=== PATIENT | male | born 1980 | race Caucasian/White ===

== ENCOUNTER → 2017-10-25 14:57 | Outpatient (CLI) | payer BC, SELFPAY ==
[2017-10-25 17:24] LABS: Absolute Lymphocyte Count 2.85 X10^3/ul (0.83-4.51); Absolute Neutrophil Count 2.6 X10^3/uL (2.0-7.7); Basophil# 0.03 X10^3/uL; Basophil% 0.5 % (0-1); Eosinophil# 0.15 X10^3/uL; Eosinophils% 2.4 % (0-5); Hematocrit 26.3 % (40-54); Hemoglobin 8.7 g/dl (13.0-16.5); Lymphocyte # 2.85 X10^3/ul (4.0); Lymphocyte % 45.5 % (19-41); Mean Corp Hgb Conc 33.1 g/gl (32-36); Mean Corpuscular Hgb 43.3 pg (27.0-32.0); Mean Corpuscular Volume 130.8 fL (80-94); Mean Platelet Vol. 9.5 fl (6.2-12.0); Monocyte# 0.63 X10^3/uL; Neutrophil # 2.59 X10^3/uL (2.7-7.7); Neutrophil % 41.3 % (47-70); Platelet Count 297 K/mm3 (150-450); RBC Distribution Width CV 15.3 % (11.6-14.6); RBC Distribution Width SD 73.1 fl (35.1-43.9); Red Blood Count 2.01 M/mm3 (4.6-6.2); White Blood Count 6.3 K/mm3 (4.4-11.0)
[2017-10-25 17:28] LABS: POSITIVE COUNT NO; POSITIVE DIFFERENTIAL NO
[2017-10-25 17:29] LABS: Differential Indicated SCAN CRITERIA MET; POSITIVE MORPHOLOGY YES
[2017-10-25 17:50] LABS: PTHIN 77.1 pg/mL (18.4-80.1)
[2017-10-25 17:52] LABS: Anisocytosis 2+; Macrocytosis 2+; Platelet Estimate ADEQUATE (ADEQ); Target Cells RARE
[2017-10-25 17:53] LABS: Ovalocyte RARE
[2017-10-25 19:25] LABS: ALB/GLOB Ratio 1.5 RATIO (0.9-2.4); AST(SGOT) 11 U/L (15-37); Alanine Aminotransfer ALT/SGPT 27 U/L (16-61); Albumin, Serum 3.8 g/dL (3.2-5.0); Alkaline Phosphatase 82 U/L (45-117); Anion Gap 7 (5-15); BUN 16 mg/dL (7-18); BUN/Creat Ratio 17.6 RATIO (10-20); Calcium,Total 8.1 mg/dL (8.5-10.1); Chloride 109 mmol/L (98-107); Creatinine, Serum 0.91 mg/dL (0.70-1.30); EST Glomerular Filtration Rate 100 mL/min (>60); Est Glom Filt Rate - Afr Amer 121 mL/min (>60); Ferritin 719 ng/mL (26-388); Globulin 2.6 g/dL (2.2-4.2); Glucose 91 mg/dL (74-106); Iron 180 ug/dL (65-175); Iron Binding Capacity,Total 238 ug/dL (250-450); PERCENT IRON SATURATION 75.6 % (15.0-55.0); Potassium 3.8 mmol/L (3.5-5.1); Protein, Total 6.4 g/dL (6.4-8.2); Sodium Level 143 mmol/L (136-145)
[2017-10-28 15:03] LABS: Pathologist Review Reviewed
[2017-10-29 17:02] LABS: Vitamin D 1,25-Dihydroxy 56.4 pg/mL (19.9-79.3)
== END ==
PROVIDERS: Nurse Practitioner; Family Provider Family Medicine; PCP Family Medicine; Visit Provider Internal Medicine Hematology & Oncology
DX: M81.0 Age-related osteoporosis without current pathological fracture (principal); D61.01 Constitutional (pure) red blood cell aplasia
CPT/HCPCS: 80053; 82652; 82728; 83540; 83550; 83970; 85025

== ENCOUNTER → 2017-12-04 09:16 | Outpatient (CLI) | payer BC, SELFPAY ==
--- NOTE | 2017-12-04 09:25 | RAD_ITS ---
STUDY: X-RAY - UNILATERAL RIBS ( RIGHT ) WITH CHEST REASON FOR EXAM: Male, 37 years old. Right lower rib pain. TECHNIQUE - RIBS: 4 view(s) of the ribs. TECHNIQUE - CHEST: Single frontal view of the chest. COMPARISON: 07/18/2017. FINDINGS - RIBS: Stable multiple old bilateral rib fractures. There is one of the right lateral ninth rib which appears subacute but in fact was present on previous study. FINDINGS - CHEST: The lungs are clear and expanded. There is no demonstrated pleural abnormality. Normal size heart. Normal mediastinum and keny. Normal visualized pulmonary arteries. Normal visualized aortic arch and descending thoracic aorta. Normal visualized thoracic spine. Several stable old bilateral rib fractures. There is no demonstrated abnormality of the visualized soft tissue structures of the upper abdomen. RAD/Ribs Uni Min 3V w/PA Chest IMPRESSION: RIBS: Stable multiple old bilateral rib fractures. CHEST: No acute chest disease. Electronically Signed: Bridger Brar MD at 8:38 EDT , Service support ,
== END ==
PROVIDERS: Family Provider Family Medicine; PCP Family Medicine; Visit Provider Family Medicine
DX: R07.81 Pleurodynia (principal)
CPT/HCPCS: 71101

== ENCOUNTER → 2018-04-28 09:36 | Outpatient (CLI) | payer BC, SELFPAY ==
--- NOTE | 2018-04-28 09:39 | US_ITS ---
STUDY: ABDOMINAL ULTRASOUND - RIGHT UPPER QUADRANT REASON FOR VISIT: Male, 38 years old. Hematochromatosis, check for hepatocellular carcinoma. TECHNIQUE: Ultrasound evaluation of the right upper quadrant was performed with real-time and static hung-scale imaging. TECHNICAL QUALITY: Adequate. COMPARISON: None available. FINDINGS: Liver: The liver measures 15.2 cm. There is normal echogenicity of the liver. The intrahepatic bile ducts appear within normal limits. There is hepatic color flow. The direction of portal flow is hepatopetal. There is no demonstrated mass lesion or mass effect identified. No perihepatic fluid noted. Gallbladder: Normal appearing gallbladder. The gallbladder wall measures 2.8 mm. There is a negative sonographic Burton's sign. There is no pericholecystic fluid. There are no gallstones. Common Bile Duct (C.B.D.): The common bile duct measures 3.3 mm. Pancreas: Normal size of the head and body noted. Suboptimal imaging of finger tail limits evaluation. There is normal echogenicity of the visualized pancreas. There is no demonstrated visualized pancreatic mass or cyst. Right Kidney: Normal size of the right kidney. The right kidney measures 10.1 x 5.0 x 4.5 cm. Normal renal cortex. The right cortex measures approximately 1.5 cm. There is no demonstrated renal mass identified. Small right renal simple cyst inferior pole noted 1.8 x 1.3 x 0.9 cm with smooth well demarcated margins and no internal color Doppler signal identified. There is no right hydronephrosis. US/Liver IMPRESSION: Nonacute right upper quadrant ultrasound examination. No sonographic finding of acute cholecystitis, hepatic mass or complete biliary obstruction identified. Small right renal inferior pole simple cyst 1.8 x 1.3 x 0.9 cm. Electronically Signed: Brian Ramires, at 9:06 EDT Tel , Service support ,
== END ==
PROVIDERS: Family Provider Family Medicine; PCP Family Medicine; Visit Provider Internal Medicine Hematology & Oncology
DX: D61.01 Constitutional (pure) red blood cell aplasia (principal); E83.111 Hemochromatosis due to repeated red blood cell transfusions; M85.80 Other specified disorders of bone density and structure, unspecified site
CPT/HCPCS: 76705

== ENCOUNTER → 2018-07-22 09:40 | Outpatient (CLI) | payer BC, SELFPAY ==
[2018-07-22 11:56] LABS: Absolute Lymphocyte Count 2.53 X10^3/ul (0.83-4.51); Absolute Neutrophil Count 4.9 X10^3/uL (2.0-7.7); Basophil# 0.04 X10^3/uL; Basophil% 0.5 % (0-1); Eosinophils% 1.2 % (0-5); Hematocrit 36.9 % (40-54); Hemoglobin 12.4 g/dl (13.0-16.5); Lymphocyte # 2.53 X10^3/ul (4.0); Lymphocyte % 29.9 % (19-41); Mean Corp Hgb Conc 33.6 g/gl (32-36); Mean Corpuscular Hgb 44.4 pg (27.0-32.0); Mean Corpuscular Volume 132.3 fL (80-94); Mean Platelet Vol. 9.3 fl (6.2-12.0); Monocyte# 0.84 X10^3/uL; Monocyte% 9.9 % (0-10); Neutrophil # 4.86 X10^3/uL (2.7-7.7); Neutrophil % 57.4 % (47-70); Platelet Count 243 K/mm3 (150-450); RBC Distribution Width CV 14.1 % (11.6-14.6); RBC Distribution Width SD 65.8 fl (35.1-43.9); Red Blood Count 2.79 M/mm3 (4.6-6.2); White Blood Count 8.5 K/mm3 (4.4-11.0)
[2018-07-22 11:57] LABS: Differential Indicated SCAN CRITERIA MET; POSITIVE COUNT NO; POSITIVE DIFFERENTIAL NO; POSITIVE MORPHOLOGY YES
[2018-07-22 12:01] LABS: ALB/GLOB Ratio 1.6 RATIO (0.9-2.4); AST(SGOT) 14 U/L (15-37); Alanine Aminotransfer ALT/SGPT 30 U/L (16-61); Albumin, Serum 3.8 g/dL (3.2-5.0); Alkaline Phosphatase 82 U/L (45-117); Anion Gap 5 (5-15); BUN 11 mg/dL (7-18); BUN/Creat Ratio 10.8 RATIO (10-20); Calcium,Total 8.2 mg/dL (8.5-10.1); Chloride 107 mmol/L (98-107); Creatinine, Serum 1.02 mg/dL (0.70-1.30); EST Glomerular Filtration Rate 87 mL/min (>60); Est Glom Filt Rate - Afr Amer 105 mL/min (>60); Globulin 2.4 g/dL (2.2-4.2); Glucose 80 mg/dL (74-106); Protein, Total 6.2 g/dL (6.4-8.2); Sodium Level 141 mmol/L (136-145)
== END ==
PROVIDERS: Family Provider Family Medicine; PCP Family Medicine; Referring Provider Internal Medicine Rheumatology; Visit Provider Internal Medicine Rheumatology
DX: M06.4 Inflammatory polyarthropathy (principal); M21.40 Flat foot [pes planus] (acquired), unspecified foot; D61.01 Constitutional (pure) red blood cell aplasia; S32.000D Wedge compression fracture of unspecified lumbar vertebra, subsequent encounter for fracture with routine healing; E83.119 Hemochromatosis, unspecified; F32.9 Major depressive disorder, single episode, unspecified
CPT/HCPCS: 36415; 80053; 85025

== ENCOUNTER → 2018-07-25 14:14 | Outpatient (CLI) | payer BC, SELFPAY ==
--- NOTE | 2018-07-25 14:16 | RAD_ITS ---
HISTORY: Bilateral rib pain Comparison: Right rib series 12/04/2017 and 2 view chest 07/18/2017 Findings: With comparison to previous, no significant change. Numerous remote fractures with fracture callus at the right ribs. At least 3 remote rib fractures on the left with fracture callus. Chronic appearing mild compression deformities of the lower dorsal and upper lumbar spine. No acute fracture seen. No pneumothorax. Normal heart size. The mediastinum is not widened. No vascular congestion, pleural effusion, or acute pulmonary infiltration. RAD/Chest PA and Lateral IMPRESSION: 1. No acute disease or significant change. 2. Bilateral remote rib fractures, more numerous on the right. Additional chronic appearing vertebral compression deformities. Please see comment below. Comment: If there is no history of trauma, rib fractures and vertebral compression deformities are potentially related to pathologic-type fracture in this 38-year-old male. Whole body bone scan should be considered. at [id number] Reported and signed by: Skinny Rojas MD Electronically Signed: Skinny Rojas, at 23:35 EDT Tel , Service support ,
== END ==
PROVIDERS: Family Provider Family Medicine; PCP Family Medicine; Referring Provider Family Medicine; Visit Provider Family Medicine
DX: R07.81 Pleurodynia (principal)
CPT/HCPCS: 71046

== ENCOUNTER → 2018-09-09 12:19 | Outpatient (CLI) | payer BC, SELFPAY ==
[2018-09-09 17:12] LABS: Amphetamine Urine VISTA NEGATIVE (<1000 ng/mL); Barbiturate Urine VISTA NEGATIVE (< 200 ng/mL); Benzodiazepine Urine VISTA NEGATIVE (< 200 ng/mL); Cocaine Urine VISTA NEGATIVE (< 300 ng/mL); Ecstacy Urine VISTA NEGATIVE (< 500 ng/mL); Methadone Urine VISTA NEGATIVE (< 300 ng/mL); PCP Urine VISTA NEGATIVE (< 25 ng/mL); THC Urine VISTA NEGATIVE (< 50 ng/mL); Vista UDS pH Range 6
--- OUTSIDE RECORDS SUMMARY | 2018-12-11 22:12 | XMS RPT_ITS ---
:1980 Author Organization [facility] Support Name Relationship Address Phone BROOKE MICHAEL Unavailable [address] + [place] [address] D Unavailable Unavailable Unavailable BROOKE MICHAEL Unavailable [address] + [place], [place] [phone] BROOKE MICHAEL Unavailable [address] Unavailable [place], [place] [phone] NOT GIVEN Unavailable Unavailable Unavailable BROOKE MICHAEL Unavailable [address] + [place] [address] D Unavailable Unavailable Unavailable BROOKE MICHAEL Unavailable [address] + [place] [address] D Unavailable Unavailable Unavailable BROOKE MICHAEL Unavailable [address] + [place] [address] D Unavailable Unavailable Unavailable BROOKE MICHAEL Unavailable [address] + [place] [address] D Unavailable Unavailable Unavailable BROOKE MICHAEL Unavailable [address] + [place] [address] D Unavailable Unavailable Unavailable BROOKE MICHAEL Unavailable [address] + [place] [address] D Unavailable Unavailable Unavailable BROOKE MICHAEL Unavailable [address] + [place], [place] [phone] BROOKE MICHAEL Unavailable [address] Unavailable [place], [place] [id number] NOT GIVEN Unavailable Unavailable Unavailable BROOKE MICHAEL Unavailable [address] + [place], [place] [phone] BROOKE MICHAEL Unavailable [address] Unavailable [place], [place] [id number] NOT GIVEN Unavailable Unavailable Unavailable BROOKE MICHAEL Unavailable [address] + [place], [place] [id number] ALEC BROOKE Unavailable [address] Unavailable [place], [place] [id number] NOT GIVEN Unavailable Unavailable Unavailable ALEC BROOKE Unavailable [address] + [place] [address] D Unavailable Unavailable Unavailable ALEC BROOKE Unavailable [address] + [place], [place] [phone] ALEC BROOKE Unavailable [address] Unavailable [place], [place] [id number] NOT GIVEN Unavailable Unavailable Unavailable CRAFT BROOKE Unavailable [address] + [place], [place] [phone] ALEC BROOKE Unavailable [address] Unavailable [place], [place] [phone] NOT GIVEN Unavailable Unavailable Unavailable ALEC BROOKE Unavailable [address] + [place] [address] D Unavailable Unavailable Unavailable KATHLEEN MICHAELETTE Unavailable [address] + [place] [address] D Unavailable Unavailable Unavailable ALEC BROOKE Unavailable [address] + [place] [address] D Unavailable Unavailable Unavailable Care Team Providers Name Role Phone YANN SHIELDS MD Admitting Unavailable YANN SHIELDS MD Attending Unavailable YANN SHIELDS MD Primary Care Unavailable BUTCH VALENCIA DO Admitting Unavailable BUTCH VALENCIA DO Attending Unavailable NICA PEARSON Referring Unavailable BUTCH VALENCIA DO Primary Care Unavailable NICA PEARSON Consulting Unavailable PROVIDER, UNKNOWN Consulting Unavailable NICA PEARSNO Admitting Unavailable NICA PEARSON Attending Unavailable NICA PEARSON Primary Care Unavailable NICA PEARSON Consulting Unavailable PROVIDER, UNKNOWN Consulting Unavailable KNAPIC, FABIO S Admitting Unavailable KNAMANUEL FABIO S Attending Unavailable COREYAPIC, FABIO S Primary Care Unavailable NICA PEARSON Consulting Unavailable PROVIDER, UNKNOWN Consulting Unavailable YANN SHIELDS MD Admitting Unavailable YANN SHIELDS MD Attending Unavailable YANN SHIELDS MD Primary Care Unavailable NICA PEARSON Consulting Unavailable PROVIDER, UNKNOWN Consulting Unavailable NICA PEARSON Admitting Unavailable NICA PEARSON Attending Unavailable NICA PEARSON Primary Care Unavailable NICA PEARSON Consulting Unavailable PROVIDER, UNKNOWN Consulting Unavailable Nica Pearson Attending Unavailable Nica Pearson Primary Care Unavailable Isckarus, Mansour Attending Unavailable Nica Pearson Primary Care Unavailable Fabio Dacosta NP-C Consulting Unavailable Isckarus, Mansour Attending Unavailable Isckarus, Mansour Referring Unavailable Bonny Pearson Primary Care Unavailable Isckarus, Mansour Consulting Unavailable Isckarus, Mansour Attending Unavailable LiliNica rivera Primary Care Unavailable Isckarus, Mansour Consulting Unavailable KaushallanYann bush Attending Unavailable KaushallanJuliano bushma Referring Unavailable Nica Pearson Primary Care Unavailable Isckarus, Mansour Consulting Unavailable Isckarus, Mansour Attending Unavailable Nica Pearson Referring Unavailable LiliNica rivera Primary Care Unavailable Isckarus, Mansour Consulting Unavailable Isckarus, Mansour Attending Unavailable Nica Pearson Referring Unavailable Nica Pearson Primary Care Unavailable Isckarus, Mansour Consulting Unavailable Isckarus, Mansour Attending Unavailable Isckarus, Mansour Referring Unavailable Nica Pearson Primary Care Unavailable Jaxon Valencia Consulting Unavailable Nica Pearson Attending Unavailable Nica Pearson Primary Care Unavailable Isckarus, Mansour Attending Unavailable Nica Pearson Primary Care Unavailable LiliNica rivera Referring Unavailable LiliNica rivera Attending Unavailable LiliNica rivera Referring Unavailable LiliNica rivera Primary Care Unavailable PROBLEMS PROBLEMS DATE TYPE CONDITION / CODE ATTENDING STATUS SOURCE 09/09/2018 Unknown Z51.81 - Encounter Nica Pearson Active [place] for therapeutic drug Community level monitoring / Hospital Z51.81(ICD-10) Repository 08/04/2018 Unknown 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.01 - Isckarus, Active [place] 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 / Repository D61.01(ICD-10) 08/04/2018 Unknown D72.810 - Isckarus, Active [place] Lymphocytopenia / [facility] D72.810(ICD-10) Hospital Repository 08/04/2018 Unknown E83.111 - Isckarus, Active [place] Hemochromatosis due [facility] to repeated red Hospital blood cell Repository transfusions / E83.111(ICD-10) 07/25/2018 Unknown R07.81 - Pleurodynia Nica Pearson Active [place] / R07.81(ICD-10) Community Hospital Repository 07/22/2018 Unknown 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, Active [place] polyarthropathy / [facility] M06.4(ICD-10) Hospital Repository 07/22/2018 Unknown M21.40 - Flat foot Vellanrachelle, Active [place] [pes planus] [facility] (acquired), Hospital unspecified foot / Repository M21.40(ICD-10) 07/22/2018 Unknown S32.000D - Wedge Vellanrachelle, Active [place] compression fracture [facility] of unspecified Hospital lumbar vertebra, Repository subsequent encounter for fracture with routine healing / S32.000D(ICD-10) 07/22/2018 Unknown E83.119 - Vellanrachelle, Active [place] Hemochromatosis, [facility] unspecified / Hospital E83.119(ICD-10) Repository 05/15/2018 Unknown M85.80 - Other Isckarus, Active [place] specified disorders [facility] of bone density and Hospital structure, Repository unspecified site / M85.80(ICD-10) 03/17/2018 Admitting Sprain of anterior KNAPIC, Active [place] Pomerene Diagnosis cruciate ligament of [facility] left knee, initial Hospital encounter / Repository S14390X(ICD-10) 03/17/2018 Principle Sprain of anterior KNAPIC, Active [facility] Pomerene Diagnosis cruciate ligament of [facility] left knee, initial Hospital encounter / Repository X13898V(ICD-10) PROCEDURES PROCEDURES No Procedure Records FoundRESULTS RESULTS URINE DRUG SCREEN Collected: 09/09/2018 Status: F Source: [place] (VISTA) 12:23 PM [facility] HOSPITAL REPOSITORY Order Comment: List of Drugs Taken or Suspected? UNKNOWN TYPE CODE TESTS RESULT OUT OF RANGE REFERENCE UNITS LAB L505.0075 TO BE Normal CONFIRMED Result Comment: CONFIRMATORY TESTING FOR ALL POSITIVE URINE DRUG SCREEN RESULTS WILL ONLY BE SENT OUT UPON PHYSICIAN ORDER. VISTA Urine Drug Screen methods provide only preliminary analytical test results. A more specific alternate chemical method must be used in order to obtain a confirmed analytical result. Gas chromatography/mass spectrometery (GC/MS) is the preferred confirmatory method. Clinical consideration and professional judgement should be applied to any drug of abuse test result, particularly when preliminary positive results are used. URINE TCA TESTING MUST BE ORDERED SEPARATELY. USE TEST MNEMONIC: [facility] LAB L505.5005 VISTA UDS PH 6 Normal LAB L505.5015 <1000 ng/mL AMPHETAMINES Normal NEGATIVE LAB L505.5025 < 200 ng/mL BARBITIURATES Normal NEGATIVE LAB L505.5035 < 200 ng/mL BENZODIAZIPINE Normal NEGATIVE LAB L505.5045 < 300 ng/mL COCAINE Normal NEGATIVE LAB L505.5055 < 500 ng/mL ECSTACY Normal NEGATIVE LAB L505.5065 < 300 ng/mL METHADONE Normal NEGATIVE LAB L505.5075 < 300 ng/mL OPIATES Normal NEGATIVE LAB L505.5085 < 25 ng/mL PCP Normal NEGATIVE LAB L505.5095 < 50 ng/mL THC Normal NEGATIVE Performed By: #### L505.5000 #### [facility] [address] [facility] [place], [place], [address] CT CHEST W/CONTRAST Observed: 08/27/2018 Status: F Source: [facility] 11:[address] [address] Patient: TAN MICHAEL Phone#: : 1980 Age: 38 Gender: M Pt. Type: Out Account: [id number] Location: [facility] Ordering: NICA PEARSON Exam Date: 08/27/2018/11:06 Family Phys: Charge Code: [id number] Physician: Mingo Order #: [id number] DLP Dose#: PROCEDURE: CT CHEST WITH CONTRAST COMPARISON: None. INDICATIONS: Microfractures versus Rib Fractures TECHNIQUE: After obtaining the patient's consent, CT images were obtained with non-ionic intravenous contrast material. All CT scans at this facility use dose modulation, iterative reconstruction, and/or weight based dosing when appropriate to reduce radiation dose to as low as reasonably achievable. IV CONTRAST: Omnipaque 350,65ml TOTAL DOSE: CTDIvol(mGy) FINDINGS: LUNGS: A bleb is present in the anterior right middle lobe. No visible pulmonary disease. VASCULATURE: Normal. No visible pulmonary arterial thrombus or attenuation. KENY: Normal. No mass or adenopathy. MEDIASTINUM: Normal. No mass or adenopathy. CARDIAC: Normal. No enlargement, pericardial thickening, or significant calcification. AORTA: Normal. No aneurysm or dissection. PLEURA: Normal. No mass or effusion. CHEST WALL: Normal. No mass or axillary adenopathy. LIMITED ABDOMEN: Normal. Limited images of the upper abdomen are unremarkable. BONES: Superior endplate Schmorl's nodes are present at multiple levels. Healed posterior right rib fractures are present. OTHER: Negative. CONCLUSION: Continued Report - Page 2 of 2 Patient: TAN MICHAEL Phone#: : 1980 Age: 38 Gender: M Pt. Type: Out Account: [id number] Location: [facility] Ordering: NICA PEARSON Exam Date: 08/27/2018/11:06 Family Phys: Charge Code: [id number] Physician: Mingo Order #: [id number] DLP Dose#: 1. There is no evidence of acute pulmonary abnormality. 2. Multiple Schmorl's nodes at the thoracic vertebral bodies are noted. 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 His disease preapproved to be steroid responsive and dependent. He has been on prednisone since current dose being 20 mg daily titrated to a target hemoglobin of 12 g. Since diagnosis he has required less than a total of 10 units of packed red cell transfusions done last was in the early .. And he was diagnosed with iron overload and prescribed Exjade but that he has not taken the drug regularly and his total use been for less than 1 year intermittently. Around the same time he was diagnosed with steroid-induced bone loss and was prescribed calcium, vitamin D, and Fosamax. Lymphocytopenia has been noted the past as well as hypogammaglobulinemia. He has not suffered from any unusual or recurrent bacterial infections. On bactrim for PCP prophylaxis since 2016 and Fosamax for steroid induced bone loss. He reports that he suffered from chickenpox on more than one occasion, no shingles or other opportunistic infections. He was followed at the [facility] division of epidemiology and genetics as part of the study. 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 He already had a screening colonoscopy and an EGD( for GERD) Has a positive family history of colon cancer. There is believed that he inherited this illness from his mother who suffered from severe transfusion dependent anemia and has a son with the same diagnosis. Treatment: Prednisone Fosamax () Bactrim (2016) Exjade (noncompliant) PRBCs prn - Past Medical/Social History Past Medical History Past Medical History: Anemia,Arthritis,Blood transfusion,Depression, GERD,Headaches,Hereditary hemochromatosis, Osteopenia,Rheumatoid arthritis,Substance abuse, Fibromyalgia,Nausea,Fatigue,Constipation, Diarrhea Other Past Medical History: ACID REFLUX LUMBAR HERNIATED DISC HYPOTENSION FRACTURES Past Surgical History Surgical: Colonoscopy Other Surgical History: bone marrow procedure (3) Family History Paternal Past Medical History: Stroke Paternal History of Cancer Lung cancer,Pancreatic cancer Maternal Past Medical History: Anemia,Stroke Maternal History of Cancer: Lung cancer,Ovarian cancer Social History Social History: No changes Smoking Status Current every day smoker Review of Systems Constitutional:: Reports: - - Able to do ADL independently. Denies: Fever, Sweats, Weight loss, Appetite change, Chills Cardiovascular:: Denies: Chest pain, Palpitations, Dyspnea on exertion, Orthopnea, PND, Shortness of breath Respiratory: Denies: Cough, Hemoptysis, Shortness of Breath, Wheezing Gastrointestinal:: Denies: Abdominal pain, Nausea, Vomiting, Diarrhea, Constipation, Hematochezia Genitourinary: Denies: Dysuria, Hematuria, 15, Flank pain Musculoskeletal:: Reports: Arthritis, - - Ribs pain and arthritis. Denies: Back pain, Myalgia, Arthralgia Skin: Denies: Rash, Skin Changes, Wounds Neurological:: Denies: Headache, Dizziness, Visual changes, Tinnitus, Hearing loss Psychiatric: Denies: Anxiety, Depression, Homicidal Ideations, Suicidal Ideations Vital Signs Height 6 ft Weight: 82.01 kg Weight in Pounds 180.8 lbs Pulse Ox 95 - Physical Exam General: Alert, Oriented x3, No apparent distress, - - Cushingoid ECOG 1 HEENT: Atraumatic, PERRLA, EOMI, Normocephalic Oropharynx:: Dry mucosa Neck:: Supple, Trachea midline. Negative for: JVD, bilateral Cardiac:: Regular rate, Regular rhythm, Normal S1, Normal S2. Negative for: Murmur Lungs: Clear to auscultation, Excusion symmetrical. Negative for: Rhonchi, Wheezes Abdomen:: Soft, Non-tender, Non-distended. 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 Diagnosis was made at age 18 months, steroid responsive but dependent, total packed red blood cell transfusions less than 10 since diagnosis. Patient is currently on prednisone 20 mg daily with the target hemoglobin 10- 12 g/DL. He did feel poorly and his hemoglobin dropped to 10 g when the dose was reduced to 20 mg alternating with 10 mg. 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 Patient has been off iron chelation therapy with Exjade (intolerance to side effects and cost). He appears to have a mild asymptomatic iron overload with a serum ferritin of less than 1000 and no evidence for end organ damage. Due to his underlying bone marrow disease he would not be able to tolerate phlebotomy protocol. Therefore I advised monitoring of his hemochromatosis status and if there is progressive rise in his iron overload will have to resume iron chelation therapy. 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 Did not wish to switch to an injectable agent and next bone density is due July 2019. 4-lymphopenia secondary to chronic steroid therapy. Has started on Bactrim for PCP prophylaxis in late 2017. Patient may receive killed virus vaccines but no live virus vaccines. 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 Will need cancer screening, for prostate at age 46. He already had a colonoscopy due to some GI problems and positive family history of colon cancer. Impression and recommendations were discussed with patient. Follow-up in 3 months. Medications: Prescriptions This Visit Medication Instructions Recorded Alendronate Sodium [Fosamax] 70 mg PO QWEEK 05/29/17 Primary Care Provider: Bonny Pearson MD Referring Provider: Kathryn Cruz MD 08/04/18 3912 <Electronically signed by Kathryn Cruz MD> Date Kathryn Cruz MD Cosigner Signature: Date (if applicable) CC: CBC W/DIFF, AUTOMATED Collected: 08/04/2018 Status: F Source: [place] 10:35 AM [facility] REPOSITORY Order Comment: Reason for Laboratory Test . TYPE CODE TESTS RESULT OUT OF RANGE REFERENCE UNITS LAB L100.1000 4.4-11.0 K/mm3 Normal WBC 10.4 LAB L100.1200 4.6-6.2 M/mm3 Low RBC 2.90 LAB L100.1300 13.0-16.5 g/dl Low HGB 12.6 LAB L100.1400 40-54 % Low HCT 37.2 LAB L100.1500 80-94 fL High MCV 128.3 LAB L100.1600 27.0-32.0 pg High MCH 43.4 LAB L100.1700 32-36 g/gl Normal MCHC 33.9 LAB L100.1810 11.6-14.6 % Normal RDW CV 13.8 LAB L100.1820 35.1-43.9 fl High RDW SD 64.9 LAB L100.1900 150-450 K/mm3 Normal PLT 255 LAB L100.2000 6.2-12.0 fl Normal MPV 9.3 LAB L100.2100 47-70 % High NEUT% 85.6 LAB L100.2200 19-41 % Low LY% 9.2 LAB L100.2300 0-10 % Normal MONO% 4.6 LAB L100.2400 0-5 % Normal EO% 0.2 LAB L100.2500 0-1 % Normal BASO% 0.2 LAB L100.2550 0.0-0.9 % Normal IM GRAN % 0.200 Result Comment: IG% - Immature Granulocytes (promyelocytes, myelocytes and metamyelocytes) > 1% indicates that a LEFT SHIFT is Present. LAB L100.2620 2.0-7.7 X10 3/uL High Absolute Neut 8.9 LAB L100.2720 0.83-4.51 X10 3/ul Normal Absolute Lymph 0.95 Performed By: #### L100.0100 #### [facility] [place], [address] CHEST PA AND LATERAL Observed: 07/25/2018 Status: F Source: [place] 2:17 PM [facility] HOSPITAL REPOSITORY [facility] [address] [place] [address] Chest PA and Lateral MR#: [id number] Acct: [id number] Name: TAN MICHAEL Rep #: [id number] : 1980 M 38 From: Skinny Rojas MD PCP: Nica Pearson DO Status: REG CLI Study: Chest PA and Lateral Date of Exam: 07/25/18 Exam# [id number] Ordering Dr: Nica Pearson DO HISTORY: Bilateral rib pain Comparison: Right rib series 12/04/2017 and 2 view chest 07/18/2017 Findings: With comparison to previous, no significant change. Numerous remote fractures with fracture callus at the right ribs. At least 3 remote rib fractures on the left with fracture callus. Chronic appearing mild compression deformities of the lower dorsal and upper lumbar spine. No acute fracture seen. No pneumothorax. Normal heart size. The mediastinum is not widened. No vascular congestion, pleural effusion, or acute pulmonary infiltration. RAD/Chest PA and Lateral IMPRESSION: 1. No acute disease or significant change. 2. Bilateral remote rib fractures, more numerous on the right. Additional chronic appearing vertebral compression deformities. Please see comment below. Comment: If there is no history of trauma, rib fractures and vertebral compression deformities are potentially related to pathologic- type fracture in this 38-year-old male. Whole body bone scan should be considered. at [id number] Reported and signed by: Skinny Rojas MD Electronically Signed: Skinny Rojas, at 23:35 EDT Tel , Service support , CC: Nica Pearson DO Rn Research: Signed CBC W/DIFF, AUTOMATED Collected: 07/22/2018 Status: F Source: [place] 9:47 AM [facility] REPOSITORY TYPE CODE TESTS RESULT OUT OF RANGE REFERENCE UNITS LAB L100.1000 4.4-11.0 K/mm3 Normal WBC 8.5 LAB L100.1200 4.6-6.2 M/mm3 Low RBC 2.79 LAB L100.1300 13.0-16.5 g/dl Low HGB 12.4 LAB L100.1400 40-54 % Low HCT 36.9 LAB L100.1500 80-94 fL High MCV 132.3 LAB L100.1600 27.0-32.0 pg High MCH 44.4 LAB L100.1700 32-36 g/gl Normal MCHC 33.6 LAB L100.1810 11.6-14.6 % Normal RDW CV 14.1 LAB L100.1820 35.1-43.9 fl High RDW SD 65.8 LAB L100.1900 150-450 K/mm3 Normal PLT 243 LAB L100.2000 6.2-12.0 fl Normal MPV 9.3 LAB L100.2100 47-70 % Normal NEUT% 57.4 LAB L100.2200 19-41 % Normal LY% 29.9 LAB L100.2300 0-10 % Normal MONO% 9.9 LAB L100.2400 0-5 % Normal EO% 1.2 LAB L100.2500 0-1 % Normal BASO% 0.5 LAB L100.2550 0.0-0.9 % High IM GRAN % 1.100 Result Comment: IG% - Immature Granulocytes (promyelocytes, myelocytes and metamyelocytes) > 1% indicates that a LEFT SHIFT is Present. LAB L100.2620 2.0-7.7 X10 3/uL Normal Absolute Neut 4.9 LAB L100.2720 0.83-4.51 X10 3/ul Normal Absolute Lymph 2.53 LAB L100.4500 Normal SMEAR COMMENT COMMENT Result Comment: SLIDE SCANNED - 1+ ANISO. Performed By: #### L100.0100 #### [facility] [address] [place], [address] COMPREHENSIVE METABOLIC Collected: 07/22/2018 Status: F Source: [place] 9:47 AM [facility] REPOSITORY TYPE CODE TESTS RESULT OUT OF RANGE REFERENCE UNITS LAB L501.0100 74-106 mg/dL Normal GLU 80 Result Comment: Please note revised GLUCOSE reference range effective 2017. LAB L501.1000 7-18 mg/dL Normal BUN 11 LAB L501.1100 0.70-1.30 mg/dL Normal CREAT,SERUM 1.02 Result Comment: The validity of the calculated GFR AND GFRAA in patients over 70 years has not been determined. Clinical correlation is essential. LAB L501.1110 >60 mL/min Normal EST GFR 87 Result Comment: Non- GFR Calc LAB L501.1115 >60 mL/min Normal EST GFR - AA 105 Result Comment: GFR Calc LAB L501.1300 10-20 RATIO Normal BUN/CRE 10.8 LAB L501.1500 6.4-8.2 g/dL Low T PROT 6.2 LAB L501.1800 3.2-5.0 g/dL Normal ALB 3.8 LAB L501.1950 2.2-4.2 g/dL Normal GLOB 2.4 LAB L501.2000 0.9-2.4 RATIO Normal A/G 1.6 LAB L501.2200 8.5-10.1 mg/dL Low CA 8.2 LAB L501.4100 15-37 U/L Low AST 14 LAB L501.4305 45-117 U/L Normal ALK P 82 LAB L501.4405 16-61 U/L Normal ALT 30 LAB L501.4600 0.20-1.00 mg/dL T Normal BILI 0.20 LAB L501.5300 136-145 mmol/L NA Normal 141 LAB L501.5600 3.5-5.1 mmol/L K Normal 4.0 LAB L501.5900 98-107 mmol/L CL Normal 107 LAB L501.6100 21.0-32.0 mmol/L Normal CO2 29.0 LAB L501.6200 5-15 Normal GAP 5 Performed By: #### L500.4050 #### [facility] [address] [place], [address] ONCOLOGY VISIT REPORT Observed: 05/05/2018 Status: F Source: [place] 5:03 PM [facility] HOSPITAL REPOSITORY [facility] [address] [facility] 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 His disease preapproved to be steroid responsive and dependent. He has been on prednisone since current dose being 20 mg daily titrated to a target hemoglobin of 12 g. Since diagnosis he has required less than a total of 10 units of packed red cell transfusions done last was in the early .. And he was diagnosed with iron overload and prescribed Exjade but that he has not taken the drug regularly and his total use been for less than 1 year intermittently. Around the same time he was diagnosed with steroid-induced bone loss and was prescribed calcium, vitamin D, and Fosamax. Lymphocytopenia has been noted the past as well as hypogammaglobulinemia. He has not suffered from any unusual or recurrent bacterial infections. On bactrim for PCP prophylaxis since 2016 and Fosamax for steroid induced bone loss. He reports that he suffered from chickenpox on more than one occasion, no shingles or other opportunistic infections. He was followed at the [facility] division of epidemiology and genetics as part of the study. 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 He already had a screening colonoscopy and an EGD( for GERD) Has a positive family history of colon cancer. There is believed that he inherited this illness from his mother who suffered from severe transfusion dependent anemia and has a son with the same diagnosis. Treatment: Prednisone Fosamax (2010s) Bactrim (2017) Exjade (noncompliant) PRBCs prn - Past Medical/Social History Past Medical History Past Medical History: Anemia,Arthritis,Blood transfusion,Depression, GERD,Headaches,Hereditary hemochromatosis, Osteopenia,Rheumatoid arthritis,Substance abuse, Fibromyalgia,Nausea,Fatigue,Constipation, Diarrhea Other Past Medical History: ACID REFLUX LUMBAR HERNIATED DISC HYPOTENSION FRACTURES Past Surgical History Surgical: Colonoscopy Other Surgical History: bone marrow procedure (3) Family History Paternal Past Medical History: Stroke Paternal History of Cancer Lung cancer,Pancreatic cancer Maternal Past Medical History: Anemia,Stroke Maternal History of Cancer: Lung cancer,Ovarian cancer Social History Social History: No changes Smoking Status Current every day smoker Review of Systems Constitutional:: Reports: Weakness, Fatigue - Chronic. Denies: Fever, Sweats, Weight loss, Appetite change, Chills Cardiovascular:: Denies: Chest pain, Palpitations, Dyspnea on exertion, Orthopnea, PND, Shortness of breath Respiratory: Denies: Cough, Hemoptysis, Shortness of Breath, Wheezing Gastrointestinal:: Denies: Abdominal pain, Nausea, Vomiting, Diarrhea, Constipation, Hematochezia Genitourinary: Denies: Dysuria, Hematuria, 15, Flank pain Musculoskeletal:: Denies: Back pain, Myalgia, Arthralgia Skin: Denies: Rash, Skin Changes, Wounds Neurological:: Denies: Headache, Dizziness, Visual changes, Tinnitus, Hearing loss Psychiatric: Denies: Anxiety, Depression, Homicidal Ideations, Suicidal Ideations Vital Signs Height 6 ft Weight: 82.01 kg Weight in Pounds 180.8 lbs Pulse Ox 95 - Physical Exam General: Alert, Oriented x3, No apparent distress, - - ECOG 1, cushingoid HEENT: Atraumatic, PERRLA, EOMI, Normocephalic Oropharynx:: Dry mucosa Neck:: Supple, Trachea midline. Negative for: JVD, bilateral Cardiac:: Regular rate, Regular rhythm, Normal S1, Normal S2. Negative for: Murmur Lungs: Clear to auscultation, Excusion symmetrical. Negative for: Rhonchi, Wheezes Abdomen:: Soft, Non-tender, Non-distended. Negative for: Hepatosplenomegaly Extremities:: Negative for: Cyanosis, Edema Neurological: Neuro grossly intact Skin:: Negative for: Lesions, Rash, Petechiae, Ecchymosis Psychiatric:: Appropriate affect, Euthymic Lymphatics:: Negative for: Cervical lymphadenopathy, Supraclavicular lymphadenopathy Laboratory Data: Laboratory Tests WBC 6.7 (4.4-11.0) K/mm3 RBC 2.83 L (4.6-6.2) M/mm3 Hgb 12.6 L (13.0-16.5) g/dl Laboratory Tests Hgb 10.8 L 12.1 L 12.1 L Ferritin Hgb 12.3 L 11.4 L 12.6 L Ferritin Hgb 13.8 12.0 L Ferritin 661 H Hgb 8.7 L 10.5 L Ferritin 719 H Hgb 11.8 L 11.5 L 12.6 L Ferritin Assessment and Plan 37-year-old male with 1- Briana-Blackfan anemia (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 Diagnosis was made at age 18 months, steroid responsive but dependent, total packed red blood cell transfusions less than 10 since diagnosis. Patient is currently on prednisone 20 mg daily with the target hemoglobin 10- 12 g/DL. 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 Patient has been off iron chelation therapy with Exjade (intolerance to side effects and cost). He appears to have a mild asymptomatic iron overload with a serum ferritin of less than 1000 and no evidence for end organ damage. Due to his underlying bone marrow disease he would not be able to tolerate phlebotomy protocol. Therefore I advised monitoring of his hemochromatosis status and if there is progressive rise in his iron overload will have to resume iron chelation therapy. 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 Did not wish to switch to an injectable agent and next bone density is due July 2019. 4-lymphopenia secondary to chronic steroid therapy. Has started on Bactrim for PCP prophylaxis in late 2017. Patient may receive killed virus vaccines but no live virus vaccines. 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 Will need cancer screening, for prostate at age 46. He already had a colonoscopy due to some GI problems and positive family history of colon cancer. Impression and recommendations were discussed with patient. Follow-up in 3 months. Medications: Prescriptions This Visit Medication Instructions Recorded Alendronate Sodium [Fosamax] 70 mg PO QWEEK 05/29/17 Primary Care Provider: Bonny Pearson MD Referring Provider: Kathryn Cruz MD 05/05/18 2883 <Electronically signed by Kathryn Cruz MD> Date Kathryn Cruz MD Cosigner Signature: Date (if applicable) CC: CBC W/DIFF, AUTOMATED Collected: 05/05/2018 Status: F Source: [place] 10:42 AM [facility] REPOSITORY Order Comment: Reason for Laboratory Test . TYPE CODE TESTS RESULT OUT OF RANGE REFERENCE UNITS LAB L100.1000 4.4-11.0 K/mm3 Normal WBC 6.7 LAB L100.1200 4.6-6.2 M/mm3 Low RBC 2.83 LAB L100.1300 13.0-16.5 g/dl Low HGB 12.6 LAB L100.1400 40-54 % Low HCT 36.4 LAB L100.1500 80-94 fL High MCV 128.6 LAB L100.1600 27.0-32.0 pg High MCH 44.5 LAB L100.1700 32-36 g/gl Normal MCHC 34.6 LAB L100.1810 11.6-14.6 % Normal RDW CV 13.3 LAB L100.1820 35.1-43.9 fl High RDW SD 60.8 LAB L100.1900 150-450 K/mm3 Normal PLT 246 LAB L100.2000 6.2-12.0 fl Normal MPV 9.1 LAB L100.2100 47-70 % Normal NEUT% 67.6 LAB L100.2200 19-41 % Normal LY% 21.8 LAB L100.2300 0-10 % Normal MONO% 8.9 LAB L100.2400 0-5 % Normal EO% 0.8 LAB L100.2500 0-1 % Normal BASO% 0.3 LAB L100.2550 0.0-0.9 % Normal IM GRAN % 0.600 Result Comment: IG% - Immature Granulocytes (promyelocytes, myelocytes and metamyelocytes) > 1% indicates that a LEFT SHIFT is Present. LAB L100.2620 2.0-7.7 X10 3/uL Normal Absolute Neut 4.5 LAB L100.2720 0.83-4.51 X10 3/ul Normal Absolute Lymph 1.45 Performed By: #### L100.0100, L500.4050 #### [facility] [address] [place], [address] COMPREHENSIVE METABOLIC Collected: 05/05/2018 Status: F Source: [facility] 10:42 AM [facility] REPOSITORY Order Comment: Reason for Laboratory Test . TYPE CODE TESTS RESULT OUT OF RANGE REFERENCE UNITS LAB L501.0100 74-106 mg/dL Normal GLU 85 Result Comment: Please note revised GLUCOSE reference range effective 2017. LAB L501.1000 7-18 mg/dL Normal BUN 14 LAB L501.1100 0.70-1.30 mg/dL Normal CREAT,SERUM 0.92 Result Comment: The validity of the calculated GFR AND GFRAA in patients over 70 years has not been determined. Clinical correlation is essential. LAB L501.1110 >60 mL/min Normal EST GFR 99 Result Comment: Non- GFR Calc LAB L501.1115 >60 mL/min Normal EST GFR - AA 119 Result Comment: GFR Calc LAB L501.1255 ml/min Normal Estimated CRCL 120.66 LAB L501.1300 10-20 RATIO BUN/CRE Normal 15.3 LAB L501.1500 6.4-8. g/dL 2 T PROT Normal 6.7 LAB L501.1800 3.2-5. g/dL 0 ALB Normal 4.0 LAB L501.1950 2.2-4. g/dL 2 GLOB Normal 2.7 LAB L501.2000 0.9-2. RATIO 4 A/G Normal 1.5 LAB L501.2200 8.5-10 mg/dL .1 CA Normal 8.6 LAB L501.4100 15-37 U/L Low AST 11 LAB L501.4305 45-117 U/L ALK P Normal 81 LAB L501.4405 16-61 U/L ALT Normal 22 LAB L501.4600 0.20-1 mg/dL .00 T BILI Normal 0.30 LAB L501.5300 136-14 mmol/L 5 NA Normal 141 LAB L501.5600 3.5-5. mmol/L 1 K Normal 4.0 LAB L501.5900 98-107 mmol/L CL Normal 107 LAB L501.6100 21.0-3 mmol/L 2.0 CO2 Normal 29.0 LAB L501.6200 5-15 GAP Normal 5 Performed By: #### L100.0100, L500.4050 #### [facility] [address] [place], [place], [id number] AFP, TUMOR MARKER Collected: 05/05/2018 Status: F Source: [place] 10:42 AM [facility] REPOSITORY Order Comment: Reason for Laboratory Test . Is Patient ? N TYPE CODE TESTS RESULT OUT OF RANGE REFERENCE UNITS LAB L3300.0700 0.0-8.3 ng/mL Normal AFP TUMOR 4.0 2253 Result Comment: [employer] ECLIA methodology Performed at: - [facility] [address] [id number] Print Controller: Sylvester Medina PhD, Phone: [phone] Performed By: #### L3300.0700 #### [facility] (refer to report for specific site) refer to report for address and phone number LIVER Observed: 04/28/2018 Status: F Source: [place] 9:40 AM [facility] REPOSITORY [facility] [address] [place] [address] Liver MR#: [id number] Acct: [id number] Name: TAN MICHAEL Rep #: [id number] : 1980 M 38 From: Brian Ramires MD PCP: Nica Pearson DO Status: REG CLI Study: Liver Date of Exam: 04/28/18 Exam# [id number] Ordering Dr: Kathryn Cruz MD STUDY: ABDOMINAL ULTRASOUND - RIGHT UPPER QUADRANT REASON FOR VISIT: Male, 38 years old. Hematochromatosis, check for hepatocellular carcinoma. TECHNIQUE: Ultrasound evaluation of the right upper quadrant was performed with real-time and static hung-scale imaging. TECHNICAL QUALITY: Adequate. COMPARISON: None available. FINDINGS: Liver: The liver measures 15.2 cm. There is normal echogenicity of the liver. The intrahepatic bile ducts appear within normal limits. There is hepatic color flow. The direction of portal flow is hepatopetal. There is no demonstrated mass lesion or mass effect identified. No perihepatic fluid noted. Gallbladder: Normal appearing gallbladder. The gallbladder wall measures 2.8 mm. There is a negative sonographic Burton's sign. There is no pericholecystic fluid. There are no gallstones. Common Bile Duct (C.B.D.): The common bile duct measures 3.3 mm. Pancreas: Normal size of the head and body noted. Suboptimal imaging of finger tail limits evaluation. There is normal echogenicity of the visualized pancreas. There is no demonstrated visualized pancreatic mass or cyst. Right Kidney: Normal size of the right kidney. The right kidney measures 10.1 x 5.0 x 4.5 cm. Normal renal cortex. The right cortex measures approximately 1.5 cm. There is no demonstrated renal mass identified. Small right renal simple cyst inferior pole noted 1.8 x 1.3 x 0.9 cm with smooth well demarcated margins and no internal color Doppler signal identified. There is no right hydronephrosis. US/Liver IMPRESSION: Nonacute right upper quadrant ultrasound examination. No sonographic finding of acute cholecystitis, hepatic mass or complete biliary obstruction identified. Small right renal inferior pole simple cyst 1.8 x 1.3 x 0.9 cm. Electronically Signed: Brian Ramires, at 9:06 EDT Tel , Service support , CC: Kathryn Cruz MD; Nica Pearson DO Rn Research: Signed CBC Collected: 04/04/2018 Status: C Source: [facility] 4:25 PM [facility] REPOSITORY TYPE CODE TESTS RESULT OUT OF RANGE REFERENCE UNITS LAB CBC(LOINC) CBC Result Comment: CORRECTED REPORT CBC-COMPLETE BLOOD COUNT LAB WBC(LOINC) 4.5 - 10.8 x 10EE3/UL WBC 6.2 LAB RBC(LOINC) 4.50 - x 10EE6/UL 6.00 RBC Low 2.67 LAB HEMOGLOBIN(LOINC 13.0 - g/dl ) 17.5 Low HEMOGLOBIN 12.1 LAB HEMATOCRIT(LOINC 40.0 - % ) 52.0 Low HEMATOCRIT 33.7 LAB MCV(LOINC) 81 - 98 fl MCV High 126 LAB MCH(LOINC) 27 - 33 pg MCH High 45 LAB MCHC(LOINC) 32 - 36 X10 3 MCHC 36 LAB RDW/CV(LOINC) 12.0 - % 15.6 RDW/CV 14.4 LAB PLATELET(LOINC) 150 - 450 x10EE3/UL PLATELET 244 LAB MPV(LOINC) 6.4 - 10.5 fl MPV 7.8 Result Comment: AUTOMATED DIFFERENTIAL LAB NEUT %(LOINC) 46.0 - % 76.0 NEUT % 86.4 High LAB LYMPH %(LOINC) 20.0 - % Low 45.0 LYMPH % 10.2 LAB MONOS %(LOINC) 0.0 - 10.0 % MONOS % 2.8 LAB EO %(LOINC) 0.0 - 7.0 % EO % 0.2 LAB BASO %(LOINC) 0.0 - 2.0 % BASO % 0.4 LAB Lymph #(LOINC) 0.80 - x10EE3/ Low 2.80 UL Lymph # 0.60 LAB Neut #(LOINC) 1.50 - x10EE3/ 7.10 UL Neut # 5.40 LAB [place] #(LOINC) 0.20 - x10EE3/ 1.00 UL [place] # 0.20 LAB EO #(LOINC) 0.00 - x10EE3/ 0.50 UL EO # 0.00 LAB Baso #(LOINC) 0.00 - x10EE3/ 0.10 UL Baso # 0.00 LAB MANUAL DIFF(LOINC) MANUAL DIFF N/A LAB MORPHOLOGY(LOIN C) MORPHOLOGY REVIEWED Result Comment: {CD] FOLLOWING RESULTS REPORTED IN ERROR MORPHOLOGY N/A LAB ERROR DUE TO(LOINC) ERROR DUE TO REVIEW MORPH Performed By: #### [id number] #### [facility],[address] [place] [address] CMP WITH EGFR Collected: 04/04/2018 Status: F Source: [facility] 4:25 PM [facility] REPOSITORY TYPE CODE TESTS RESULT OUT OF RANGE REFERENCE UNITS LAB CMP with eGFR(LOINC) CMP with eGFR Result Comment: COMPREHENSIVE METABOLIC PANEL LAB SODIUM(LOINC) 136 - 145 mmol/l SODIUM 138 LAB POTASSIUM(LOINC) 3.5 - 5.1 mmol/L POTASSIUM 4.6 LAB CHLORIDE(LOINC) 98 - 107 mmol/L CHLORIDE 107 LAB CO2(LOINC) 21.0 - mmol/L 31.0 CO2 24.3 LAB GLUCOSE(LOINC) 74 - 106 mg/dl GLUCOSE High 108 LAB BUN(LOINC) 6 - 20 mg/dl BUN 17 LAB CREATININE(LOINC) 0.7 - 1.3 mg/dl CREATININE 1.0 LAB AST/SGOT(LOINC) 13 - 39 U/L AST/SGOT Low 10 LAB ALK PHOS(LOINC) 38 - 126 U/L ALK PHOS 55 LAB CALCIUM(LOINC) 8.6 - mg/dl 10.2 CALCIUM 9.1 LAB TOTAL 6.4 - 8.3 g/dl PROTEIN(LOINC) TOTAL Low PROTEIN 6.2 LAB ALBUMIN(LOINC) 3.4 - 4.8 g/dL ALBUMIN 4.3 LAB GLOBULIN(LOINC) 1.5 - 3.8 G/DL GLOBULIN 1.9 LAB A/G RATIO(LOINC) 0.9 - 1.6 A/G High RATIO 2.3 LAB TOTAL BILI(LOINC) 0.0 - 1.5 mg/dl TOTAL BILI 0.5 LAB B/C RATIO(LOINC) 0 - 30 ratio B/C RATIO 17 LAB ALT/SGPT(LOINC) 10 - 40 U/L ALT/SGPT 15 LAB ANION GAP(LOINC) 10 - 20 mmol/L ANION GAP 11 LAB AGE(LOINC) years AGE 38 LAB eGFR(LOINC) 60 - 999 ML/MINUTE eGFR >60 LAB eGFR(AA)(LOINC) 60 - 999 ML/MINUTE eGFR(AA) >60 Result Comment: ACCORDING TO THE NATIONAL KIDNEY DISEASE EDUCATION PROGRAM(NKDE), A NORMAL eGFR IS A VALUE GREATER THAN OR EQUAL TO 60 ML/MIN/1.73 SQ METERS. CHRONIC KIDNEY DISEASE: <60mL/MIN/1.73 SQ METERS KIDNEY FAILURE: <15mL/MIN/1.73 SQ METERS THIS TEST SHOULD ONLY BE USED FOR PATIENTS 18 YEARS OF AGE AND OLDER. Performed By: #### [id number] #### [place] [address] MR KNEE W/O LT Observed: 02/11/2018 Status: F Source: [facility] 6:03 PM [place] [address] Patient: TAN MICHAEL Phone#: : [phone] Age: 38 Gender: M Pt. Type: Out Account: [id number] Location: 052 Ordering: BONNY PEARSON Exam Date: 02/11/2018/17:05 Family Phys: NICA RauschVicky PEARSON Charge Code: [id number] Physician: Mingo Order #: [id number] DLP Dose#: PROCEDURE: MRI KNEE LT WITHOUT CONTRAST COMPARISON: None. INDICATIONS: Left knee pain TECHNIQUE: A complete multi-planar MRI was performed. FINDINGS: MEDIAL COMPARTMENT MEDIAL MENISCUS: Normal. No visible tear or significant degeneration. HYALINE CARTILAGE: Normal. No visible defect. BONES: Normal. No marrow pathology, fracture, or significant arthropathy. MCL AND MEDIAL CAPSULE: Abnormal signal is present in the proximal medial collateral ligament consistent with interstitial tear. There is edema superficial and deep to the ligament. The posterior fascicles are torn. There is mild abnormal signal in the tendon of the semitendinosus muscle near its capsular attachment consistent with interstitial tear. There is fluid present adjacent to the gastrocnemius muscle LATERAL COMPARTMENT LATERAL MENISCUS: Normal. No visible tear or significant degeneration. HYALINE CARTILAGE: Normal. No visible defect. BONES: Normal. No marrow pathology, fracture, or significant arthropathy. LCL/POSTEROLAT. COMPLEX: Abnormal signal is present at the insertion of the popliteus tendon consistent with tear. ACL: The ACL is thickened and abnormal in signal consistent with interstitial tear. PCL: Normal appearing ligament. MENISCOFEMORAL: Normal meniscofemoral ligaments. PATELLOFEMORAL: There is waviness of the medial patellofemoral retinaculum. Abnormal signal is present at the MCL attachment consistent with Continued Report - Page 2 of 2 Patient: TAN MICHAEL Phone#: : 1980 Age: 38 Gender: M Pt. Type: Out Account: [id number] Location: 052 Ordering: BONNY PEARSON Exam Date: 02/11/2018/17:05 Family Phys: NICA PEARSON Charge Code: [id number] Physician: Mingo Order #: [id number] DLP Dose#: tear. There is subluxation of the patella laterally. There is narrowing of the lateral patellofemoral joint space. EFFUSION: None. No synovitis or loose bodies. OTHER: Negative. CONCLUSION: 1. Interstitial tear of the ACL. 2. Interstitial tear of the proximal MCL. 3. Tear of the medial patellofemoral retinaculum at its MCL attachment. 4. Interstitial tear/strain of the semitendinosus tendon. 5. There is mild lateral subluxation of the patella. The lateral patellofemoral joint space is narrowed. Dictated by: Britney Galvan MD on 02/11/2018 at 18:50 Approved by: Britney Galvan MD on 02/11/2018 at 18:50 ONCOLOGY VISIT REPORT Observed: 02/03/2018 Status: F Source: [place] 1:43 PM [facility] REPOSITORY [facility] [place] [address] OFFICE VISIT Date of Service: 02/03/18 1324 MR#: [id number] Acct: [id number] Name: TAN MICHAEL Rep #: [id number] : 1980 From: Kathryn Cruz MD Age/Sex: 38/M Location: ONC Status: Signed - Problem List (1) Briana-Blackfan anemia Status: Chronic (2) Hemochromatosis associated with compound heterozygous mutation in HFE gene Status: Chronic (3) Iron overload due to repeated red blood cell transfusions Status: Chronic (4) Lymphopenia Status: Chronic (5) Steroid-induced osteopenia Status: Chronic - Date of Service Date of Service:: 02/03/18 - Chief Complaint Congenital anemia follow-up - History of Present Illness Patient is a 37-year-old male who is transferring care to [place] for proximity to residence. 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 His disease preapproved to be steroid responsive and dependent. He has been on prednisone since current dose being 20 mg daily titrated to a target hemoglobin of 12 g. Since diagnosis he has required less than a total of 10 units of packed red cell transfusions done last was in the early .. And he was diagnosed with iron overload and prescribed Exjade but that he has not taken the drug regularly and his total use been for less than 1 year intermittently. Around the same time he was diagnosed with steroid-induced bone loss and was prescribed calcium, vitamin D, and Fosamax. Lymphocytopenia has been noted the past as well as hypogammaglobulinemia. He has not suffered from any unusual or recurrent bacterial infections. On bactrim for PCP prophylaxis since 2017 and Fosamax for steroid induced bone loss. He reports that he suffered from chickenpox on more than one occasion, no shingles or other opportunistic infections. He was followed at the [facility] division of epidemiology and genetics as part of the study. 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 He already had a screening colonoscopy and an EGD( for GERD) Has a positive family history of colon cancer. There is believed that he inherited this illness from his mother who suffered from severe transfusion dependent anemia and has a son with the same diagnosis. Treatment: Prednisone Fosamax (2009s) Bactrim (2017) Exjade (noncompliant) PRBCs prn - Past Medical/Social History Past Medical History Past Medical History: Anemia,Arthritis,Blood transfusion,Depression, GERD,Headaches,Hereditary hemochromatosis, Osteopenia,Rheumatoid arthritis,Substance abuse, Fibromyalgia,Nausea,Fatigue,Constipation, Diarrhea Other Past Medical History: ACID REFLUX LUMBAR HERNIATED DISC HYPOTENSION FRACTURES Past Surgical History Surgical: Colonoscopy Other Surgical History: bone marrow procedure (3) Family History Paternal Past Medical History: Stroke Paternal History of Cancer Lung cancer,Pancreatic cancer Maternal Past Medical History: Anemia,Stroke Maternal History of Cancer: Lung cancer,Ovarian cancer Social History Social History: No changes Smoking Status Current every day smoker Review of Systems Constitutional:: Reports: Fatigue - Session, able to do ADL independently. Denies: Fever, Sweats, Weight loss, Appetite change, Chills Cardiovascular:: Denies: Chest pain, Palpitations, Dyspnea on exertion, Orthopnea, PND, Shortness of breath Respiratory: Denies: Cough, Hemoptysis, Shortness of Breath, Wheezing Gastrointestinal:: Denies: Abdominal pain, Nausea, Vomiting, Diarrhea, Constipation, Hematochezia Genitourinary: Denies: Dysuria, Hematuria, 15, Flank pain Musculoskeletal:: Reports: Arthritis, Arthralgia - Knees. Denies: Back pain, Myalgia Skin: Denies: Rash, Skin Changes, Wounds Neurological:: Denies: Headache, Dizziness, Visual changes, Tinnitus, Hearing loss Psychiatric: Denies: Anxiety, Depression, Homicidal Ideations, Suicidal Ideations Comment: Still to see the dentist in 2018 Vital Signs Height 6 ft Weight: 84.459 kg Weight in Pounds 186.2 lbs Pulse Ox 95 - Physical Exam General: Alert, Oriented x3, No apparent distress, - - Cushingoid ECOG 1 HEENT: Atraumatic, PERRLA, EOMI, Normocephalic Oropharynx:: Dry mucosa Neck:: Supple, Trachea midline. Negative for: JVD, bilateral Cardiac:: Regular rate, Regular rhythm, Normal S1, Normal S2. Negative for: Murmur Lungs: Clear to auscultation, Excusion symmetrical. Negative for: Rhonchi, Wheezes Abdomen:: Bowel sounds x 4, Soft, Non-tender, Non-distended. 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 Diagnosis was made at age 18 months, steroid responsive but dependent, total packed red blood cell transfusions less than 10 since diagnosis. Patient is currently on prednisone 20 mg alternating with 10 daily and the target hemoglobin 10- 12 g/DL. Current dose 20 mg every morning and will monitor monthly and adjust dose as needed to achieve target was lowest prednisone dose possible. 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 Patient has been on and off iron chelation therapy with Exjade (mostly not taking therapy). He appears to have a mild asymptomatic iron overload with a serum ferritin of less than 1000 and no evidence for end organ damage. Due to his underlying bone marrow disease he would not be able to tolerate phlebotomy protocol. Therefore I advised monitoring of his hemochromatosis status and if there is progressive rise in his iron overload will have to resume iron chelation therapy. treatment of homozygous hereditary hemochromatosis: Asymptomatic HH and ferritins <500 are at low risk for developing HH-related signs and symptoms in the future. Such patients need only yearly examination along with determination of the serum iron, ferritin, and transferrin saturation. Symptomatic patients and/or those with end-organ damage (ie, liver, endocrine organs, heart) require treatment to remove excess iron stores. As initial treatment in symptomatic patients with HH and those with progressively increasing levels of serum ferritin and/or transferrin saturation , recommend weekly or every other week phlebotomy. Chelation therapy to remove accumulated iron is indicated only if the patient is unable to tolerate phlebotomy therapy until the patient shows evidence for a reduction in iron stores, as evidenced by a ferritin concentration in the range of 50 to 100 ng/mL. It is reasonable to limit the intake of ethanol, avoid taking iron or vitamin C supplements, and avoid ingestion of uncooked seafood. Screening of first degree family members of the affected patient. Patients with HH and cirrhosis are at risk for, and need to be screened for, hepatocellular carcinoma (AFP/6M, U/S Liver/6-12M). 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 His bone density of 2017 shows osteopenia and on review of his medications list he admitted that he forgets Fosamax as often as once every other week and therefore advice switching to IV Zometa or subcu Xgeva every 6 months to improve compliance. 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 Has started on Bactrim for PCP prophylaxis in late 2017. Patient may receive killed virus vaccines but no live virus vaccines. 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 Will need cancer screening, for prostate at age 46. He already had a colonoscopy due to some GI problems and positive family history of colon cancer. Impression and recommendations were discussed with patient. Follow-up with monthly CBC and a formal visit in 3 months. Medications: Prescriptions This Visit Medication Instructions Recorded Alendronate Sodium [Fosamax] 70 mg PO QWEEK 05/29/17 Primary Care Provider: Bonny Pearson MD Referring Provider: Kathryn Cruz MD 02/03/18 2554 <Electronically signed by Kathryn Cruz MD> Date Kathryn Cruz MD Cosigner Signature: Date (if applicable) CC: CBC W/DIFF, AUTOMATED Collected: 02/03/2018 Status: F Source: [place] 1:05 PM [facility] REPOSITORY Order Comment: Reason for Laboratory Test ROUTINE TYPE CODE TESTS RESULT OUT OF RANGE REFERENCE UNITS LAB L100.1000 4.4-11.0 K/mm3 Normal WBC 6.8 LAB L100.1200 4.6-6.2 M/mm3 Low RBC 2.67 LAB L100.1300 13.0-16.5 g/dl Low HGB 11.5 LAB L100.1400 40-54 % Low HCT 34.7 LAB L100.1500 80-94 fL High MCV 130.0 LAB L100.1600 27.0-32.0 pg High MCH 43.1 LAB L100.1700 32-36 g/gl Normal MCHC 33.1 LAB L100.1810 11.6-14.6 % Normal RDW CV 14.0 LAB L100.1820 35.1-43.9 fl High RDW SD 65.6 LAB L100.1900 150-450 K/mm3 Normal PLT 242 LAB L100.2000 6.2-12.0 fl Normal MPV 9.0 LAB L100.2100 47-70 % Normal NEUT% 53.5 LAB L100.2200 19-41 % Normal LY% 37.7 LAB L100.2300 0-10 % Normal MONO% 6.0 LAB L100.2400 0-5 % Normal EO% 1.9 LAB L100.2500 0-1 % Normal BASO% 0.3 LAB L100.2550 0.0-0.9 % Normal IM GRAN % 0.600 Result Comment: IG% - Immature Granulocytes (promyelocytes, myelocytes and metamyelocytes) > 1% indicates that a LEFT SHIFT is Present. LAB L100.2620 2.0-7.7 X10 3/uL Normal Absolute Neut 3.6 LAB L100.2720 0.83-4.51 X10 3/ul Normal Absolute Lymph 2.56 LAB L100.7300 ANISO Normal 1+ Performed By: #### L100.0100 #### [facility] [address] [place], [address] EMERGENCY REPORT Observed: 01/24/2018 Status: F Source: [place] 9:03 AM [facility] EMERGENCY ROOM REPORT NAME ACCOUNT SEX AGE ADMIT DISCHARGE PT MED. RECORD# NUMBER DATE DATE TYPE TAN MICHAEL [id number] Yoav 37 01/22/18 01/22/18 3 [id number] ROOM: ER DATE OF : 1980 DICTATING PHYSICIAN: Butch Valencia ADDENDUM DIAGNOSTIC DATA: X-rays obtained of the left knee were negative for fracture or dislocation. EMERGENCY DEPARTMENT COURSE AND TREATMENT: The patient was placed in a left knee immobilizer and crutches. He was advised to weightbear but only as tolerated and then to follow up with his family doctor, Dr. Nica Pearson, in [place] in 3 to 5 days for reevaluation. I did review the findings on the x-ray with him and his , and they did verbalize understanding. He is asking for something for pain, so I will place him on ibuprofen 800 mg one p.o. t.i.d. with food; dispense #20 with no refill. The patient was discharged in clinically stable condition. Nurse's notes were reviewed. DIAGNOSIS: Left knee sprain. Dictated By: Butch Valencia DO 01/22/18 15:05 JOB #: [id number] Transcribed By: reynold 01/23/18 11:25 Electronically signed by: E-Sign: Dr. Butch Valencia D.O. 01/24/18 09:03 Page 1 of 1 TAN MICHAEL Emergency Room Report EMERGENCY REPORT Observed: 01/24/2018 Status: F Source: [place] 9:03 AM [facility] EMERGENCY ROOM REPORT NAME ACCOUNT SEX AGE ADMIT DISCHARGE PT MED. RECORD# NUMBER DATE DATE TYPE TAN MICHAEL [id number] Yoav 37 01/22/18 01/22/18 3 [id number] ROOM: ER DATE OF : 1980 DICTATING PHYSICIAN: Butch Valencia TIME SEEN: 1:41 p.m. HISTORY OF PRESENT ILLNESS: This is a 37-year-old white male complaining of pain and swelling to the lateral aspect of his left knee for the past 4 weeks. The pain started when he suffered an injury 4 weeks ago. He was stepping out of a van when he slipped on the ice. He started to fall but then caught himself, but he did twist that left knee. He has been having pain along the lateral aspect of that left knee ever since. He states the pain is getting worse. Now, the pain is worse with weightbearing, and last night the pain woke him up in the middle of the night. He is concerned about a fracture because he does have a history of osteoporosis. 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 He presently rates the pain as a 5 on a severity scale of 1-10. He describes it as sharp in nature. The pain is worse with movement and weightbearing. He denies any associated numbness or tingling. PAST MEDICAL HISTORY: Osteoporosis, anemia, and gastroesophageal reflux disease. PAST SURGICAL HISTORY: He denies any past surgeries. ALLERGIES: No known drug allergies. SOCIAL HISTORY: The patient is a smoker of half a pack per day. He denies the use of alcohol. He lives at home with his spouse. REVIEW OF SYSTEMS: He denies any chest pain, shortness of breath, cough, sputum, wheezing, abdominal pain, nausea, vomiting, diarrhea, constipation, melena, hematochezia, headache, numbness, unsteady gait, weakness, or neck or back pain. He does complain of joint pain and swelling. Further review of systems is negative. PHYSICAL EXAMINATION: The patient is alert and oriented x3. He appears in some mild distress secondary to left knee pain, but he is pleasant and cooperative. HEENT: Head appears atraumatic. Pupils are equal and reactive to light. Red reflexes are intact bilaterally. Extraocular muscles are intact. No conjunctival injection. No scleral icterus or lid edema. No posterior cervical tenderness. Lungs are clear to auscultation in all lung schumacher. No adventitious sounds are noted. No accessory muscle use. CV: Heart rate and rhythm are regular without murmur. Abdomen is soft and nontender with normoactive bowel sounds x4 quadrants. No guarding or rigidity. No rebound. No palpable Page 1 of 2 TAN MICHAEL Emergency Room Report abdominal masses. No hepatosplenomegaly. Back exhibits no midline or paraspinal region tenderness. No increased paraspinal muscle rigidity. Negative Reji's sign. Extremities: I do note some very focal and exquisite tenderness over the lateral aspect of the left knee, particularly around the fibular head region. There is some associated swelling there but no ecchymosis. He does have good range of motion of the left knee, although the range of motion is decreased somewhat due to pain with movement, but I note no crepitus. No joint effusion. He does have a good left dorsalis pedis pulse, and he has good sensation to light touch to all digits of the left foot. Capillary refill is less than 2 seconds. No redness. No warmth over the area of pain. No ecchymosis. Neurologic examination shows the patient to be alert and oriented x4. No motor or sensory deficits are noted. Normal speech. Skin is warm and dry. No diaphoresis or rash. The patient is pleasant and cooperative with a normal affect. EMERGENCY DEPARTMENT COURSE AND TREATMENT: Presently, we will obtain x-rays of the left knee and then reevaluate. Dictated By: Butch Valencia DO 01/22/18 14:09 JOB #: [id number] Transcribed By: reynold 01/23/18 08:40 Electronically signed by: E-Sign: Dr. Butch Valencia D.O. 01/24/18 09:02 Page 2 of 2 TAN MICHAEL Emergency Room Report KNEE COMPLETE LT MIN Observed: 01/22/2018 Status: F Source: [place] [id number] VIEWS 2:16 PM [place] [address] Patient: TAN MICHAEL. Phone#: : [phone] Age: 37 Gender: M Pt. Type: ER Account: [id number] Location: 05 Ordering: BUTCH VALENCIA Exam Date: 01/22/2018/14:02 Family Phys: NICA PEARSON Charge Code: 688863 Physician: [place] Order #: [id number] DLP Dose#: PROCEDURE: X-RAY KNEE LT COMPLETE 4 VIEWS COMPARISON: None. INDICATIONS: Pain FINDINGS: BONES: Normal. No significant arthropathy or acute abnormality. SOFT TISSUES: Negative. No visible soft tissue swelling. EFFUSION: None visible. OTHER: Negative. CONCLUSION: No acute disease. Dictated by: Britney Galvan MD on 01/22/2018 at 14:21 Approved by: Britney Galvan MD on 01/22/2018 at 14:21 CBC W/DIFF, AUTOMATED Collected: 01/09/2018 Status: F Source: [place] 2:21 PM [facility] REPOSITORY Order Comment: Reason for Laboratory Test ROUTINE TYPE CODE TESTS RESULT OUT OF RANGE REFERENCE UNITS LAB L100.1000 4.4-11.0 K/mm3 Normal WBC 5.2 LAB L100.1200 4.6-6.2 M/mm3 Low RBC 2.70 LAB L100.1300 13.0-16.5 g/dl Low HGB 11.8 LAB L100.1400 40-54 % Low HCT 35.5 LAB L100.1500 80-94 fL High MCV 131.5 LAB L100.1600 27.0-32.0 pg High MCH 43.7 LAB L100.1700 32-36 g/gl Normal MCHC 33.2 LAB L100.1810 11.6-14.6 % Normal RDW CV 14.1 LAB L100.1820 35.1-43.9 fl High RDW SD 67.2 LAB L100.1900 150-450 K/mm3 Normal PLT 216 LAB L100.2000 6.2-12.0 fl Normal MPV 8.9 LAB L100.2100 47-70 % Normal NEUT% 67.0 LAB L100.2200 19-41 % Normal LY% 25.0 LAB L100.2300 0-10 % Normal MONO% 6.0 LAB L100.2400 0-5 % Normal EO% 1.4 LAB L100.2500 0-1 % Normal BASO% 0.4 LAB L100.2550 0.0-0.9 % Normal IM GRAN % 0.200 Result Comment: IG% - Immature Granulocytes (promyelocytes, myelocytes and metamyelocytes) > 1% indicates that a LEFT SHIFT is Present. LAB L100.2620 2.0-7.7 X10 3/uL Normal Absolute Neut 3.5 LAB L100.2720 0.83-4.51 X10 3/ul Normal Absolute Lymph 1.29 LAB L100.7800 Normal MACROCYTE 2+ Performed By: #### L100.0100 #### [facility] [address] [place], [address] CMP WITH EGFR Collected: 12/17/2017 Status: F Source: [place] 2:12 PM [facility] REPOSITORY TYPE CODE TESTS RESULT OUT OF RANGE REFERENCE UNITS LAB CMP with eGFR(LOINC) CMP with eGFR Result Comment: COMPREHENSIVE METABOLIC PANEL LAB SODIUM(LOINC) 136 - 145 mmol/l SODIUM 138 LAB POTASSIUM(LOINC) 3.5 - 5.1 mmol/L POTASSIUM 4.0 LAB CHLORIDE(LOINC) 98 - 107 mmol/L CHLORIDE 103 LAB CO2(LOINC) 21.0 - mmol/L 31.0 CO2 26.4 LAB GLUCOSE(LOINC) 74 - 106 mg/dl GLUCOSE 85 LAB BUN(LOINC) 6 - 20 mg/dl BUN 18 LAB CREATININE(LOINC) 0.7 - 1.3 mg/dl CREATININE 1.1 LAB AST/SGOT(LOINC) 13 - 39 U/L AST/SGOT Low 10 LAB ALK PHOS(LOINC) 38 - 126 U/L ALK PHOS 78 LAB CALCIUM(LOINC) 8.6 - mg/dl 10.2 CALCIUM 8.9 LAB TOTAL 6.4 - 8.3 g/dl PROTEIN(LOINC) TOTAL Low PROTEIN 6.2 LAB ALBUMIN(LOINC) 3.4 - 4.8 g/dL ALBUMIN 4.4 LAB GLOBULIN(LOINC) 1.5 - 3.8 G/DL GLOBULIN 1.8 LAB A/G RATIO(LOINC) 0.9 - 1.6 A/G High RATIO 2.4 LAB TOTAL BILI(LOINC) 0.0 - 1.5 mg/dl TOTAL BILI 0.4 LAB B/C RATIO(LOINC) 0 - 30 ratio B/C RATIO 16 LAB ALT/SGPT(LOINC) 10 - 40 U/L ALT/SGPT 12 LAB ANION GAP(LOINC) 10 - 20 mmol/L ANION GAP 13 LAB AGE(LOINC) years AGE 37 LAB eGFR(LOINC) 60 - 999 ML/MINUTE eGFR >60 LAB eGFR(AA)(LOINC) 60 - 999 ML/MINUTE eGFR(AA) >60 Result Comment: ACCORDING TO THE NATIONAL KIDNEY DISEASE EDUCATION PROGRAM(NKDE), A NORMAL eGFR IS A VALUE GREATER THAN OR EQUAL TO 60 ML/MIN/1.73 SQ METERS. CHRONIC KIDNEY DISEASE: <60mL/MIN/1.73 SQ METERS KIDNEY FAILURE: <15mL/MIN/1.73 SQ METERS THIS TEST SHOULD ONLY BE USED FOR PATIENTS 18 YEARS OF AGE AND OLDER. Performed By: #### [id number] #### [facility],[address] [place], [place] [id number] CBC Collected: 12/17/2017 Status: F Source: [place] 2:12 PM [facility] REPOSITORY TYPE CODE TESTS RESULT OUT OF RANGE REFERENCE UNITS LAB CBC(LOINC) CBC Result Comment: CBC-COMPLETE BLOOD COUNT LAB WBC(LOINC) 4.5 - 10.8 x 10EE3/UL WBC 7.5 LAB RBC(LOINC) 4.50 - x 10EE6/UL 6.00 RBC Low 2.51 LAB HEMOGLOBIN(LOINC 13.0 - g/dl ) 17.5 Low HEMOGLOBIN 11.6 LAB HEMATOCRIT(LOINC 40.0 - % ) 52.0 Low HEMATOCRIT 33.5 LAB MCV(LOINC) 81 - 98 fl MCV High 133 LAB MCH(LOINC) 27 - 33 pg MCH High 46 LAB MCHC(LOINC) 32 - 36 X10 3 MCHC 35 LAB RDW/CV(LOINC) 12.0 - % 15.6 RDW/CV 15.1 LAB PLATELET(LOINC) 150 - 450 x10EE3/UL PLATELET 300 LAB MPV(LOINC) 6.4 - 10.5 fl MPV 8.1 Result Comment: AUTOMATED DIFFERENTIAL LAB NEUT %(LOINC) 46.0 - % Low 76.0 NEUT % 44.8 LAB LYMPH %(LOINC) 20.0 - % 45.0 LYMPH % 42.1 LAB MONOS %(LOINC) 0.0 - 10.0 % MONOS % 11.1 High LAB EO %(LOINC) 0.0 - 7.0 % EO % 1.7 LAB BASO %(LOINC) 0.0 - 2.0 % BASO % 0.3 LAB Lymph #(LOINC) 0.80 - x10EE3/ 2.80 UL Lymph # 3.20 High LAB Neut #(LOINC) 1.50 - x10EE3/ 7.10 UL Neut # 3.40 LAB [place] #(LOINC) 0.20 - x10EE3/ 1.00 UL [place] # 0.80 LAB EO #(LOINC) 0.00 - x10EE3/ 0.50 UL EO # 0.10 LAB Baso #(LOINC) 0.00 - x10EE3/ 0.10 UL Baso # 0.00 LAB MANUAL DIFF(LOINC) MANUAL DIFF N/A LAB MORPHOLOGY(LOIN C) MORPHOLOGY REVIEWED Result Comment: {CD] Performed By: #### [id number] #### [facility],[address] [facility] [address] RIBS UNI MIN 3V Observed: 12/04/2017 Status: F Source: [place] W/PA CHEST 9:21 AM [facility] REPOSITORY [facility] Services [address] [place] [address] Ribs Uni Min 3V w/PA Chest MR#: [id number] Acct: [id number] Name: TAN MICHAEL Rep #: [id number] : 1980 M 37 From: Bridger Brar MD PCP: Nica Pearson DO Status: REG CLI Study: Ribs Uni Min 3V w/PA Chest Date of Exam: 12/04/17 Exam# [id number] Ordering Dr: Nica Pearson DO STUDY: X-RAY - UNILATERAL RIBS ( RIGHT ) WITH CHEST REASON FOR EXAM: Male, 37 years old. Right lower rib pain. TECHNIQUE - RIBS: 4 view(s) of the ribs. TECHNIQUE - CHEST: Single frontal view of the chest. COMPARISON: 07/18/2017. FINDINGS - RIBS: Stable multiple old bilateral rib fractures. There is one of the right lateral ninth rib which appears subacute but in fact was present on previous study. FINDINGS - CHEST: The lungs are clear and expanded. There is no demonstrated pleural abnormality. Normal size heart. Normal mediastinum and keny. Normal visualized pulmonary arteries. Normal visualized aortic arch and descending thoracic aorta. Normal visualized thoracic spine. Several stable old bilateral rib fractures. There is no demonstrated abnormality of the visualized soft tissue structures of the upper abdomen. RAD/Ribs Uni Min 3V w/PA Chest IMPRESSION: RIBS: Stable multiple old bilateral rib fractures. CHEST: No acute chest disease. Electronically Signed: Bridger Brar MD at 8:38 EDT , Service support , CC: Nica Pearson DO Rn Research: Signed CBC W/DIFF, AUTOMATED Collected: 12/02/2017 Status: F Source: [place] 1:22 PM [facility] REPOSITORY Order Comment: Reason for Laboratory Test ROUTINE TYPE CODE TESTS RESULT OUT OF RANGE REFERENCE UNITS LAB L100.1000 4.4-11.0 K/mm3 Normal WBC 5.6 LAB L100.1200 4.6-6.2 M/mm3 Low RBC 2.37 LAB L100.1300 13.0-16.5 g/dl Low HGB 10.5 LAB L100.1400 40-54 % Low HCT 31.7 LAB L100.1500 80-94 fL High MCV 133.8 LAB L100.1600 27.0-32.0 pg High MCH 44.3 LAB L100.1700 32-36 g/gl Normal MCHC 33.1 LAB L100.1810 11.6-14.6 % High RDW CV 14.8 LAB L100.1820 35.1-43.9 fl High RDW SD 71.7 LAB L100.1900 150-450 K/mm3 Normal PLT 238 LAB L100.2000 6.2-12.0 fl Normal MPV 8.9 LAB L100.2100 47-70 % Low NEUT% 45.3 LAB L100.2200 19-41 % High LY% 45.7 LAB L100.2300 0-10 % Normal MONO% 6.5 LAB L100.2400 0-5 % Normal EO% 1.8 LAB L100.2500 0-1 % Normal BASO% 0.5 LAB L100.2550 0.0-0.9 % Normal IM GRAN % 0.200 Result Comment: IG% - Immature Granulocytes (promyelocytes, myelocytes and metamyelocytes) > 1% indicates that a LEFT SHIFT is Present. LAB L100.2620 2.0-7.7 X10 3/uL Normal Absolute Neut 2.5 LAB L100.2720 0.83-4.51 X10 3/ul Normal Absolute Lymph 2.54 LAB L100.5500 ADEQ PLT Normal EST ADEQUATE LAB L100.7300 ANISO 1+ Normal LAB L100.7800 2+ Normal MACROCYTE Performed By: #### L100.0100 #### [facility] [address] [place], [address] CBC W/DIFF, AUTOMATED Collected: 10/25/2017 Status: F Source: [place] 2:59 PM [facility] REPOSITORY Order Comment: Reason for Laboratory Test OV CC: FABIO DACOSTA CUSTOMER RELATIONS ASSISTANT TYPE CODE TESTS RESULT OUT OF RANGE REFERENCE UNITS LAB L100.1000 4.4-11.0 K/mm3 Normal WBC 6.3 LAB L100.1200 4.6-6.2 M/mm3 Low RBC 2.01 LAB L100.1300 13.0-16.5 g/dl Low HGB 8.7 LAB L100.1400 40-54 % Low HCT 26.3 LAB L100.1500 80-94 fL High MCV 130.8 LAB L100.1600 27.0-32.0 pg High MCH 43.3 LAB L100.1700 32-36 g/gl Normal MCHC 33.1 LAB L100.1810 11.6-14.6 % High RDW CV 15.3 LAB L100.1820 35.1-43.9 fl High RDW SD 73.1 LAB L100.1900 150-450 K/mm3 Normal PLT 297 LAB L100.2000 6.2-12.0 fl Normal MPV 9.5 LAB L100.2100 47-70 % Low NEUT% 41.3 LAB L100.2200 19-41 % High LY% 45.5 LAB L100.2300 0-10 % Normal MONO% 10.0 LAB L100.2400 0-5 % Normal EO% 2.4 LAB L100.2500 0-1 % Normal BASO% 0.5 LAB L100.2550 0.0-0.9 % Normal IM GRAN % 0.300 Result Comment: IG% - Immature Granulocytes (promyelocytes, myelocytes and metamyelocytes) > 1% indicates that a LEFT SHIFT is Present. LAB L100.2620 2.0-7.7 X10 3/uL Normal Absolute Neut 2.6 LAB L100.2720 0.83-4.51 X10 3/ul Normal Absolute Lymph 2.85 LAB L100.5500 ADEQ PLT Normal EST ADEQUATE LAB L100.7300 ANISO 2+ Normal LAB L100.7800 2+ Normal MACROCYTE LAB L100.8200 Normal OVALOCYTE RARE LAB L100.8600 Normal TARGET CELLS RARE LAB L100.9900 PATH Normal REV Reviewed Result Comment: Macrocytic anemia. Aj Sandra M.D. 10/28/17 AMENDED REPORT 10/28/17 1503 PATH REV previously reported as: January Performed By: #### L100.0100 #### [facility] [address] [place], [address] PTHIN Collected: 10/25/2017 Status: F Source: [place] 2:59 PM [facility] REPOSITORY Order Comment: Order Date: 08/08/17 Order Info: [id number] - *PTH (Parathyroid Hormone) Comments: Reason: CC: DR KATHRYN CRUZ TYPE CODE TESTS RESULT OUT OF RANGE REFERENCE UNITS LAB L509.1000 18.4-80.1 pg/mL Normal PTHIN 77.1 Result Comment: Please Note: PTH INTACT METHOD AND REFERENCE RANGE CHANGE Effective 09/11/2017. Performed By: #### L509.1000 #### [facility] [address] [place], [address] COMPREHENSIVE METABOLIC Collected: 10/25/2017 Status: F Source: [place] PROFIL 2:59 PM [facility] REPOSITORY Order Comment: Order Date: 08/08/17 Order Info: [id number] - *CMP Complete Metabolic Panel Order Info: [id number] - *Calcium, Total Reason for Laboratory Test OV CC: DR KATHRYN CRUZ TYPE CODE TESTS RESULT OUT OF RANGE REFERENCE UNITS LAB L501.0100 74-106 mg/dL Normal GLU 91 LAB L501.1000 7-18 mg/dL Normal BUN 16 LAB L501.1100 0.70-1.30 mg/dL Normal 0.91 CREAT,SERUM Result Comment: The validity of the calculated GFR AND GFRAA in patients over 70 years has not been determined. Clinical correlation is essential. LAB L501.1110 >60 mL/min Normal EST GFR 100 Result Comment: Non- GFR Calc LAB L501.1115 >60 mL/min Normal EST GFR - AA 121 Result Comment: GFR Calc LAB L501.1300 10-20 RATIO Normal BUN/CRE 17.6 LAB L501.1500 6.4-8.2 g/dL T Normal PROT 6.4 LAB L501.1800 3.2-5.0 g/dL Normal ALB 3.8 LAB L501.1950 2.2-4.2 g/dL Normal GLOB 2.6 LAB L501.2000 0.9-2.4 RATIO Normal A/G 1.5 LAB L501.2200 8.5-10.1 mg/dL Low CA 8.1 LAB L501.4100 15-37 U/L Low AST 11 LAB L501.4305 45-117 U/L Normal ALK P 82 LAB L501.4405 16-61 U/L Normal ALT 27 Result Comment: Please note revised ALT reference range effective 2017. LAB L501.4600 0.20-1.00 mg/dL Normal T BILI 0.20 LAB L501.5300 136-145 mmol/L Normal NA 143 LAB L501.5600 3.5-5.1 mmol/L Normal K 3.8 LAB L501.5900 98-107 mmol/L High CL 109 LAB L501.6100 21.0-32.0 mmol/L Normal CO2 27.0 LAB L501.6200 5-15 Normal GAP 7 Performed By: #### L500.4050 #### [facility] [address] [facility] [place], [address] IRON+IRON BINDING Collected: 10/25/2017 Status: F Source: [place] CAPACITY 2:59 PM [facility] REPOSITORY Order Comment: Order Date: 08/08/17 Order Info: [id number] - *CMP Complete Metabolic Panel Order Info: [id number] - *Calcium, Total Reason for Laboratory Test OV CC: DR KATHRYN CRUZ TYPE CODE TESTS RESULT OUT OF REFERENCE UNITS RANGE LAB L503.6075 250-450 ug/dL Low TIBC 238 LAB L503.6150 65-175 ug/dL IRON High 180 LAB L503.6250 15.0-55.0 % IRON High SATURATION 75.6 Performed By: #### L503.6030, L503.6550 #### [facility] [address] [place], [address] FERRITIN Collected: 10/25/2017 Status: F Source: [place] 2:59 PM [facility] REPOSITORY Order Comment: Order Date: 08/08/17 Order Info: [id number] - *CMP Complete Metabolic Panel Order Info: [id number] - *Calcium, Total Reason for Laboratory Test OV CC: DR KATHRYN CRUZ TYPE CODE TESTS RESULT OUT OF REFERENCE UNITS RANGE LAB L503.6550 26-388 ng/mL High FERRITIN 719 Performed By: #### L503.6030, L503.6550 #### [facility] [address] [place], [address] VITAMIN D 1,25-DIHYDROXY Collected: 10/25/2017 Status: F Source: [place] 2:59 PM [facility] REPOSITORY Order Comment: Order Date: 08/08/17 Order Info: [id number] - *[id number] Vitamin D, 1, 25- DiHydroxy CC: DR KATHRYN CRUZ TYPE CODE TESTS RESULT OUT OF RANGE REFERENCE UNITS LAB L3300.0960 19.9-79.3 pg/mL Normal VITD 1,25 56.4 91116 Result Comment: Performed at: [facility] [id number] Print Controller: Osbaldo Andrade MD, Phone: [phone] Performed By: #### [id number] #### [facility] (refer to report for specific site) refer to report for address and phone number ALLERGIES ALLERGIES DATE TYPE / CODE NAME / CODE REACTION SEVERITY SOURCE 08/04/2018 Drug No Known Unknown [place] Allergy/470591656(S Allergies/F0019 [facility] [place] [address](RXNORM[place] Hospital Repository Miscellaneous No Known Drug Moderate Alfred [place] Allergy/589888809(S Allergies ([facility]) Modifier) [facility] (Qualifier Repository Value) ENCOUNTERS ENCOUNTERS ADMIT/DISCHARGE ACCOUNT ADMITTING ENCOUNTER LOCATION SOURCE NUMBER CLASS 09/09/2018 [id number] Ambulatory [address] ing:BFHLAB Repository 08/27/2018/ [id number] [facility], Ambulatory Alfred [place] 8 [facility] Repository 08/04/2018 [id number] Ambulatory [place] Katya 3 [facility] ing:OMD Repository 08/04/2018 [id number] Ambulatory BMSBuilding:B Katya 3 [facility] Repository 07/25/2018 [id number] Ambulatory Katya Katya 1 [facility] ing:MTRAD Repository 07/22/2018 [id number] Ambulatory Katya [place] 7 [facility] ing:MTLAB Repository 05/05/2018 [id number] Ambulatory BMSBuilding:B Katya 5 [facility] Repository 04/28/2018 [id number] Ambulatory [place] Katya 7 [facility] ing:US Repository 04/04/2018/ [id number] CORNELIUS, Ambulatory Alfred [place] 8 [facility] Repository 03/17/2018/ [id number] JOHN, Ambulatory Alfred [place] 8 [facility] Repository 02/11/2018/ [id number] [facility], Ambulatory Alfred [place] 8 [facility] Repository 02/03/2018 [id number] Ambulatory BMSBuilding:B [place] 7 [facility] Repository 01/22/2018/ [id number] BUTCH VALENCIA Emergency [facility] [place] [address] 8 DO oom: ERBed: Raymon [facility] Repository 12/17/[id number] [place] 8 [facility] Repository 12/04/2017 [id number] Ambulatory Katya Katya 6 [facility] ing:MTRAD Repository 11/04/2017 [id number] Ambulatory BMSBuilding:B [place] 0 [facility] Repository 10/25/2017 [id number] Ambulatory Katya [place] 2 [facility] ing:BFHLAB Repository PAYERS PAYERS ENCOUNTER GUARANTOR PAYER SUBSCRIBER SOURCE 09/09/2018 TAN MICHAEL Primary BROOKE Aldana [id number] SR Insurance:ANTHEMPolicy CRAFTDOB: Community [address] [place] [address], Number: [id number] [address]Ulq: [id number] Repository ve Date:5091-26-05Mi () [address], [place] [address]SH: 09/09/2018 Secondary NOT GIVENUNK Katya Insurance:SELF PAY [facility] Number: Effective Repository Date:2018-09-09 08/27/2018 TAN Shalom [facility] BROOKE Whitney CRAFTDOB: Insurance:ANTH EMMIE CRAFTDOB: [facility] [employer]OSS [employer]ERCIAL [id number] Repository [address] [place] [address], Number: [address] [place] [address] [id number] [place] [id number]: ve Date:Plan Name:B2 () 08/04/2018 TAN A SAADFELIPE [facility] BROOKE Yoav [place] [id number] SR Insurance:ANTHEMPolicy CRAFTDOB: [address], Number: [id number] [address]Ieb: [id number] Repository ve Date:7378-10-73Bh () [address], [place] [address]GP: 08/04/2018 Secondary NOT GIVENUNK Katya Insurance:SELF PAY [facility] Number: Effective Repository Date:2017-06-10 08/04/2018 TAN Rausch SAADFELIPE [facility] BROOKE Cason Katya [id number] SR Insurance:ANTHEMPolicy CRAFTDOB: [address], Number: [id number] [place] [address]Unk: [id number] Repository ve Date:1565-77-61Rj () [address] [address]DW: 08/04/2018 Secondary NOT GIVENUNK [place] Insurance:SELF PAY [facility] Number: Effective Repository Date:2018-08-04 07/25/2018 Tan Michael [facility] BROOKE Aldana [id number] Sr Insurance:ANTHEMPolicy CRAFTDOB: [address], Number: [id number]-Canonc[facility] [address]Lnu: [id number] Repository ve Date:3577-26-10Fp () [address], [place] [address]UD: 07/25/2018 Secondary NOT GIVENUNK [place] Insurance:SELF PAY [facility] Number: Effective Repository Date:2018-07-25 07/22/2018 Tan Michael [facility] BROOKE Aldana [id number] Sr Insurance:ANTHEMPolicy CRAFTDOB: [address], Number: [id number]-Canoncito-Lag[facility] [address]Rqb: [id number] Repository ve Date:6814-46-26Uf () [address], [place] [address]DI: 07/22/2018 Secondary NOT GIVENUNK Katya Insurance:SELF PAY [facility] Number: Effective Repository Date:2018-07-22 05/05/2018 Tan Michael [facility] BROOKE Aldana [id number] Sr Insurance:ANTHEMPolicy CRAFTDOB: [address], Number: [id number]-Canoncito-Lag[facility] [address]Gqg: [id number] Repository ve Date:7886-66-28Df () [address], [place] [address]UJ: 05/05/2018 Secondary NOT GIVENUNK Katya Insurance:SELF PAY [facility] Number: Effective Repository Date:2018-05-05 04/28/2018 Tan Michael [facility] BROOKE Aldana [id number] Sr Insurance:ANTHEMPolicy CRAFTDOB: [address], Number: [id number]-Canoncito-Lag[facility] [address]Eqg: [id number] Repository ve Date:9550-54-26Fu () [address], [place] [address]IV: 04/28/2018 Secondary NOT GIVENUNK [place] Insurance:SELF PAY [facility] Number: Effective Repository Date:2018-02-03 04/04/2018 TAN Rausch Rita BROOKE Whitney CRAFTDOB: Insurance:DEVEN OLEA CRAFTDOB: [facility] [id number] [place], [place] [address]E Repository [address] [place] [address], Number: [address] [place] [address] [id number] [place] [id number]: ve Date:Plan Name:B2 () 03/17/2018 TAN Whitney SAADFTDOB: Insurance:DEVEN BLUE CRAFTDOB: [facility] [id number] [place] [address], Number: [address] [place] [address] [id number] [place] [id number]: ve Date:Plan Name:B2 () 02/11/2018 TAN A Primary Shalom Yoav MICHAELDOB: Alfredmonica Whitney CRAFTDOB: Insurance:DEVEN OLEA [id number] [facility] [address], Repository [address] [place] [address], [place]: [place] [id number] Ne [id number]: ve Date:Plan Name:B2 () 02/03/2018 Tan A Alec Aldana [id number] Insurance:ANTHEMPolicy CraftDOB: [address], Number: [id number]-Canoncito-Lag[facility] Hospital [address]Brw: [id number] Repository ve Date:2385-15-34Pf () [address], [place] [address]VN: 02/03/2018 Secondary NOT GIVENUNK Katya Insurance:SELF PAY [facility] Number: Effective Repository Date:2018-02-03 01/22/2018 TAN MICHAELDOB: Insurance:CARRIJOSE RAUL EMMIE CRAFTDOB: [facility] [id number] Hospital SR OUTPAT[address], Number: [address] [place] [address] [id number] [place] [phone] [id number]: ve Date:Plan Name: () 12/17/2017 TAN MICHAELDOB: Alfred MICHAELDOB: Insurance:DEVEN OLEA [id number] [facility] [address], Repository [address] [place] [address], [place]: [place] [id number] Ne [id number]: ve Date:Plan Name: () 12/04/2017 Tan Cox [place] [id number] Insurance:ANTHEMPolicy SaadftDOB: [address], Number: [id number]-Canoncito-Laguna Hospital [address]Vmq: [id number] Repository ve Date:0202-66-95Vg () [address], [place] [address]RE: 12/04/2017 Secondary NOT GIVENUNK Katya Insurance:SELF PAY [facility] Number: Effective Repository Date:2017-12-04 11/04/2017 Tan Shalom Alec [place] Brooke Aldana [id number] Sr Insurance:ANTHEMPolicy SaadftDOB: [address], Number: [id number]-Canoncito-Laguna Hospital [address]Lnf: [id number] Repository ve Date:3043-58-59Lm () [address], [place] [address]UC: 11/04/2017 Secondary NOT GIVENUNK [place] Insurance:SELF PAY [facility] Number: Effective Repository Date:2017-11-04 10/25/2017 Tanrosalia Michael Primary Brooke Aldana [id number] Sr Insurance:ANTHEMPolicy AlecDOB: [address], Number: [id number]-Canoncito-Laguna Hospital [address]Osq: [id number] Repository ve Date:6783-13-24QM () [address], [place] [address]US: 10/25/2017 Secondary NOT GIVENUNK [place] Insurance:SELF PAY [facility] Number: Effective Repository Date:2017-10-25
== END ==
PROVIDERS: Family Provider Family Medicine; PCP Family Medicine; Visit Provider Family Medicine
DX: Z51.81 Encounter for therapeutic drug level monitoring (principal)
CPT/HCPCS: 80307

== ENCOUNTER → 2018-10-29 13:27 | Outpatient (CLI) | payer BC, SELFPAY ==
[2018-08-04 11:01] VITALS: BMI 26.4
[2018-10-29 16:11] LABS: ALB/GLOB Ratio 1.4 RATIO (0.9-2.4); AST(SGOT) 16 U/L (15-37); Alanine Aminotransfer ALT/SGPT 41 U/L (16-61); Albumin, Serum 3.9 g/dL (3.2-5.0); Alkaline Phosphatase 79 U/L (45-117); Anion Gap 6 (5-15); BUN 15 mg/dL (7-18); BUN/Creat Ratio 14.6 RATIO (10-20); Calcium,Total 8.4 mg/dL (8.5-10.1); Chloride 108 mmol/L (98-107); Creatinine, Serum 1.03 mg/dL (0.70-1.30); EST Glomerular Filtration Rate 86 mL/min (>60); Est Glom Filt Rate - Afr Amer 104 mL/min (>60); Globulin 2.8 g/dL (2.2-4.2); Glucose 101 mg/dL (74-106); Potassium 4.4 mmol/L (3.5-5.1); Protein, Total 6.7 g/dL (6.4-8.2); Sodium Level 140 mmol/L (136-145)
[2018-10-29 16:12] LABS: Absolute Lymphocyte Count 0.97 X10^3/ul (0.83-4.51); Absolute Neutrophil Count 4.6 X10^3/uL (2.0-7.7); Basophil# 0.02 X10^3/uL; Basophil% 0.3 % (0-1); Eosinophil# 0.02 X10^3/uL; Eosinophils% 0.3 % (0-5); Hematocrit 37.5 % (40-54); Hemoglobin 12.5 g/dl (13.0-16.5); Lymphocyte # 0.97 X10^3/ul (4.0); Lymphocyte % 15.8 % (19-41); Mean Corp Hgb Conc 33.3 g/gl (32-36); Mean Corpuscular Hgb 43.3 pg (27.0-32.0); Mean Corpuscular Volume 129.8 fL (80-94); Mean Platelet Vol. 9.7 fl (6.2-12.0); Monocyte# 0.48 X10^3/uL; Monocyte% 7.8 % (0-10); Neutrophil # 4.62 X10^3/uL (2.7-7.7); Neutrophil % 75.5 % (47-70); Platelet Count 275 K/mm3 (150-450); RBC Distribution Width CV 13.7 % (11.6-14.6); RBC Distribution Width SD 62.5 fl (35.1-43.9); Red Blood Count 2.89 M/mm3 (4.6-6.2); White Blood Count 6.1 K/mm3 (4.4-11.0)
[2018-10-29 16:43] LABS: POSITIVE COUNT NO; POSITIVE DIFFERENTIAL NO; POSITIVE MORPHOLOGY NO
== END ==
PROVIDERS: Family Provider Family Medicine; PCP Family Medicine; Referring Provider Internal Medicine Rheumatology; Visit Provider Internal Medicine Rheumatology
DX: M06.4 Inflammatory polyarthropathy (principal); M21.40 Flat foot [pes planus] (acquired), unspecified foot; D61.01 Constitutional (pure) red blood cell aplasia; S32.000D Wedge compression fracture of unspecified lumbar vertebra, subsequent encounter for fracture with routine healing; E83.119 Hemochromatosis, unspecified; F32.9 Major depressive disorder, single episode, unspecified
CPT/HCPCS: 36415; 80053; 85025

== ENCOUNTER → 2019-01-15 11:48 | Outpatient (CLI) | payer BC, SELFPAY ==
[2018-11-03 10:34] VITALS: BMI 27.6
[2019-01-15 12:28] LABS: OXY Internal Control LINE = VALID (VALID); Oxycodone Drug Screen Positive (<100 ng/mL)
[2019-01-15 12:53] LABS: Amphetamine Urine VISTA NEGATIVE (<1000 ng/mL); Barbiturate Urine VISTA NEGATIVE (< 200 ng/mL); Benzodiazepine Urine VISTA NEGATIVE (< 200 ng/mL); Cocaine Urine VISTA NEGATIVE (< 300 ng/mL); Ecstacy Urine VISTA NEGATIVE (< 500 ng/mL); Methadone Urine VISTA NEGATIVE (< 300 ng/mL); PCP Urine VISTA NEGATIVE (< 25 ng/mL); THC Urine VISTA NEGATIVE (< 50 ng/mL); Vista UDS pH Range 5
== END ==
PROVIDERS: Family Provider Family Medicine; PCP Family Medicine; Visit Provider Family Medicine
DX: Z51.81 Encounter for therapeutic drug level monitoring (principal); G89.4 Chronic pain syndrome
CPT/HCPCS: 80307; 80365; G0480

== ENCOUNTER → 2020-04-04 | Outpatient (CLI) | payer BC, SELFPAY ==
[2020-02-19 08:36] VITALS: BMI 26.7
--- NOTE | 2020-04-04 07:54 | ECHOCSONC_ITS ---
Version 2 Reason For Study: Dyspnea/SOB Procedure This was a 2D Doppler, Color Flow transthoracic echocardiogram. Myocardial strain analysis was performed in this exam to aid in the assessment of cardiac function. Contrast injection was performed. Exam performed in department. Left Ventricle Normal LV size. Left ventricular systolic function is normal. The estimated ejection fraction is 53 %. Normal diastology for age. No regional wall motion abnormalities noted. Right Ventricle Normal RV size. Normal systolic function. Atria Normal left atrium. Normal right atrium. Patent foramen ovale. Mitral Valve Normal mitral valve. Tricuspid Valve Normal tricuspid valve. Normal pulmonary artery pressure. Mild tricuspid valve insufficiency. Aortic Valve Normal aortic valve. Trisinus/trileaflet aortic valve. Pulmonic Valve Normal pulmonic valve. Great Vessels Normal aortic root. The pulmonary artery is normal size. Normal inferior vena cava. Pericardium/Pleural No pericardial effusion. Medication Performed a rapid injection of agitated mix of 9 cc saline and 1cc air to assess for atrial septal defect. Diluted definity 2ml given slow IV push to enhance endocardial definition. MMode/2D Measurements & Calculations LVIDd: 5.6 cm IVSd: 0.87 cm Ao root diam: 2.8 cm LVIDs: 4.4 cm LVPWd: 0.76 cm RVDd: 3.2 cm FS: 21.4 % LAV(MOD-bp): 44.4 ml LVAd ap4: 42.0 cm2 SV(MOD-sp4): 85.8 ml LAV(MOD-bp) Indexed: 20.6 ml/m2 EDV(MOD-sp4): 156.1 ml LAV(MOD-sp2): 62.1 ml EDV(sp4-el): 161.3 ml LAV(MOD-sp4): 34.1 ml LVAs ap4: 26.4 cm2 ESV(MOD-sp4): 70.3 ml ESV(sp4-el): 71.8 ml EF(MOD-sp4): 55.0 % EF(sp4-el): 55.5 % SV(sp4-el): 89.6 ml LA A4 area: 14.8 cm2 LA dimension(2D): 4.3 cm RA A4 area: 15.0 cm2 Doppler Measurements & Calculations MV E max kaushal: 56.0 cm/sec Lat Peak E' Kaushal: 11.9 cm/sec Med Peak E' Kaushal: 10.8 cm/sec MV A max kaushal: 70.2 cm/sec E/E' lat: 4.7 E/E' med: 5.2 MV E/A: 0.80 Ao V2 max: 121.9 cm/sec LV V1 max: 98.7 cm/sec PA V2 max: 93.8 cm/sec Ao max P.9 mmHg LV V1 max P.9 mmHg Ao V2 mean: 88.0 cm/sec Ao mean P.4 mmHg Ao V2 VTI: 24.8 cm TR max kaushal: 205.0 cm/sec TR max P.8 mmHg Interpretation Summary Normal LV size. Left ventricular systolic function is normal. The estimated ejection fraction is 53 %. Normal diastology for age. Contrast injection was performed. The global longitudinal strain is borderline abnormal. The global longitudinal strain = -16.2% (abnormal). Ordering Physician: Valentino Mccoy Referring Physician: Farooq Pearson Performed By: Abbey Suresh, GEGE, RVT
== END | disposition home or self-care (01) ==
LOC: CVS 07:54
PROVIDERS: PCP Family Medicine; Referring Provider Internal Medicine Cardiovascular Disease; Visit Provider Internal Medicine Cardiovascular Disease
DX: R06.00 Dyspnea, unspecified (principal); R06.02 Shortness of breath
CPT/HCPCS: 93306; 93356; Q9957; A4216; C8929

== ENCOUNTER 2020-12-09 08:01 | Day surgery (SDC) | payer BC, SELFPAY ==
[2020-12-02 12:10] VITALS: BMI 27.6
--- NOTE | 2020-12-09 07:11 | HP_ITS ---
Intake Vital Signs 12/02/20 Height 6 ft 12/02/20 Weight: 204 lb 12/02/20 BMI 27.6 12/02/20 BP 132/73 H 12/02/20 Blood Pressure Location Rt brachial 12/02/20 Position Sitting 12/02/20 Respiration 18 12/02/20 Pulse 115 H 12/02/20 Pulse Source Monitor 12/02/20 Temp 97.9 F 12/02/20 Temp Source Temporal 12/02/20 Pulse Oximetry (%) 93 12/02/20 Oxygen Delivery Method room air Intake Visit Reasons: CSCOPE, ANEMIA Chief Complaint: C-Scope Consult Mushroom Cutter Required: No Is patient in pain?: No Allergies No Known Allergies Allergy (Verified 12/02/20 12:12) Medications Citalopram Hydrobromide [Citalopram HBr] 40 mg PO DAILY 05/29/17 [History Confirmed 12/02/20] famotidine 20 mg tablet 20 mg PO BID tab 02/18/20 [History Confirmed 12/02/20] duloxetine 30 mg capsule,delayed release 30 mg PO DAILY cap 12/02/20 [History Confirmed 12/02/20] hydroxychloroquine 200 mg tablet 200 mg PO BID 12/02/20 [History Confirmed 12/02/20] prednisone 10 mg tablet 10 mg PO DAILY tab 12/02/20 [History] [facility] Medical History 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-induced osteopenia (Chronic) Lymphopenia (Chronic) GERD (gastroesophageal reflux disease) (Chronic) Depression (Chronic) Fibromyalgia (Chronic) 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) Lumbar herniated disc (Chronic) Macrocytosis (Chronic) Osteopenia (Chronic) Rheumatoid arthritis (Chronic) Hypotension (Resolved) History of blood transfusion (Inactive) Substance abuse (Inactive) Surgical History History of bone marrow biopsy (Resolved 2014) History of colonoscopy (Resolved) [place] teeth extracted (Resolved) Family History (Updated 12/02/20 @ 12:10 by Sarah Mcmillan) Father Pancreatic cancer Lung cancer CVA (cerebral vascular accident) Mother Ovarian cancer Lung cancer CVA (cerebral vascular accident) Briana-Blackfan anemia Son Briana-Blackfan anemia Uncle Colon cancer Social History (Updated 12/02/20 @ 13:[address] Shaun Lazo MD) Smoking Status: Current every day smoker tobacco type: cigars alcohol intake: never substance use type: other details: ocaasional marijuana use HPI HPI HPI: LEYLA HUNTER, is a 40 M who presents to the office today for HPI HPI Surgical H&P: Yes HPI: LEYLA HUNTER, is a 40 M who presents to the office today for Briana-Blackfan anemia. The patient has been overdue for his colonoscopy. He was recommend to have surveillance colonoscopies every 2 years. He has no abdominal pain or blood in his stool. He has a baseline abdominal discomfort that never goes away. ROS General General: Yes fatigue; no weight change, appetite, colon cancer, breast cancer or weakness HEENT HEENT: No difficulty swallowing, eye injury, eye surgery, swollen glands or hoarseness Endo Endocrine: No thyroid disease, diabetes mellitus, thyroid cancer, Hair loss, heat intolerance or cold intolerance Skin Skin: No rash or changing moles Breast Breast: No left breast lump, right breast lump, nipple discharge, breast pain, abnormal mammogram, abnormal US or breast enlargement Musc Musculoskeletal: Yes back problems, arthritis and rheumatoid arthritis; no gout or joint pain Cardio Cardiovascular: No murmur, pacemaker, heart disease, atrial fibrillation, high blood pressure, heart attack, heart stent, palpitations, shortness of breat with exertion or chest pain Psych Psychiatric: Yes depression; no anxiety or hearing voices Resp Respiratory: Yes shortness of breath, No sleep apnea, No cough, No COPD, No asthma, No emphysema, No wheezing Gastro Gastrointestinal: Yes abdominal pain, Yes nausea or vomiting, Yes diarrhea, No constipation, No blood in stool, Yes acid reflux, No hemorrhoids, No ulcers, No gallbladder problem, No black,tarry stools Zaid Hematologic: No blood thinners, Yes blood disorders, No bleeding, Yes anemia, No blood clots Neuro Neurologic: No system reviewed and no additional complaints, except as docu, No as per HPI, No abnormal walking, No abnormal hearing, No abnormal movements, No abnormal speech, No behavioral changes, No burning sensations, No confusion, No seizure-like activity, No unsteadiness, No dizziness, No localized weakness, No frequent falls, No headache(s), No lack of coordination, No loss of vision, No memory loss, No numbness, No other visual disturbances, No radiating pain, No restless legs, No sensory deficit, No fainting, No tingling, No tremor(s), No weakness, No other Exam Const General: cooperative Orientation: alert, oriented x3 Chest Breast Palpation: No nipple discharge Resp Effort & Inspection: normal respiratory effort Auscultation: clear to auscultation bilaterally Cardio Rate: regular rate Rhythm: regular rhythm Heart Sounds: no murmurs GI Inspection: non-distended Palpation: soft, nontender Assessment & Plan Problems 1. Briana-Blackfan anemia D61.01 Plan Patient requires surveillance colonoscopies every 2 years due to his Briana- Blackfan anemia. He is overdue for colonoscopy. I explained endoscopy in detail to the patient. I explained the risks including but not limited to stroke or heart attack with anesthesia, perforation of the GI tract, bleeding, infection. I explained that any of these could necessitate further emergency surgery. The patient understands and all questions were answered sufficiently. The patient wishes to proceed with procedure. Shaun Lazo MD Pager: [facility] [address] [place] [address], [address] [place] [address] Office: Orders Orders: Colonoscopy Today D61.01 Coding Level of Care Code Off vis,new,level 3 Diagnoses Briana-Blackfan anemia D61.01 I have re-examined the patient. There are no clinical changes since date of exam.
[2020-12-09 08:15] VITALS: BP 107/63; PULSE 67; RESP 16; TEMP 36.3; O2SAT 97; BMI 26.4
[2020-12-09] MEDS: Lactated Ringers 1,000 ML 100 ML IV (08:20)
[2020-12-09 09:21] VITALS: BP 107/63; BP 84/43; PULSE 64; RESP 16; TEMP 36.3; O2SAT 96
--- NOTE | 2020-12-09 09:23 | OP.COLON_ITS ---
Patient Name: Tan Michael Procedure Date: 12/09/2020 8:48 AM Date of : 1980 Age: 40 Procedure: Colonoscopy Indications: Briana-Blackfan Anemia Providers: Shaun Lazo MD Referring MD: Farooq Pearson Medicines: Monitored Anesthesia Care Patient Profile: This is a 40 year old male. Refer to note in patient chart for documentation of history and physical. Last Colonoscopy: more than 3 years ago. Complications: No immediate complications. Procedure: Pre-Anesthesia Assessment: - Prior to the procedure, a History and Physical was performed, and patient medications and allergies were reviewed. The patient's tolerance of previous anesthesia was also reviewed. The risks and benefits of the procedure and the sedation options and risks were discussed with the patient. All questions were answered, and informed consent was obtained. Prior Anticoagulants: The patient has taken no previous anticoagulant or antiplatelet agents. After reviewing the risks and benefits, the patient was deemed in satisfactory condition to undergo the procedure. - Prior to the procedure, a History and Physical was performed, and patient medications and allergies were reviewed. The patient's tolerance of previous anesthesia was also reviewed. The risks and benefits of the procedure and the sedation options and risks were discussed with the patient. All questions were answered, and informed consent was obtained. Prior Anticoagulants: The patient has taken no previous anticoagulant or antiplatelet agents. After reviewing the risks and benefits, the patient was deemed in satisfactory condition to undergo the procedure. After I obtained informed consent, the scope was passed under direct vision. Throughout the procedure, the patient's blood pressure, pulse, and oxygen saturations were monitored continuously. The colonoscope was introduced through the anus and advanced to the cecum, identified by appendiceal orifice and ileocecal valve. The colonoscopy was performed without difficulty. The patient tolerated the procedure well. The quality of the bowel preparation was good. Scope In: 9:07:06 AM Scope Withdrawal Time 0 hours 6 minutes 52 seconds Scope Out: 9:17:32 AM Total Procedure Duration Time 0 hours 10 minutes 26 seconds Findings: The entire examined colon appeared normal on direct and retroflexion views. Impression: - The entire examined colon is normal on direct and retroflexion views. - No specimens collected. Recommendation: - Discharge patient to home. - Resume previous diet. - Continue present medications. - Repeat colonoscopy in 2 years for screening purposes. Procedure Code(s): --- Professional --- 32620, Colonoscopy, flexible; diagnostic, including collection of specimen(s) by brushing or washing, when performed (separate procedure) CPT copyright 2017 [employer]. All rights reserved. The codes documented in this report are preliminary and upon locksmith apprentice review may be revised to meet current compliance requirements. Shaun Lazo MD 12/09/2020 9:22:27 AM This report has been signed electronically. Number of Addenda: 0 Note Initiated On: 12/09/2020 8:48 AM
--- NOTE | 2020-12-09 09:23 | OP.CCLET_ITS ---
12/09/2020 Farooq Pearson [address] [place] [address] Re : Colonoscopy procedure for Tan Michael Dear Dr. Pearson This procedure was performed on Wednesday, December 09, 2020. My impressions and recommendations are as follows: Impressions : - The entire examined colon is normal on direct and retroflexion views. - No specimens collected. Recommendations : - Discharge patient to home. - Resume previous diet. - Continue present medications. - Repeat colonoscopy in 2 years for screening purposes. My findings are described in the full procedure note, which is enclosed. If I can be of further assistance, please feel free to contact me at Doctor phone number(s): , Work: . Sincerely, Shaun Lazo MD 12/09/2020 9:22:27 AM This report has been signed electronically.
[2020-12-09 09:25] VITALS: BP 107/63; BP 87/45; PULSE 65; RESP 16; O2SAT 99
[2020-12-09 09:30] VITALS: BP 107/63; BP 88/55; PULSE 68; RESP 18; O2SAT 98
[2020-12-09 09:38] VITALS: BP 107/63; BP 94/53; PULSE 63; RESP 16; O2SAT 100
[2020-12-09 10:00] VITALS: BP 107/63
== END 2020-12-09 10:00 | disposition home or self-care (01) ==
LOC: EN 08:02 → AC 08:02
PROVIDERS: PCP Family Medicine; Referring Provider Family Medicine; Visit Provider Surgery
PROC: 0DJD8ZZ Inspection of Lower Intestinal Tract, Via Natural or Artificial Opening Endoscopic (ICD-10-PCS; CPT 45378; principal; 2020-12-09 09:10)
DX: D61.01 Constitutional (pure) red blood cell aplasia (principal); K21.9 Gastro-esophageal reflux disease without esophagitis; F32.9 Major depressive disorder, single episode, unspecified; F41.9 Anxiety disorder, unspecified; M79.7 Fibromyalgia; M06.9 Rheumatoid arthritis, unspecified; E83.110 Hereditary hemochromatosis; F17.290 Nicotine dependence, other tobacco product, uncomplicated; Z79.899 Other long term (current) drug therapy; Z20.822 Contact with and (suspected) exposure to COVID-19
CPT/HCPCS: 45378; 87426; C9803; J7120; J2405

== ENCOUNTER → 2022-06-19 | Outpatient (CLI) | payer BC, SELFPAY ==
[2022-06-19 17:43] LABS: Absolute Lymphocyte Count 1.05 X10^3/uL (0.83-4.51); Absolute Neutrophil Count 5.7 X10^3/uL (2.0-7.7); Basophil# 0.02 X10^3/uL; Basophil% 0.3 % (0-1); Eosinophil# 0.03 X10^3/uL; Eosinophils% 0.4 % (0-5); Hematocrit 18.8 % (40-54); Hemoglobin 6.4 g/dL (13.0-16.5); Lymphocyte # 1.05 X10^3/ul (0.83-4.51); Lymphocyte % 14.5 % (19-41); Mean Corpuscular Hgb 40.5 pg (27.0-32.0); Mean Platelet Vol. 9.4 fl (6.2-12.0); Monocyte# 0.41 X10^3/uL; Monocyte% 5.7 % (0-10); NRBC Flagged by Analyzer 0 % (0-5); Neutrophil # 5.71 X10^3/uL (2.7-7.7); Neutrophil % 78.7 % (47-70); Platelet Count 445 K/mm3 (150-450); RBC Distribution Width CV 13.1 % (11.6-14.6); RBC Distribution Width SD 55.5 fl (35.1-43.9); Red Blood Count 1.58 M/mm3 (4.6-6.2); White Blood Count 7.3 K/mm3 (4.4-11.0)
[2022-06-19 18:18] LABS: ALB/GLOB Ratio 1.2 RATIO (0.9-2.4); AST(SGOT) 12 U/L (15-37); Alanine Aminotransfer ALT/SGPT 42 U/L (16-61); Alkaline Phosphatase 123 U/L (45-117); Anion Gap 12 (5-15); BUN 19 mg/dL (7-18); BUN/Creat Ratio 16.8 RATIO (10-20); Chloride 105 mmol/L (98-107); Creatinine, Serum 1.13 mg/dL (0.70-1.30); EST Glomerular Filtration Rate 76 mL/min (>60); Est Glom Filt Rate - Afr Amer 92 mL/min (>60); Ferritin 2502 ng/mL (26-388); Globulin 3.2 g/dL (2.2-4.2); Glucose 138 mg/dL (74-106); Iron 312 ug/dL (65-175); Iron Binding Capacity,Total 353 ug/dL (250-450); PERCENT IRON SATURATION 88.4 % (15.0-55.0); Potassium 3.6 mmol/L (3.5-5.1); Protein, Total 7.2 g/dL (6.4-8.2); Sodium Level 138 mmol/L (136-145)
== END | disposition home or self-care (01) ==
LOC: MTLAB 15:05
PROVIDERS: PCP Family Medicine; Referring Provider Family Medicine; Visit Provider Family Medicine
DX: Z00.00 Encounter for general adult medical examination without abnormal findings (principal); D64.9 Anemia, unspecified; E83.119 Hemochromatosis, unspecified
CPT/HCPCS: 36415; 80053; 82728; 83540; 83550; 85025

== ENCOUNTER → 2022-06-21 | Outpatient (CLI) | payer BC, SELFPAY ==
[2022-06-21] VITALS (7 sets, daily range): BP systolic 113–129; BP diastolic 48–65; PULSE 77–96; RESP 16; TEMP 35.9–36.5; O2SAT 94–97
[2022-06-21] MEDS: 0.9% NaCl Peripheral Flush Adult/Peds IV (09:03)
== END | disposition home or self-care (01) ==
LOC: MEDOUTP 08:30
PROVIDERS: PCP Family Medicine; Referring Provider Family Medicine; Visit Provider Family Medicine
DX: D61.01 Constitutional (pure) red blood cell aplasia (principal); D64.9 Anemia, unspecified; E83.119 Hemochromatosis, unspecified
CPT/HCPCS: 36415; 36430; 86850; 86900; 86901; 86920; 86922; J7040; P9016; A4216

== ENCOUNTER → 2022-07-05 | Outpatient (CLI) | payer BC, MEDICARE, SELFPAY ==
[2022-07-05 10:01] VITALS: BP 133/79; PULSE 92; RESP 16; TEMP 36.7; O2SAT 95; BMI 31.1
[2022-07-05 10:25] VITALS: BP 120/66; PULSE 82; RESP 14; TEMP 36.8; O2SAT 93
[2022-07-05 11:22] VITALS: BP 151/68; PULSE 87; RESP 16; TEMP 36.3
[2022-07-05 11:25] VITALS: BP 124/72; PULSE 94; RESP 14; TEMP 36.6; O2SAT 94
[2022-07-05] MEDS: 0.9% NaCl Peripheral Flush Adult/Peds IV (11:26)
== END | disposition home or self-care (01) ==
LOC: MEDOUTP 09:42
PROVIDERS: PCP Family Medicine; Referring Provider Internal Medicine Hematology & Oncology; Visit Provider Internal Medicine Hematology & Oncology
DX: D61.01 Constitutional (pure) red blood cell aplasia (principal)
CPT/HCPCS: 36430; 86850; 86900; 86901; 86920; 86922; J7040; P9016; A4216

== ENCOUNTER → 2022-08-31 | Outpatient (CLI) | payer BC, MEDICARE, SELFPAY ==
[2022-08-31] MEDS: 0.9% NaCl Peripheral Flush Adult/Peds IV (08:12)
[2022-08-31 08:13] VITALS: BP 129/76; PULSE 100; RESP 16; TEMP 36.3; O2SAT 97; BMI 31.1
[2022-08-31 09:00] VITALS: BP 129/63; PULSE 86; TEMP 36.3; O2SAT 94
[2022-08-31 09:57] VITALS: BP 125/68; PULSE 81; RESP 16; TEMP 36.3
[2022-08-31 11:29] VITALS: BP 147/72; PULSE 90; TEMP 36.1; O2SAT 96
[2022-08-31 12:26] VITALS: BP 139/75; PULSE 91; RESP 16; TEMP 36.5
== END | disposition home or self-care (01) ==
PROVIDERS: PCP Family Medicine; Referring Provider Internal Medicine Hematology & Oncology; Visit Provider Internal Medicine Hematology & Oncology
DX: D61.09 Other constitutional aplastic anemia (principal)
CPT/HCPCS: 36415; 36430; 86850; 86900; 86901; 86920; 86922; J7040; P9016; A4216

== ENCOUNTER 2022-10-01 13:06 | Emergency (ER) | payer BC, MEDICARE, SELFPAY ==
[2022-10-01 13:07] VITALS: BP 135/81; PULSE 130; RESP 22; TEMP 36.4; O2SAT 96; BMI 31.1
--- NOTE | 2022-10-01 13:19 | EKG12_ITS ---
Test Reason : PALP Blood Pressure : / mmHG Vent. Rate : 107 BPM Atrial Rate : 107 BPM P-R Int : 134 ms QRS Dur : 080 ms QT Int : 306 ms P-R-T Axes : 059 066 080 degrees QTc Int : 408 ms Sinus tachycardia Minimal voltage criteria for LVH, may be normal variant ( Sokolow-Wei ) Borderline ECG Confirmed by SKIP ESTRADA, ROXANA ([id number]), non linear editor YARY CARDONA ([id number]) on 10/03/2022 10:42:31 AM Referred By: Confirmed By:ROXANA VALDIVIA MD
[2022-10-01 13:58] LABS: Anion Gap 12 (5-15); BUN 17 mg/dL (7-18); BUN/Creat Ratio 13.7 RATIO (10-20); Calcium,Total 8.4 mg/dL (8.5-10.1); Chloride 106 mmol/L (98-107); Creatinine, Serum 1.24 mg/dL (0.70-1.30); EST Glomerular Filtration Rate 68 mL/min (>60); Est Glom Filt Rate - Afr Amer 82 mL/min (>60); Estimated Creatinine Clearance 86.05 ml/min; Glucose 189 mg/dL (74-106); Potassium 4.1 mmol/L (3.5-5.1); Sodium Level 140 mmol/L (136-145)
[2022-10-01 14:09] VITALS: BP 124/77; PULSE 109; RESP 25; O2SAT 96
--- NOTE | 2022-10-01 14:10 | RAD_ITS ---
We are attempting to reach an attending provider to discuss findings. An addendum with communication details will be sent when the communication is complete. EXAM: XR CHEST, 1 VIEW CLINICAL INDICATION: chest pain, SOB TECHNIQUE: Frontal view of the chest. This report was created using [employer] report generation technology. COMPARISON: 07/25/2018. FINDINGS: LUNGS AND PLEURAL SPACES: No suspicious infiltrates. No pneumothorax. No effusion. HEART: Unremarkable. Cardiac silhouette not enlarged. MEDIASTINUM: Central airways and mediastinal contour are unremarkable. BONES/JOINTS: Unremarkable. SOFT TISSUES: Unremarkable. UPPER ABDOMEN: Pneumoperitoneum underneath the right hemidiaphragm. RAD/Chest 1 View (Portable) IMPRESSION: 1. Pneumoperitoneum underneath the right hemidiaphragm is worrisome for perforated bowel unless there was recent abdominal surgery or laparoscopic surgery. Please correlate with operative history. 2. No acute cardiopulmonary pathology. Electronically Signed: Lorne Leal MD at 14:56 EST ,
[2022-10-01 14:27] LABS: Differential Indicated MANUAL DIFF; Hematocrit 29.1 % (40-54); Hemoglobin 9.5 g/dL (13.0-16.5); Mean Corp Hgb Conc 32.6 g/dL (32-36); Mean Corpuscular Hgb 38.6 pg (27.0-32.0); Mean Corpuscular Volume 118.3 fL (80-94); Mean Platelet Vol. 9.1 fl (6.2-12.0); POSITIVE COUNT YES; POSITIVE MORPHOLOGY YES; Platelet Count 272 K/mm3 (150-450); Red Blood Count 2.46 M/mm3 (4.6-6.2)
[2022-10-01 14:36] LABS: Troponin-I HS 9 pg/mL (3.0-78.0)
--- NOTE | 2022-10-01 14:37 | EDS_ITS ---
HPI <BETZAIDA Ayon - Last Filed: 10/01/22 22:10> History of Present Illness Chief Complaint: Palpitations Narrative Narrative: Patient presents today with tachycardia, left-sided cramping chest pain, and shortness of breath. He states that he his heart rate has been really high over the past few days and was 180 bpm after showering and over 100 bpm at rest. He states he has had the chest pain intermittently over the past few months as well as the shortness of breath. Patient has Briana-Blackfan anemia and has required blood transfusions in June and August due to being symptomatic. He states after being transfused, he will be asymptomatic for a few weeks until his hemoglobin drops under 10 again. Patient also is taking 60 mg prednisone daily. He denies a cardiac history as well as a history of blood clots. He denies recent fever, abdominal pain, nausea, vomiting, and diarrhea. 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 Iron overload due to repeated red blood cell transfusions Lumbar herniated disc Lymphopenia Macrocytosis Osteopenia Patent foramen ovale Rheumatoid arthritis Steroid-induced osteopenia Substance abuse Home Medications citalopram 40 mg tablet 40 mg PO DAILY 05/29/17 [History Last Taken Unknown] famotidine 20 mg tablet 20 mg PO BID 02/18/20 [History Last Taken 12/09/20 05:30] hydroxychloroquine 200 mg tablet (Plaquenil) 200 mg PO BID 12/02/20 [History Last Taken Unknown] oxycodone-acetaminophen 7.5 mg-325 mg tablet 1 ea PO Q6H PRN PRN Pain 1-10 Or Fever 12/06/20 [History Last Taken Unknown] omeprazole 40 mg capsule,delayed release 40 mg PO DAILY 12/13/21 [History Last Taken Unknown] tramadol 100 mg tablet,extended release 24 hr 100 mg PO DAILY 12/13/21 [History Last Taken Unknown] ascorbic acid (vitamin C) 250 mg tablet (Vitamin C) 250 mg PO DAILY 07/05/22 [History Last Taken Unknown] prednisone 10 mg tablet 40 mg PO DAILY 07/05/22 [History Last Taken Unknown] deferasirox 360 mg tablet (Jadenu) 1,440 mg PO DAILY 08/31/22 [History Last Taken Unknown] Allergy/AdvReac Type Severity Reaction Status Date / Time No Known Allergies Allergy Verified 10/01/22 13:57 Family History Father Pancreatic cancer Lung cancer CVA (cerebral vascular accident) Mother Ovarian cancer Lung cancer CVA (cerebral vascular accident) Briana-Blackfan anemia Son Briana-Blackfan anemia Uncle Colon cancer Surgical History History of bone marrow biopsy (2014) History of colonoscopy [place] teeth extracted Social History Smoking Status: Current every day smoker tobacco type: cigars alcohol intake: never substance use type: other details: ocaasional marijuana use ROS <BETZAIDA Ayon - Last Filed: 10/01/22 22:10> ROS ED Constitutional Constitutional ED: Denies chills, fever(s) or sweats Eyes Eyes: Denies blurry vision or change in vision ENT ENT ED: Denies rhinorrhea or sore throat Cardiovascular Cardiovascular: Reports chest pain, palpitations and racing heartbeat Respiratory/Chest Respiratory/Chest: Reports dyspnea and dyspnea on exertion; Denies cough Gastrointestinal Gastrointestinal: Denies abdominal pain, diarrhea, nausea or vomiting Genitourinary Genitourinary ED: Denies dysuria, hematuria or urinary frequency Musculoskeletal Musculoskeletal: Denies arthralgias, back pain or myalgias Integumentary Denies abscess, Abrasions or rash Neurologic Neurologic: Denies headache(s), paresthesias or weakness Psychiatric Psychiatric: Denies anxiety, depression or suicidal ideation EXAM <BETZAIDA Ayon - Last Filed: 10/01/22 22:10> Physical Exam Const Vital Signs: 10/01/22 13:07 10/01/22 14:06 10/01/22 14:09 Temperature 97.6 F L Temperature Source Temporal Pulse Rate 130 H 109 H Respiratory Rate 22 H 25 H Respiratory Effort Short of Breath Blood Pressure 135/81 H 124/77 H Blood Pressure Mean 99 92 Pulse Ox 96 96 Oxygen Delivery Method Room Air Room Air 10/01/22 16:03 10/01/22 17:09 10/01/22 18:04 Temperature Temperature Source Pulse Rate 93 88 83 Respiratory Rate 19 H 20 H 18 Respiratory Effort Blood Pressure 124/77 H 147/100 H 124/78 H Blood Pressure Mean 92 115 93 Pulse Ox 97 93 96 Oxygen Delivery Method Room Air 10/01/22 20:17 Temperature 98.0 F Temperature Source Pulse Rate 91 Respiratory Rate 20 H Respiratory Effort Blood Pressure 147/97 H Blood Pressure Mean 113 Pulse Ox 95 Oxygen Delivery Method Positive well nourished and well developed General Appearance ED: well developed and NAD HEENT Reports moist mucous membranes normocephalic and atraumatic Eyes PERRL and EOMs intact bilaterally Neck no lymphadenopathy and supple Chest Wall inspection of chest normal and palpation of chest normal Resp clear to auscultation bilaterally Effort and Inspection: tachypneic Auscultation: clear to auscultation bilaterally Cardio regular rate, regular rhythm and no murmurs GI soft to palpation, non-tender, non-distended and no masses Extremity normal to inspection Neuro oriented x3, CN's II-XII intact bilaterally, no sensory deficits noted and gait normal Motor Exam: strength 5/5 throughout Psych mental status grossly normal Skin no rashes or lesions noted and no wounds <Dr. Sterling Reyes, DO - Last Filed: 10/01/22 23:21> Physical Exam Const Vital Signs: 10/01/22 13:07 10/01/22 14:06 10/01/22 14:09 Temperature 97.6 F L Temperature Source Temporal Pulse Rate 130 H 109 H Respiratory Rate 22 H 25 H Respiratory Effort Short of Breath Blood Pressure 135/81 H 124/77 H Blood Pressure Mean 99 92 Pulse Ox 96 96 Oxygen Delivery Method Room Air Room Air 10/01/22 16:03 10/01/22 17:09 10/01/22 18:04 Temperature Temperature Source Pulse Rate 93 88 83 Respiratory Rate 19 H 20 H 18 Respiratory Effort Blood Pressure 124/77 H 147/100 H 124/78 H Blood Pressure Mean 92 115 93 Pulse Ox 97 93 96 Oxygen Delivery Method Room Air 10/01/22 20:17 Temperature 98.0 F Temperature Source Pulse Rate 91 Respiratory Rate 20 H Respiratory Effort Blood Pressure 147/97 H Blood Pressure Mean 113 Pulse Ox 95 Oxygen Delivery Method MDM <BETZAIDA Ayon - Last Filed: 10/01/22 22:10> [facility] Narrative Medical decision making narrative: Patient is nontoxic-appearing and in no acute distress. He was tachycardic and tachypneic on initial presentation. Patient's presentation was discussed with Dr. Sandhu, his mica machine operator who states it would be okay for patient to receive 1 unit of blood due to being symptomatic. He states that there is no need to check for iron level as patient is on an agent to lower this. Patient states he is symptomatic when hemoglobin drops below 10. Patient denies melena and hematochezia, however, he is Hemoccult positive. Hemoglobin on 06/26/2023 was 10.1 and hematocrit was 30.8. Chest x-ray obtained due to chest pain and was suspicious for perforated bowel. Because of this CT of the abdomen pelvis obtained and shows ischemic bowel of the right colon and free air. CT of the chest also obtained due to patient's complaints of chest pain and shortness of breath. This showed bibasilar groundglass opacities. Patient has been discussed with Dr. García who states that it would be best for patient to be transferred to a different hospital for treatment due to his medical history. I have started patient on Zosyn but he has not been given the blood transfusion yet. Patient will be transferred to [facility] for surgical services. Patient is comfortable with plan. Impressions: 1. Briana-Blackfan anemia 2. Hemochromatosis 3. Chest pain 4. Shortness of breath 5. Perforated ischemic bowel Lab Data Attestation: I reviewed the patient's lab results. Lab results narrative: RBC 2.46, hemoglobin 9.5, hematocrit 29.8, MCV 118.3, MCH 38.6, lymphocytes 7%, glucose 189, calcium 8.4, troponin 9, repeat troponin 8, D-dimer 0.28 Labs: Laboratory Results - last 24 hr 10/01/22 10/01/22 10/01/22 13:25 13:25 13:25 WBC Cancelled Corrected WBC Cancelled RBC Cancelled Hgb Cancelled Hct Cancelled MCV Cancelled MCH Cancelled MCHC Cancelled RDW Std Deviation Cancelled RDW Coeff of Ceci Cancelled Plt Count Cancelled MPV Cancelled Immature Gran % (Auto) Cancelled Neut % (Auto) Cancelled Lymph % (Auto) Cancelled [place] % (Auto) Cancelled Eos % (Auto) Cancelled Baso % (Auto) Cancelled Absolute Neuts (auto) Cancelled Absolute Lymphs (auto) Cancelled Total Counted Cancelled Neutrophils % (Manual) Cancelled Band Neutrophils % Cancelled Lymphocytes % (Manual) Cancelled Monocytes % (Manual) Cancelled Eosinophils % (Manual) Cancelled Basophils % (Manual) Cancelled Metamyelocytes % Cancelled Myelocytes % Cancelled Promyelocytes % Cancelled Blast Cells % Cancelled Plasma Cell % (Manual) Cancelled Other Cells % Cancelled Nucleated RBC % Cancelled Nucleated RBCs/100 WBC Cancelled Differential Comment Cancelled Diff Path Review Cancelled Hypersegmented Neuts Cancelled Atypical Lymphocytes Cancelled Reactive Lymphocytes Cancelled Smudge Cells Cancelled Toxic Granulation Cancelled Toxic Vacuolation Cancelled Dohle Bodies Cancelled [place] Cancelled Platelet Estimate Cancelled Plt Morphology Comment Cancelled RBC Morphology Cancelled Polychromasia Cancelled Hypochromasia Cancelled Poikilocytosis Cancelled Basophilic Stippling Cancelled Anisocytosis Cancelled Microcytosis Cancelled Macrocytosis Cancelled Spherocytes Cancelled Sickle Cells Cancelled Target Cells Cancelled Tear Drop Cells Cancelled Ovalocytes Cancelled Stomatocytes Cancelled [place] Bodies Cancelled [place] Cells Cancelled Bite Cells Cancelled Crenated Cell Cancelled Acanthocytes (Spur) Cancelled Rouleaux Cancelled Schistocytes Cancelled D-Dimer Quant (PE/DVT) 0.28 Sodium 140 Potassium 4.1 Chloride 106 Carbon Dioxide 22.0 Anion Gap 12 BUN 17 Creatinine 1.24 Estim Creat Clear Calc 86.05 Est GFR (MDRD) Af Amer 82 Est GFR (MDRD) Non-Af 68 BUN/Creatinine Ratio 13.7 Glucose 189 H Lactic Acid Calcium 8.4 L Troponin I High Sens Blood Type Antibody Screen Crossmatch 10/01/22 10/01/22 10/01/22 13:25 13:25 13:25 WBC 8.0 Corrected WBC RBC 2.46 L Hgb 9.5 L Hct 29.1 L MCV 118.3 H MCH 38.6 H MCHC 32.6 RDW Std Deviation Not Reportable RDW Coeff of Ceci Not Reportable Plt Count 272 MPV 9.1 Immature Gran % (Auto) Neut % (Auto) Not Reportable Lymph % (Auto) [place] % (Auto) Eos % (Auto) Baso % (Auto) Absolute Neuts (auto) 7.0 Absolute Lymphs (auto) 0.56 L Total Counted 100 Neutrophils % (Manual) 85 H Band Neutrophils % 2 Lymphocytes % (Manual) 7 L Monocytes % (Manual) 2 Eosinophils % (Manual) Basophils % (Manual) Metamyelocytes % 1 Myelocytes % 3 H Promyelocytes % Blast Cells % Plasma Cell % (Manual) Other Cells % Nucleated RBC % Nucleated RBCs/100 WBC 1 Differential Comment Diff Path Review May foll Hypersegmented Neuts Atypical Lymphocytes Reactive Lymphocytes Smudge Cells Toxic Granulation Toxic Vacuolation Dohle Bodies [place] Platelet Estimate ADEQUATE Plt Morphology Comment RBC Morphology Polychromasia 1+ Hypochromasia Poikilocytosis Basophilic Stippling Anisocytosis 3+ Microcytosis Macrocytosis 3+ Spherocytes Sickle Cells Target Cells Tear Drop Cells Ovalocytes Stomatocytes [place] Bodies [place] Cells Bite Cells Crenated Cell Acanthocytes (Spur) Rouleaux Schistocytes D-Dimer Quant (PE/DVT) Sodium Potassium Chloride Carbon Dioxide Anion Gap BUN Creatinine Estim Creat Clear Calc Est GFR (MDRD) Af Amer Est GFR (MDRD) Non-Af BUN/Creatinine Ratio Glucose Lactic Acid Calcium Troponin I High Sens Blood Type O POSITIVE Antibody Screen NEGATIVE Crossmatch See Detail 10/01/22 10/01/22 10/01/22 13:45 15:53 18:09 WBC Corrected WBC RBC Hgb Hct MCV MCH MCHC RDW Std Deviation RDW Coeff of Ceci Plt Count MPV Immature Gran % (Auto) Neut % (Auto) Lymph % (Auto) [place] % (Auto) Eos % (Auto) Baso % (Auto) Absolute Neuts (auto) Absolute Lymphs (auto) Total Counted Neutrophils % (Manual) Band Neutrophils % Lymphocytes % (Manual) Monocytes % (Manual) Eosinophils % (Manual) Basophils % (Manual) Metamyelocytes % Myelocytes % Promyelocytes % Blast Cells % Plasma Cell % (Manual) Other Cells % Nucleated RBC % Nucleated RBCs/100 WBC Differential Comment Diff Path Review Hypersegmented Neuts Atypical Lymphocytes Reactive Lymphocytes Smudge Cells Toxic Granulation Toxic Vacuolation Dohle Bodies [place] Platelet Estimate Plt Morphology Comment RBC Morphology Polychromasia Hypochromasia Poikilocytosis Basophilic Stippling Anisocytosis Microcytosis Macrocytosis Spherocytes Sickle Cells Target Cells Tear Drop Cells Ovalocytes Stomatocytes [place] Bodies [place] Cells Bite Cells Crenated Cell Acanthocytes (Spur) Rouleaux Schistocytes D-Dimer Quant (PE/DVT) Sodium Potassium Chloride Carbon Dioxide Anion Gap BUN Creatinine Estim Creat Clear Calc Est GFR (MDRD) Af Amer Est GFR (MDRD) Non-Af BUN/Creatinine Ratio Glucose Lactic Acid 2.1 H* Calcium Troponin I High Sens 9 8 Blood Type Antibody Screen Crossmatch Radiography Diagnostic Testing: Clinical Impression(s) from Imaging Studies Chest X-Ray 10/01/22 14:10 IMPRESSION: 1. Pneumoperitoneum underneath the right hemidiaphragm is worrisome for perforated bowel unless there was recent abdominal surgery or laparoscopic surgery. Please correlate with operative history. 2. No acute cardiopulmonary pathology. Electronically Signed: Lorne Leal MD at 14:56 EST , ADDENDUM: 10/01/22 1509 IMPRESSION: 1. Pneumoperitoneum underneath the right hemidiaphragm is worrisome for perforated bowel unless there was recent abdominal surgery or laparoscopic surgery. Please correlate with operative history. 2. No acute cardiopulmonary pathology. N.B. : The above Results were Read Back by Lorne Leal MD to Dr. Eric MD, and understanding confirmed on 10/01/2022 15:02:41 (ET). Electronically Signed: Lorne Leal MD at 14:56 EST , Chest/Abdomen/Pelvis CT 10/01/22 15:00 IMPRESSION: Pneumatosis right colon and free air. There also appears to be gas within the mesenteric veins. This is suspicious for ischemic bowel. Bibasilar groundglass opacities are nonspecific and indeterminate for coated maintained. Electronically Signed: Kaden Hu MD at 17:14 EST , ADDENDUM: 10/01/22 1731 IMPRESSION: Pneumatosis right colon and free air. There also appears to be gas within the mesenteric veins. This is suspicious for ischemic bowel. Bibasilar groundglass opacities are nonspecific and indeterminate for coated maintained. N.B. : The above Results were Read Back by Kaden Hu MD to RADHA SANTA PA, and understanding confirmed on 10/01/2022 17:25:15 (ET). Electronically Signed: Kaden Hu MD at 17:14 EST Reading Location ID and State: [facility] / [place] , Service support , Chest x-ray shows pneumoperitoneum worrisome for perforated bowel, CT of the abdomen and pelvis shows ischemic bowel of right colon and free air. EKG Initial EKG: Attestation: I personally reviewed and interpreted this EKG as follows: Comments: 107 bpm, sinus tachycardia, minimal voltage criteria for LVH, may be normal variant. No ST elevation. EKG also reviewed and interpreted by attending ED physician <Dr. Sterling Reyes, DO - Last Filed: 10/01/22 23:21> [facility] Narrative Medical decision making narrative: Patient is nontoxic-appearing and in no acute distress, however he was tachycardic and tachypneic on initial presentation. Patient's presentation was discussed with Dr. Sandhu, his mica machine operator who states it would be okay for patient to receive 1 unit of blood due to being symptomatic. He states that there is no need to check for iron level as patient is on an agent to lower this. Patient states he is symptomatic when hemoglobin drops below 10. Patient denies melena and hematochezia, however, he is Hemoccult positive. Hemoglobin on 06/26/2023 was 10.1 and hematocrit was 30.8. Chest x-ray obtained due to chest pain and was suspicious for perforated bowel. Because of this CT of the abdomen pelvis obtained and shows ischemic bowel of the right colon and free air. CT of the chest also obtained due to patient's complaints of chest pain and shortness of breath. This showed bibasilar groundglass opacities. Patient has been discussed with Dr. García who states that it would be best for patient to be transferred to a different hospital for treatment due to his medical history. I have started patient on Zosyn but he has not been given the blood transfusion yet. Patient will be transferred to [facility] for surgical services. Patient is comfortable with plan. Impressions: 1. Briana-Blackfan anemia 2. Hemochromatosis 3. Chest pain 4. Shortness of breath 5. Perforated ischemic bowel Dr. Reyes: This patient was seen with a PA/FRONT OFFICE JAVA DEVELOPER Individually assessed they patient including history and physical. I have reviewed everything on the chart that is available and agree with the documentation provided by the PA/FRONT OFFICE JAVA DEVELOPER including discussion about the assessment, treatment plan, discussion, and return precautions. 42-year-old male presenting initially with fairly chronic chest pain and shortness of breath secondary to Briana-Blackfan anemia. He sees oncology for this and periodically has to be transfused blood if his hemoglobin drops below 10. He was able to get a hold of hematology today and opted to come to the emergency room. He does not have a specific cardiac history but is complaining of chest pains and shortness of breath and on arrival he is tachycardic at 130 bpm and is tachypneic at 22 breaths/min. He is normotensive, afebrile. He does not appear to be in any distress he speaking in full sentences. Initially he did speak with Dr. Mayorga who did report that he just checked his hemoglobin and it was about 10.5. He stated it would be okay from his standpoint to transfuse him 1 unit of blood given that he is symptomatic and he was typed and screened and crossmatched for 1 unit. From a chest pain standpoint we did obtain an EKG upon arrival and this was sinus tachycardia at 107 bpm without sign of ischemic change or dysrhythmia. We did obtain a CBC to assess his hemoglobin and his again his hemoglobin is 9.5 which is about a point lower than previous. He was Hemoccult positive today as well. He does not have an elevated white blood cell count. His renal function and electrolytes appear normal although he does have an elevated glucose at 189 without anion gap. His high-sensitivity troponin turned back at 9. His D-dimer was negative. His chest x-ray on my interpretation appears to show what looked like free air under the right hemidiaphragm on my interpretation and the radiologist did call me to tell me that that if he did not have any recent surgery or instrumentation this would be concerning for pneumoperitoneum. Patient has been given IV fluids and blood is being transfused and his heart rate is now normalized to 91. His respiratory rate is improved to 20. He is still on room air 95%. I would back to discuss the findings with him and his abdominal exam is completely benign he has no pain and from a chest pain standpoint has been very stable. I did obtain a CT of the chest abdomen pelvis with IV contrast which does show pneumatosis of the right colon and free air. There also appears to be air within the mesenteric veins and this there is suspicion for ischemic bowel. At this point we did call Dr. García who was in the OR doing an appendectomy and after he had time to review the CT he recommended transfer of the patient to an outside facility given his complex history. I did obtain a lactic acid which is only 2.1 and the patient remained clinically stable although his CAT scan read and chest x-ray read are concerning. We did speak with Fernanda Springer regarding transfer and we were able to get an accepting surgeon to see the patient. Patient is clinically doing well. He was consented for transfer. He understands the medical severity and the necessity for transfer. His delta troponin came back at 8 which makes ACS unlikely and again he has a negative D-dimer subtle suspected PE. We were able to get a fairly quick transport team and the patient was transported out here in stable condition. 1. Briana-Blackfan anemia 2. Hemochromatosis 3. Chest pain 4. Shortness of breath 5. Perforated ischemic bowel 6. GI bleed 7. dyspnea 8. Blood loss anemia?acute Lab Data Labs: Laboratory Results - last 24 hr 10/01/22 10/01/22 10/01/22 13:25 13:25 13:25 WBC Cancelled Corrected WBC Cancelled RBC Cancelled Hgb Cancelled Hct Cancelled MCV Cancelled MCH Cancelled MCHC Cancelled RDW Std Deviation Cancelled RDW Coeff of Ceci Cancelled Plt Count Cancelled MPV Cancelled Immature Gran % (Auto) Cancelled Neut % (Auto) Cancelled Lymph % (Auto) Cancelled [place] % (Auto) Cancelled Eos % (Auto) Cancelled Baso % (Auto) Cancelled Absolute Neuts (auto) Cancelled Absolute Lymphs (auto) Cancelled Total Counted Cancelled Neutrophils % (Manual) Cancelled Band Neutrophils % Cancelled Lymphocytes % (Manual) Cancelled Monocytes % (Manual) Cancelled Eosinophils % (Manual) Cancelled Basophils % (Manual) Cancelled Metamyelocytes % Cancelled Myelocytes % Cancelled Promyelocytes % Cancelled Blast Cells % Cancelled Plasma Cell % (Manual) Cancelled Other Cells % Cancelled Nucleated RBC % Cancelled Nucleated RBCs/100 WBC Cancelled Differential Comment Cancelled Diff Path Review Cancelled Hypersegmented Neuts Cancelled Atypical Lymphocytes Cancelled Reactive Lymphocytes Cancelled Smudge Cells Cancelled Toxic Granulation Cancelled Toxic Vacuolation Cancelled Dohle Bodies Cancelled [place] Cancelled Platelet Estimate Cancelled Plt Morphology Comment Cancelled RBC Morphology Cancelled Polychromasia Cancelled Hypochromasia Cancelled Poikilocytosis Cancelled Basophilic Stippling Cancelled Anisocytosis Cancelled Microcytosis Cancelled Macrocytosis Cancelled Spherocytes Cancelled Sickle Cells Cancelled Target Cells Cancelled Tear Drop Cells Cancelled Ovalocytes Cancelled Stomatocytes Cancelled [place] Bodies Cancelled [place] Cells Cancelled Bite Cells Cancelled Crenated Cell Cancelled Acanthocytes (Spur) Cancelled Rouleaux Cancelled Schistocytes Cancelled D-Dimer Quant (PE/DVT) 0.28 Sodium 140 Potassium 4.1 Chloride 106 Carbon Dioxide 22.0 Anion Gap 12 BUN 17 Creatinine 1.24 Estim Creat Clear Calc 86.05 Est GFR (MDRD) Af Amer 82 Est GFR (MDRD) Non-Af 68 BUN/Creatinine Ratio 13.7 Glucose 189 H Lactic Acid Calcium 8.4 L Troponin I High Sens Blood Type Antibody Screen Crossmatch 10/01/22 10/01/22 10/01/22 13:25 13:25 13:25 WBC 8.0 Corrected WBC RBC 2.46 L Hgb 9.5 L Hct 29.1 L MCV 118.3 H MCH 38.6 H MCHC 32.6 RDW Std Deviation Not Reportable RDW Coeff of Ceci Not Reportable Plt Count 272 MPV 9.1 Immature Gran % (Auto) Neut % (Auto) Not Reportable Lymph % (Auto) [place] % (Auto) Eos % (Auto) Baso % (Auto) Absolute Neuts (auto) 7.0 Absolute Lymphs (auto) 0.56 L Total Counted 100 Neutrophils % (Manual) 85 H Band Neutrophils % 2 Lymphocytes % (Manual) 7 L Monocytes % (Manual) 2 Eosinophils % (Manual) Basophils % (Manual) Metamyelocytes % 1 Myelocytes % 3 H Promyelocytes % Blast Cells % Plasma Cell % (Manual) Other Cells % Nucleated RBC % Nucleated RBCs/100 WBC 1 Differential Comment Diff Path Review May foll Hypersegmented Neuts Atypical Lymphocytes Reactive Lymphocytes Smudge Cells Toxic Granulation Toxic Vacuolation Dohle Bodies [place] Platelet Estimate ADEQUATE Plt Morphology Comment RBC Morphology Polychromasia 1+ Hypochromasia Poikilocytosis Basophilic Stippling Anisocytosis 3+ Microcytosis Macrocytosis 3+ Spherocytes Sickle Cells Target Cells Tear Drop Cells Ovalocytes Stomatocytes [place] Bodies [place] Cells Bite Cells Crenated Cell Acanthocytes (Spur) Rouleaux Schistocytes D-Dimer Quant (PE/DVT) Sodium Potassium Chloride Carbon Dioxide Anion Gap BUN Creatinine Estim Creat Clear Calc Est GFR (MDRD) Af Amer Est GFR (MDRD) Non-Af BUN/Creatinine Ratio Glucose Lactic Acid Calcium Troponin I High Sens Blood Type O POSITIVE Antibody Screen NEGATIVE Crossmatch See Detail 10/01/22 10/01/22 10/01/22 13:45 15:53 18:09 WBC Corrected WBC RBC Hgb Hct MCV MCH MCHC RDW Std Deviation RDW Coeff of Ceci Plt Count MPV Immature Gran % (Auto) Neut % (Auto) Lymph % (Auto) [place] % (Auto) Eos % (Auto) Baso % (Auto) Absolute Neuts (auto) Absolute Lymphs (auto) Total Counted Neutrophils % (Manual) Band Neutrophils % Lymphocytes % (Manual) Monocytes % (Manual) Eosinophils % (Manual) Basophils % (Manual) Metamyelocytes % Myelocytes % Promyelocytes % Blast Cells % Plasma Cell % (Manual) Other Cells % Nucleated RBC % Nucleated RBCs/100 WBC Differential Comment Diff Path Review Hypersegmented Neuts Atypical Lymphocytes Reactive Lymphocytes Smudge Cells Toxic Granulation Toxic Vacuolation Dohle Bodies [place] Rods Platelet Estimate Plt Morphology Comment RBC Morphology Polychromasia Hypochromasia Poikilocytosis Basophilic Stippling Anisocytosis Microcytosis Macrocytosis Spherocytes Sickle Cells Target Cells Tear Drop Cells Ovalocytes Stomatocytes [place] Bodies Myah Cells Bite Cells Crenated Cell Acanthocytes (Spur) Rouleaux Schistocytes D-Dimer Quant (PE/DVT) Sodium Potassium Chloride Carbon Dioxide Anion Gap BUN Creatinine Estim Creat Clear Calc Est GFR (MDRD) Af Amer Est GFR (MDRD) Non-Af BUN/Creatinine Ratio Glucose Lactic Acid 2.1 H* Calcium Troponin I High Sens 9 8 Blood Type Antibody Screen Crossmatch Radiography Diagnostic Testing: Clinical Impression(s) from Imaging Studies Chest X-Ray 10/01/22 14:10 IMPRESSION: 1. Pneumoperitoneum underneath the right hemidiaphragm is worrisome for perforated bowel unless there was recent abdominal surgery or laparoscopic surgery. Please correlate with operative history. 2. No acute cardiopulmonary pathology. Electronically Signed: Lorne Leal MD at 14:56 EST , ADDENDUM: 10/01/22 1509 IMPRESSION: 1. Pneumoperitoneum underneath the right hemidiaphragm is worrisome for perforated bowel unless there was recent abdominal surgery or laparoscopic surgery. Please correlate with operative history. 2. No acute cardiopulmonary pathology. N.B. : The above Results were Read Back by Lorne Leal MD to Dr. Eric MD, and understanding confirmed on 10/01/2022 15:02:41 (ET). Electronically Signed: Lorne Leal MD at 14:56 EST , Chest/Abdomen/Pelvis CT 10/01/22 15:00 IMPRESSION: Pneumatosis right colon and free air. There also appears to be gas within the mesenteric veins. This is suspicious for ischemic bowel. Bibasilar groundglass opacities are nonspecific and indeterminate for coated maintained. Electronically Signed: Kaden Hu MD at 17:14 EST , ADDENDUM: 10/01/22 1731 IMPRESSION: Pneumatosis right colon and free air. There also appears to be gas within the mesenteric veins. This is suspicious for ischemic bowel. Bibasilar groundglass opacities are nonspecific and indeterminate for coated maintained. N.B. : The above Results were Read Back by Kaden Hu MD to RADHA SANTA PA, and understanding confirmed on 10/01/2022 17:25:15 (ET). Electronically Signed: Kaden Hu MD at 17:14 EST Reading Location ID and State: [facility] / [place] , Service support , <Dr. Sterling Reyes DO - Last Filed: 10/01/22 23:21> Critical Care Time Critical care time (excluding procedures): 30-74 minutes (35), Including time spent:, Discussing w/Patient &/or Family/[employer] Specialist, Discussing w/Consultants, Arranging Admission or Transfer and Performing Direct Patient Care at Bedside Discharge Plan Triage Chief Complaint: Palpitations ED Midlevel Provider: Radha Santa ED Provider: Sterling Reyes Dx/Rx/DC Orders Clinical Impression: Briana-Blackfan anemia, Dyspnea on minimal exertion, Chest pain, Ischemia, bowel Prescriptions: No Action famotidine 20 mg tablet 20 mg PO BID hydroxychloroquine [Plaquenil] 200 mg tablet 200 mg PO BID omeprazole 40 mg capsule,delayed release(DR/EC) 40 mg PO DAILY tramadol 100 mg tablet extended release 24 hr 100 mg PO DAILY citalopram 40 MG tablet 40 mg PO DAILY oxycodone-acetaminophen 1 EACH tablet 1 ea PO Q6H PRN PRN (Reason: Pain 1-10 Or Fever) ascorbic acid (vitamin C) [Vitamin C] 250 mg Tablet 250 mg PO DAILY prednisone 10 mg tablet 40 mg PO DAILY Rx Instructions: Adjust dose as instructed deferasirox [Jadenu] 360 mg Tablet 1,440 mg PO DAILY Rx Instructions: take with water/beverage on empty stomach/w light meal (<7 % fat/<=250 jack); do not take within 1 hr of an aluminum-containing antacid Primary Care Provider: Farooq Pearson Referrals: Farooq Pearson DO [Primary Care Provider] - 3-5 Days Disposition Disposition: Acute Care Hospital Discharge Location: [facility] Discharge Date/Time: 10/01/22 19:30
[2022-10-01 14:39] LABS: D-Dimer Quantitative (DVT/PE) 0.28 FEU/ug/m (0.27-0.49)
[2022-10-01 14:40] LABS: Platelet Estimate ADEQUATE (ADEQ)
[2022-10-01 14:41] LABS: Anisocytosis 3+; Polychromasia 1+
[2022-10-01 14:42] LABS: Macrocytosis 3+
--- NOTE | 2022-10-01 15:00 | CT_ITS ---
We are attempting to reach an attending provider to discuss findings. An addendum with communication details will be sent when the communication is complete. STUDY: CT CHEST, ABDOMEN T PELVIS WITH CONTRAST REASON FOR EXAM: Male, 42 years old. possible bowel perforation, chest pain RADIATION DOSAGE (If Supplied By Facility): CTDIvol = ( 18.81 ) mGy, DLP = ( 1868.15 ) mGycm TECHNIQUE: Transaxial imaging was performed following intravenous administration of IV 100mL Isovue-300. Individualized dose optimization techniques were used for this CT. COMPARISON: No relevant priors. FINDINGS: CHEST Bibasilar groundglass opacities. 3.2 cm pneumatocele within the anterior mediastinum. Normal heart and pericardium. Normal mediastinum. Normal hilar regions. Normal unenhanced pulmonary arteries. Normal aorta arch and descending thoracic aorta. Multiple mild compression fractures and Schmorl''s node disease. ABDOMEN Pneumoperitoneum noted beneath the right hemidiaphragm. The visualized portions of the heart are within normal limits. Normal liver. Normal gallbladder and extrahepatic biliary system. Normal spleen. Normal pancreas. Normal bilateral adrenal glands. Multiple simple bilateral renal cortical cysts measuring up to 1 cm and less. No further follow-up required as a fair simple/benign. Normal visualized stomach. Normal small intestine. Pneumatosis right colon and local free air. The appendix is visualized and appears normal. Normal abdominal aorta. Normal inferior vena cava. Normal retroperitoneum. Fat-containing umbilical hernia. Multiple compression fractures and Schmorl''s node disease, age indeterminate. PELVIS Normal urinary bladder. Bilateral fat-containing inguinal hernias. Normal visualized small intestine. Normal visualized colon. There is no pelvic fluid. There is no pelvic lymphadenopathy or mass lesion. Normal visualized pelvic arteries. Normal osseous structures. CT/CT Chest, Abd, Pel w/Contrast IMPRESSION: Pneumatosis right colon and free air. There also appears to be gas within the mesenteric veins. This is suspicious for ischemic bowel. Bibasilar groundglass opacities are nonspecific and indeterminate for coated maintained. Electronically Signed: Kaden Hu MD at 17:14 EST ,
[2022-10-01 15:03] LABS: Lymphocyte 7 % (19-41); Metamyelocyte 1 % (0-1); Monocyte 2 % (0-10); Myelocyte 3 % (0-0); Neutrophil-Band 2 % (0-5); Neutrophil-Segmented 85 % (47-70); Nucleated Red Bld Cells,Manual 1 % (0-5); Total Cells Counted 100 (MANUAL DIFF)
[2022-10-01 15:04] LABS: Absolute Lymphocyte Count 0.56 X10^3/uL (0.83-4.51)
[2022-10-01 16:03] VITALS: BP 124/77; PULSE 93; RESP 19; O2SAT 97
[2022-10-01 16:18] LABS: Troponin-I HS 8 pg/mL (3.0-78.0)
[2022-10-01 17:09] VITALS: BP 147/100; PULSE 88; RESP 20; O2SAT 93
[2022-10-01 18:04] VITALS: BP 124/78; PULSE 83; RESP 18; O2SAT 96
[2022-10-01 18:52] LABS: Lactic Acid 2.1 mmol/L (0.4-1.9)
--- NOTE | 2022-10-01 19:24 | ED.RN ---
attempt to call report to [facility].
[2022-10-01 20:17] VITALS: BP 147/97; PULSE 91; RESP 20; TEMP 36.7; O2SAT 95
[2022-10-01 22:13] LABS: Reflex Lactate? Y
[2022-10-02 15:25] LABS: Pathologist Review Reviewed
== END 2022-10-01 19:30 | disposition short-term general hospital (02) ==
LOC: ED 14:28
PROVIDERS: Physician Assistant; Emergency Provider Student in an Organized Health Care Education/Training Program; PCP Family Medicine; Visit Provider Student in an Organized Health Care Education/Training Program
DX: D61.01 Constitutional (pure) red blood cell aplasia (principal); K63.1 Perforation of intestine (nontraumatic); R07.9 Chest pain, unspecified; R06.02 Shortness of breath; K92.2 Gastrointestinal hemorrhage, unspecified; M79.7 Fibromyalgia; R00.2 Palpitations; E83.119 Hemochromatosis, unspecified; F17.290 Nicotine dependence, other tobacco product, uncomplicated
CPT/HCPCS: 71045; 71260; 74177; 80048; 82274; 83605; 84484; 85025; 85379; 86850; 86900; 86901; 86920; 87428; 93005; 96365; 99284; Q9967; A4216

== ENCOUNTER → 2022-10-29 | Outpatient (CLI) | payer BC, MEDICARE, SELFPAY ==
[2022-10-29 12:33] LABS: Absolute Lymphocyte Count 1.48 X10^3/uL (0.83-4.51); Absolute Neutrophil Count 6.7 X10^3/uL (2.0-7.7); Basophil# 0.05 X10^3/uL; Basophil% 0.5 % (0-1); Eosinophil# 0.03 X10^3/uL; Eosinophils% 0.3 % (0-5); Hemoglobin 11.4 g/dL (13.0-16.5); Lymphocyte # 1.48 X10^3/ul (0.83-4.51); Lymphocyte % 15.7 % (19-41); Mean Corp Hgb Conc 33.5 g/dL (32-36); Mean Corpuscular Hgb 37.4 pg (27.0-32.0); Mean Corpuscular Volume 111.5 fL (80-94); Mean Platelet Vol. 9.1 fl (6.2-12.0); Monocyte# 0.91 X10^3/uL; Monocyte% 9.7 % (0-10); NRBC Flagged by Analyzer 0.4 % (0-5); Neutrophil # 6.65 X10^3/uL (2.7-7.7); Neutrophil % 70.7 % (47-70); POSITIVE MORPHOLOGY YES; Platelet Count 312 K/mm3 (150-450); Red Blood Count 3.05 M/mm3 (4.6-6.2); White Blood Count 9.4 K/mm3 (4.4-11.0)
[2022-10-29 12:36] LABS: Differential Indicated SCAN CRITERIA MET
[2022-10-29 12:49] LABS: BNP,B-Type NATRIURETIC PEPTIDE 16.1 pg/mL (0-100)
[2022-10-29 13:18] LABS: Anion Gap 7 (5-15); BUN 18 mg/dL (7-18); BUN/Creat Ratio 16.4 RATIO (10-20); Calcium,Total 9.1 mg/dL (8.5-10.1); Chloride 105 mmol/L (98-107); EST Glomerular Filtration Rate 78 mL/min (>60); Est Glom Filt Rate - Afr Amer 95 mL/min (>60); Glucose 116 mg/dL (74-106); Magnesium 2.5 mg/dL (1.6-2.6); Potassium 3.5 mmol/L (3.5-5.1); Sodium Level 140 mmol/L (136-145); Thyroid Stim Hormone (TSH) 0.72 uIU/mL (0.358-3.74)
[2022-10-29 13:42] LABS: Anisocytosis 2+; Differential Comment SCANNED; Hypochromasia 1+; Macrocytosis 1+; Microcytosis 1+
== END | disposition home or self-care (01) ==
LOC: LAB 11:09
PROVIDERS: PCP Family Medicine; Referring Provider Nurse Practitioner Family; Visit Provider Nurse Practitioner Family
DX: R06.00 Dyspnea, unspecified (principal); E83.110 Hereditary hemochromatosis; R00.2 Palpitations; E83.111 Hemochromatosis due to repeated red blood cell transfusions
CPT/HCPCS: 36415; 80048; 83735; 83880; 84443; 85025

== ENCOUNTER → 2022-11-09 | Outpatient (CLI) | payer BC, MEDICARE, SELFPAY ==
--- NOTE | 2022-11-09 08:40 | ECHOD_ITS ---
Reason For Study: Re-evaluate EF, SOB Procedure This was a 2D Doppler, Color Flow transthoracic echocardiogram. Myocardial strain analysis was performed in this exam to aid in the assessment of cardiac function. Exam performed in department. Left Ventricle Normal LV size. Left ventricular systolic function is lower limits of normal. The left ventricular ejection fraction is 50 %. No regional wall motion abnormalities noted. Right Ventricle Normal RV size. Normal systolic function. Atria Normal left atrium. Normal right atrium. Mitral Valve Normal mitral valve. Tricuspid Valve Normal tricuspid valve. Aortic Valve Normal aortic valve. Trisinus/trileaflet aortic valve. Pulmonic Valve Normal pulmonic valve. Great Vessels Normal aortic root. The pulmonary artery is normal size. Normal inferior vena cava. Pericardium/Pleural No pericardial effusion. MMode/2D Measurements & Calculations LVIDd: 5.0 cm IVSd: 1.00 cm Ao root diam: 2.9 cm LVIDs: 3.8 cm LVPWd: 1.1 cm RVDd: 2.7 cm FS: 25.3 % LAV(MOD-bp): 51.8 ml LVAd ap4: 31.7 cm2 SV(MOD-sp4): 45.5 ml LAV(MOD-bp) Indexed: 22.9 ml/m2 LVLd ap4: 9.2 cm LAV(MOD-sp2): 45.1 ml EDV(MOD-sp4): 88.7 ml LAV(MOD-sp4): 54.1 ml EDV(sp4-el): 93.1 ml LVAs ap4: 20.1 cm2 LVLs ap4: 7.8 cm ESV(MOD-sp4): 43.2 ml ESV(sp4-el): 43.6 ml EF(MOD-sp4): 51.3 % EF(sp4-el): 53.2 % SV(sp4-el): 49.6 ml LA A4 area: 18.9 cm2 LA dimension(2D): 4.5 cm RA A4 area: 9.9 cm2 Time Measurements MV dec time: 0.20 sec Doppler Measurements & Calculations MV E max kaushal: 53.8 cm/sec Lat Peak E' Kaushal: 9.9 cm/sec Med Peak E' Kaushal: 7.2 cm/sec MV A max kaushal: 65.2 cm/sec E/E' lat: 5.5 E/E' med: 7.5 MV E/A: 0.82 Ao V2 max: 129.5 cm/sec LV V1 max: 114.3 cm/sec MV dec slope: 274.9 cm/sec2 Ao max P.7 mmHg LV V1 max P.2 mmHg Ao V2 mean: 99.2 cm/sec Ao mean P.3 mmHg Ao V2 VTI: 24.9 cm PA V2 max: 112.1 cm/sec ECHO/Echo Complete Interpretation Summary Normal LV size. Left ventricular systolic function is lower limits of normal. The left ventricular ejection fraction is 50 %. The global longitudinal strain is borderline abnormal. The global longitudinal strain = -15.9% (abnormal). Ordering Physician: Antonio Suresh Referring Physician: Farooq Pearson Performed By: Abbey Suresh, GEGE, RVT
== END | disposition home or self-care (01) ==
PROVIDERS: PCP Family Medicine; Referring Provider Nurse Practitioner Family; Visit Provider Nurse Practitioner Family
DX: E83.110 Hereditary hemochromatosis (principal); E83.111 Hemochromatosis due to repeated red blood cell transfusions; R06.02 Shortness of breath; R00.2 Palpitations
CPT/HCPCS: 93306

== ENCOUNTER → 2023-01-14 | Outpatient (CLI) | payer BC, MEDICARE, SELFPAY ==
--- NOTE | 2023-01-14 14:14 | STRESSREP ---
Stress Test Report Exercise myocardial perfusion stress test. 42-year-old man with a history of supraventricular tachycardia Stress protocol: Resting EKG demonstrates normal sinus rhythm with a rate of 63 bpm resting blood pressure is 102/70 mmHg. The patient exercised according to the regular Hayden protocol for a total duration of 5 minutes attaining a maximum heart rate of 164 bpm which was 91% of maximum predicted heart rate; the maximum workload was 7 metabolic equivalents. At rest there were no ST or T wave changes noted to suggest ischemia and at peak exercise upsloping ST changes only were noted which did not meet the criteria for ischemia. No clinical angina was noted the test was terminated due to the target heart rate being achieved/fatigue. The peak blood pressure was 118/68 mmHg. Rate-pressure product was 19,300. Myocardial perfusion protocol. 14.5 mCi of technetium 99m sestamibi was injected at rest. The patient exercised according to regular Hayden protocol for total duration of 5 minutes and at peak exercise 44.4 mCi of technetium 99m sestamibi was injected stress images were obtained stress and rest images were reconstructed in comparing the short axis vertical long and horizontal long axis. Gated images were also obtained. Perfusion SPECT analysis: Review of the stress images demonstrate normal uptake of tracer noted in all areas of the myocardium. The resting images similarly demonstrate normal uptake of tracer noted in all areas of the myocardium. No areas of reversibility are noted to suggest ischemia no previous infarct was noted. Gated SPECT analysis: The gated ejection fraction is 56%. Conclusion: Normal exercise myocardial perfusion stress test at a moderate workload Preserved ejection fraction.
== END | disposition home or self-care (01) ==
PROVIDERS: PCP Family Medicine; Referring Provider Nurse Practitioner Gerontology; Visit Provider Nurse Practitioner Gerontology
DX: R94.31 Abnormal electrocardiogram [ECG] [EKG] (principal); I47.1 Supraventricular tachycardia
CPT/HCPCS: 78452; 93017; A9500; A4216

== ENCOUNTER → 2023-08-08 | Outpatient (CLI) | payer BC, MEDICARE, SELFPAY ==
--- NOTE | 2023-08-08 17:10 | RAD_ITS ---
STUDY: X-RAY - PELVIS REASON FOR EXAM: Male, 43 years old. PELVIS PAIN/HIP PAIN TECHNIQUE: One view of the pelvis was obtained. COMPARISON: None. FINDINGS: There is a non-specific bowel gas pattern. Normal visualized soft tissue structures. Normal bilateral iliac wings, sacroiliac joints and visualized sacrum. Nondisplaced fracture along the medial aspect of the left superior and inferior pubic rami. Normal pubic symphysis. Normal ischial tuberosities. Sclerosis of the right femoral head. Normal right acetabulum. Normal right hip joint. Avascular necrosis should be ruled out. Sclerosis of the left femoral head. Normal left acetabulum. Normal left hip joint. Avascular necrosis should be ruled out. RAD/Hips B/L min 2 views w/ Pelvis IMPRESSION: Nondisplaced fractures involving the medial aspect of the left superior and inferior pubic rami. Sclerosis of the femoral heads bilaterally. Avascular necrosis should be ruled out. Electronically Signed: Michael Miller MD at 13:19 EST ,
[2023-08-08 17:35] LABS: Color, Urine Yellow (Yellow); Glucose, Dipstick Normal (Normal); Ketone-Dipstick Negative (Negative); Leukocyte Esterase-Dipstick 25 /ul (Negative); Nitrite-Dipstick Negative (Negative); Occult Blood-Urine 10 /ul (Negative); Protein-Dipstick 15 mg/dl (Negative); Urine Bilirubin Dipstick Negative (Negative); Urine Clarity Clear (Clear); Urine Urobilinogen Normal (Normal)
[2023-08-08 17:46] LABS: Amphetamine Urine VISTA NEGATIVE (<1000 ng/mL); Barbiturate Urine VISTA NEGATIVE (< 200 ng/mL); Benzodiazepine Urine VISTA NEGATIVE (< 200 ng/mL); Cocaine Urine VISTA NEGATIVE (< 300 ng/mL); Ecstacy Urine VISTA NEGATIVE (< 500 ng/mL); Methadone Urine VISTA NEGATIVE (< 300 ng/mL); PCP Urine VISTA NEGATIVE (< 25 ng/mL); THC Urine VISTA NEGATIVE (< 50 ng/mL); Vista UDS pH Range 6
[2023-08-08 18:27] LABS: Anion Gap 6 (5-15); BUN 19 mg/dL (7-18); BUN/Creat Ratio 17.8 RATIO (10-20); Calcium,Total 8.8 mg/dL (8.5-10.1); Chloride 103 mmol/L (98-107); Creatinine, Serum 1.07 mg/dL (0.70-1.30); EST Glomerular Filtration Rate 80 mL/min (>60); Est Glom Filt Rate - Afr Amer 97 mL/min (>60); Glucose 102 mg/dL (74-106); Sodium Level 138 mmol/L (136-145)
== END | disposition home or self-care (01) ==
PROVIDERS: PCP Family Medicine; Referring Provider Family Medicine; Visit Provider Anesthesiology
DX: R10.2 Pelvic and perineal pain (principal); S32.512A Fracture of superior rim of left pubis, initial encounter for closed fracture; D64.9 Anemia, unspecified; Z51.81 Encounter for therapeutic drug level monitoring; X58.XXXA Exposure to other specified factors, initial encounter
CPT/HCPCS: 36415; 73521; 80048; 80307; 81002

== ENCOUNTER → 2023-11-18 | Outpatient (CLI) | payer MEDICARE, SELFPAY ==
--- NOTE | 2023-11-18 10:51 | MRI_ITS ---
STUDY: MR PELVIS WITHOUT CONTRAST REASON FOR EXAM: Male, 43 years old. EVAL AVASCULAR NECROSIS FEMORAL HEADS TECHNIQUE: Standardized fat and water weighted pulse sequences were obtained in all 3 orthogonal planes. COMPARISON: Bilateral hip x-ray dated August 08, 2023. CT of abdomen and pelvis dated October 01, 2022 FINDINGS: RIGHT HIP Redemonstration of mild subchondral sclerosis in the proximal aspect of the right femoral head compatible with mild avascular necrosis. There is no demonstrated femoral head collapse or remodeling or fragmentation or loose bodies. Normal hip joint without articular joint space narrowing. Normal right acetabulum. Normal right labrum. Normal right femoral neck and intratrochanteric region. Normal right gluteus minimus, medius and iliopsoas tendons and distal insertions. Normal right superior and inferior pubic rami. Normal right pubic symphysis. Normal right ischial tuberosity. Normal origin of the right hamstring tendons. Normal visualized right iliac wing, sacroiliac joint, and sacral ala. Normal visualized soft tissue structures of the pelvis. LEFT HIP Redemonstration of mild subchondral sclerosis in the proximal aspect of the left femoral head compatible with mild avascular necrosis. There is no demonstrated femoral head collapse or remodeling or fragmentation or loose bodies. Acute nondisplaced small linear fractures in the left acetabular roof redemonstrated with surrounding marrow edema. There is an actively healing fracture of the lateral aspect of the left superior pubic ramus also with some reactive reparative edema. A second fracture is present at the medial aspect of the left superior pubic ramus at the articulation with the pubic symphysis resulting and a small amount of fluid at the fracture site as well as moderate edema of the abductor muscles connected to the ramus. Small bilateral hip joint effusions are present. Normal left hip joint without articular joint space narrowing. Normal left acetabulum. Normal left labrum. Normal left femoral neck and intratrochanteric region. Normal left gluteus minimus, medius and iliopsoas tendons and distal insertions. Normal left inferior pubic ramus. There is moderate tendinosis and partial tearing of the insertion of the left hamstring tendon on the ischial tuberosity. Normal visualized left iliac wing, sacroiliac joint, and sacral ala. Normal visualized soft tissue structures of the pelvis. Mild patchy stress edema is also present in the bilateral sacral ala. Normal urinary bladder. Normal visualized small intestine. Normal visualized colon. There is no pelvic fluid. There is no pelvic mass lesion or lymphadenopathy. Normal visualized pelvic arteries. Normal osseous structures. Normal abdominal wall. MRI/Pelvis (Routine) IMPRESSION: 1. Subacute fracture of the left acetabular roof 2. Actively healing fracture of the lateral and medial aspects of the left superior pubic ramus with adjacent intramuscular edema 3. 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 There is moderate tendinosis and partial tearing of the insertion of the left hamstring tendon on the ischial tuberosity. 5. Stress edema in the bilateral sacral ala. Electronically Signed: Freddie Jacobsen MD at 14:58 EST ,
== END | disposition home or self-care (01) ==
PROVIDERS: PCP Family Medicine; Referring Provider Anesthesiology; Visit Provider Anesthesiology
DX: M87.851 Other osteonecrosis, right femur (principal); M87.852 Other osteonecrosis, left femur; S32.512D Fracture of superior rim of left pubis, subsequent encounter for fracture with routine healing; X58.XXXD Exposure to other specified factors, subsequent encounter
CPT/HCPCS: 72195

== ENCOUNTER → 2024-03-04 | Outpatient (CLI) | payer MEDICARE, MEDICAID, SELFPAY | END | disposition home or self-care (01) | LOC: SL 20:10 | PROVIDERS: PCP Family Medicine; Referring Provider Family Medicine; Visit Provider Family Medicine | DX: G47.10 Hypersomnia, unspecified (principal) | CPT/HCPCS: 95810 ==

== ENCOUNTER → 2024-03-18 | Outpatient (CLI) | payer MEDICARE, MEDICAID, SELFPAY ==
--- NOTE | 2024-03-18 12:27 | BD_ITS ---
STUDY: DUAL ENERGY X-RAY ABSORPTIOMETRY / DXA REASON FOR EXAM: Male, 44 years old. Z79.52 TECHNIQUE: Bone Mineral Density (BMD) measurements of lumbar spine and right hip were obtained. COMPARISON: Comparison is made with prior study July 25, 2017. FINDINGS: Lumbar Spine (L1-L4): g/cm2 (0.902) / T-score (-1.7) / Z-score (-1.6) Findings are suggestive of osteopenia with a moderate fracture risk. Right Femur Total: g/cm2 (0.775) / T-score (-1.7) / Z-score (-1.5) Right Femoral Neck: g/cm2 (0.680) / T-score (-1.8) / Z-score (-1.3) The T-Scores on the most recent prior examination were: Lumbar Spine (L1-L4): There has been worsening of bone density since the previous examination. Right Femur Total: which represents an improvement of 2.7%. BD/Dexa Bone Density Study IMPRESSION: The patient is considered osteopenic as outlined below according to World Ramana Organization (WHO) criteria with a moderate fracture risk. There has been improvement of bone density since the previous examination. Reference Information: The T-score is the number of standard deviations above or below the standard which is normal for young adults at their peak bone mineral density. The World Health Organization (WHO) interprets the T-scores as follows: Above -1 Normal bone density Between -1 and -2.5 Osteopenia Equal to / or below -2.5 Osteoporosis As a practical clinical guideline, osteopenia may be graded as follows: Mild -1 through -1.5 Moderate -1.6 through -2.0 Severe -2.1 through -2.4 The Z-score is the number of standard deviations above or below age-matched controls. A Z-score of less than -1.5 would be considered abnormal. References: 1. NIH Osteoporosis and Related Bone Diseases www osteo.org 2. International Society for Clinical Densitometry www iscd.org 3. National Osteoporosis Foundation www nof.org Electronically Signed: Michael Miller MD at 12:19 EDT ,
== END | disposition home or self-care (01) ==
LOC: OPBD 12:22
PROVIDERS: PCP Family Medicine; Referring Provider Family Medicine; Visit Provider Family Medicine
DX: M81.0 Age-related osteoporosis without current pathological fracture (principal); Z79.52 Long term (current) use of systemic steroids
CPT/HCPCS: 77080

== ENCOUNTER → 2024-05-18 | Outpatient (CLI) | payer MEDICARE, MEDICAID, SELFPAY ==
--- NOTE | 2024-05-18 07:44 | ECHOD_ITS ---
Reason For Study: IRON OVERLOAD Procedure This was a 2D Doppler, Color Flow transthoracic echocardiogram. Exam performed in department. Left Ventricle Normal LV size. The left ventricular ejection fraction is 50 %. Stage 1 diastolic dysfunction. No regional wall motion abnormalities noted. Right Ventricle Normal RV size. Normal systolic function. Atria Normal left atrium. Normal right atrium. Mitral Valve Normal mitral valve. Tricuspid Valve Normal tricuspid valve. Unable to estimate RV systolic pressure due to inadequate jet, pulmonary artery pressure probably normal. Aortic Valve Normal aortic valve. Trisinus/trileaflet aortic valve. Pulmonic Valve Normal pulmonic valve. Great Vessels Normal aortic root. The pulmonary artery is normal size. Normal inferior vena cava. Pericardium/Pleural No pericardial effusion. MMode/2D Measurements & Calculations LVIDd: 4.7 cm IVSd: 1.2 cm LVOT diam: 2.4 cm LVIDs: 4.0 cm LVPWd: 0.84 cm LVOT area: 4.5 cm2 RVDd: 3.2 cm FS: 16.2 % Ao root diam: 2.9 cm LAV(MOD-bp): 51.2 ml LVAd ap4: 36.8 cm2 LAV(MOD-bp) Indexed: 23.8 ml/m2 LVLd ap4: 9.8 cm LAV(MOD-sp2): 37.9 ml EDV(MOD-sp4): 114.4 ml LAV(MOD-sp4): 60.2 ml EDV(sp4-el): 117.6 ml LVAs ap4: 24.4 cm2 LVLs ap4: 8.7 cm ESV(MOD-sp4): 63.1 ml ESV(sp4-el): 58.1 ml EF(MOD-sp4): 44.9 % EF(sp4-el): 50.6 % SV(MOD-sp4): 51.3 ml SV(sp4-el): 59.5 ml LA A4 area: 20.8 cm2 LA dimension(2D): 4.4 cm RA A4 area: 17.1 cm2 Time Measurements MV dec time: 0.22 sec Doppler Measurements & Calculations MV E max kaushal: 52.4 cm/sec Lat Peak E' Kaushal: 11.2 cm/sec Med Peak E' Kaushal: 6.9 cm/sec MV A max kaushal: 63.3 cm/sec E/E' lat: 4.7 E/E' med: 7.5 MV E/A: 0.83 MV V2 max: 68.8 cm/sec Ao V2 max: 105.0 cm/sec MV max P.9 mmHg MV dec slope: 301.1 cm/sec2 Ao max P.4 mmHg MV V2 mean: 42.4 cm/sec Ao V2 mean: 72.7 cm/sec MV mean P.79 mmHg Ao mean P.4 mmHg MV V2 VTI: 21.5 cm Ao V2 VTI: 21.0 cm AV (velocity ratio): 0.99 MVA(VTI): 4.4 cm2 CONCHA(I,D): 4.5 cm2 CONCHA(V,D): 4.8 cm2 LV V1 max: 111.1 cm/sec SV(LVOT): 94.5 ml PA V2 max: 83.8 cm/sec LV V1 max P.9 mmHg PA V2 mean: 66.8 cm/sec LV V1 mean P.6 mmHg LV V1 mean: 74.7 cm/sec LV V1 VTI: 20.8 cm ECHO/Echo Complete Interpretation Summary Normal LV size. The left ventricular ejection fraction is 50 %. Stage 1 diastolic dysfunction. Compared to previous study, the left ventricular systolic function is the same. . Structurally normal valves. Ordering Physician: Antonio Suresh Referring Physician: Antonio Suresh Performed By: Zenaida Griffith RCS
== END | disposition home or self-care (01) ==
LOC: CVS 07:44
PROVIDERS: PCP Family Medicine; Referring Provider Nurse Practitioner Family; Visit Provider Nurse Practitioner Family
DX: E83.111 Hemochromatosis due to repeated red blood cell transfusions (principal); E83.110 Hereditary hemochromatosis
CPT/HCPCS: 93306

== ENCOUNTER → 2024-06-26 | Outpatient (CLI) | payer MEDICARE, MEDICAID, SELFPAY ==
--- NOTE | 2024-06-26 08:35 | RAD_ITS ---
STUDY: X-RAY - PELVIS AND LEFT HIP REASON FOR EXAM: Male, 44 years old. PAIN TECHNIQUE: 3 views of the pelvis and hip. COMPARISON: 08/08/2023 FINDINGS: There is a non-specific bowel gas pattern. Normal visualized soft tissue structures. Normal bilateral iliac wings, sacroiliac joints and visualized sacrum. Normal bilateral superior and inferior pubic rami. Healed fracture of the left pubic bone with callus formation. Normal bilateral ischial tuberosities. Subtle ill-defined sclerosis of the left femoral head consistent with known avascular necrosis. No obvious collapse. Normal acetabulum. Normal hip joint. RAD/HIP, UNI W/ Pelvis 2-3 Views IMPRESSION: Known avascular necrosis without collapse. Electronically Signed: Jose Juan Rea MD at 9:24 EDT ,
--- NOTE | 2024-06-26 08:35 | RAD_ITS ---
STUDY: X-RAY - UNILATERAL RIBS ( LEFT ) WITH CHEST REASON FOR EXAM: Male, 44 years old. PAIN TECHNIQUE - RIBS: 4 view(s) of the ribs. TECHNIQUE - CHEST: Single PA view of the chest. COMPARISON: 10/01/2022 FINDINGS - RIBS: Multiple healed left rib fractures. No obvious acute displaced rib fracture. FINDINGS - CHEST: The lungs are clear and expanded. There is no demonstrated pleural abnormality. Normal size heart. Normal mediastinum and keny. Normal visualized pulmonary arteries. Normal visualized aortic arch and descending thoracic aorta. Normal visualized thoracic spine. Normal visualized ribs, clavicles, and shoulders. There is no demonstrated abnormality of the visualized soft tissue structures of the upper abdomen. RAD/Ribs Uni Min 3V w/PA Chest IMPRESSION: RIBS: Multiple healed left rib fractures. No obvious acute displaced rib fracture. CHEST: Normal x-ray examination of the chest. Electronically Signed: Jose Juan Rea MD at 9:26 EDT ,
== END | disposition home or self-care (01) ==
LOC: MTRAD 08:32
PROVIDERS: PCP Family Medicine; Referring Provider Family Medicine; Visit Provider Family Medicine
DX: R07.81 Pleurodynia (principal); M25.552 Pain in left hip
CPT/HCPCS: 71101; 73502

== ENCOUNTER → 2024-11-25 | Outpatient (CLI) | payer MEDICARE, MEDICAID, SELFPAY ==
[2024-11-25 13:13] LABS: Anion Gap 12 (5-15); BUN 17 mg/dL (4-19); BUN/Creat Ratio 15.3 RATIO (10-20); Calcium,Total 8.7 mg/dL (7.6-11.0); Chloride 107 mmol/L (98-108); Creatinine, Serum 1.08 mg/dL (0.70-1.20); EST Glomerular Filtration Rate 87 (>60); Glucose 83 mg/dL (70-99); Magnesium 2.2 mg/dL (1.5-2.2); Potassium 4.1 mmol/L (3.3-5.1); Sodium Level 140 mmol/L (133-145)
[2024-12-01 11:08] LABS: Testosterone, Free 10.04 ng/dL (5.00-21.00); Testosterone, Total 324 ng/dL (264-916)
== END | disposition home or self-care (01) ==
PROVIDERS: Nurse Practitioner Family; PCP Family Medicine; Visit Provider Family Medicine
DX: R53.83 Other fatigue (principal); E83.110 Hereditary hemochromatosis; E83.111 Hemochromatosis due to repeated red blood cell transfusions
CPT/HCPCS: 36415; 80048; 83735; 84402; 84403

== ENCOUNTER → 2024-11-26 | Outpatient (CLI) | payer MEDICARE, MEDICAID, SELFPAY ==
--- NOTE | 2024-11-26 14:44 | RAD_ITS ---
PROCEDURE: THORACIC SPINE 2 VIEWS REASON FOR EXAM: Pain, compression fracture TECHNIQUE: Two views of the thoracic spine COMPARISON: None. FINDINGS: See impression RAD/Thoracic Spine 2 Views IMPRESSION: Mild to severe compression fracture deformities throughout a majority of the vi sualized thoracic vertebrae, age indeterminate. Consider further assessment with MRI to determine acuity. No significant anter o or retrolisthesis. Minimal dextroscoliosis. Visualized lungs are clear. Reading Location: [facility]
--- NOTE | 2024-11-26 14:44 | RAD_ITS ---
PROCEDURE: Lumbar spine radiographs REASON FOR EXAM: Pain, compression fractures TECHNIQUE: Four views of the lumbar spine COMPARISON: None FINDINGS: See impression RAD/L/S Spine Min 4 Views IMPRESSION: [id number] compression fractures of the superior endplates of all lumbar vertebrae, greatest at L1 and L2. Trace retrolisthesis of L2-3 and L3-4. Minimal levoscoliosis. Mild/moderate multile josep disc space narrowing. [id number] facet arthropathy from L3 through S1. Sacroiliac joints are within normal limits. Reading Location: [facility]
== END | disposition home or self-care (01) ==
LOC: MTRAD 14:43
PROVIDERS: PCP Family Medicine; Referring Provider Family Medicine; Visit Provider Family Medicine
DX: M54.9 Dorsalgia, unspecified (principal)
CPT/HCPCS: 72070; 72110

== ENCOUNTER 2024-12-19 23:18 | Emergency (ER) | payer MEDICARE, MEDICAID, SELFPAY ==
[2024-12-19 23:18] VITALS: BP 163/96; PULSE 120; RESP 16; TEMP 36.6; O2SAT 98; BMI 27.1
[2024-12-19 23:19] VITALS: BP 163/96; PULSE 120; RESP 18; O2SAT 98; BMI 27.1
[2024-12-19 23:22] VITALS: BP 138/92; PULSE 112; RESP 21; TEMP 36.7; O2SAT 97
--- NOTE | 2024-12-19 23:22 | EKG12_ITS ---
Test Reason : STROKE Blood Pressure : */* mmHG Vent. Rate : 108 BPM Atrial Rate : 108 BPM P-R Int : 146 ms QRS Dur : 84 ms QT Int : 340 ms P-R-T Axes : 51 57 76 degrees QTcB Int : 455 ms Sinus tachycardia Nonspecific ST and T wave abnormality Abnormal ECG When compared with ECG of 01-Oct-2022 13:14, Nonspecific T wave abnormality, worse in Lateral leads Confirmed by Linwood Mims ([id number]), assistant film editor YARY CARDONA ([id number]) on 12/24/2024 10:02:45 AM Referred By: Confirmed By: Linwood Mims
--- NOTE | 2024-12-19 23:22 | CT_ITS ---
PROCEDURE: STROKE BRAIN/HEAD WITHOUT CONT 12/19/2024 REASON FOR EXAM: NEURO DEFICIT, ACUTE, STROKE SUSPECTED TECHNIQUE: Head CT without intravenous contrast. Coronal and Sagittal reconstruction series were provided. One or more dose reduction techniques were used (e.g., Automated exposure control, adjustment of the mA and/or kV according to patient size, use of iterative reconstruction technique. COMPARISON: None FINDINGS: No acute intracranial hemorrhage. A subtle area of low attenuation is identified centered about the right posterior limb of the internal capsule measuring 2.9 x 1.9 cm.The ventricles and sulci are normal in appearance. The osseous structures are unremarkable. No soft tissue abnormality identified. Probable mucous retention cyst in the right maxillary sinus. CT/STROKE Brain/Head without Cont IMPRESSION: 1. Subtle rounded area of hypoattenuation centered about the right posterior li mb of the internal capsule measuring up to 2.9 cm, possibly representing a subacute infarction versus chronic ischemic microangiop athy. 2. No acute intracranial hemorrhage. Findings discussed with the ER physician at 1140 hours on 12/19/2024 Reading Location: [facility]
--- NOTE | 2024-12-19 23:23 | CT_ITS ---
PROCEDURE: STROKE CTA HEAD AND NECK W/CON 12/19/2024 REASON FOR EXAM: NEURO DEFICIT, ACUTE, STROKE SUSPECTED TECHNIQUE: CTA imaging of the head and neck from the aortic arch to the skull vertex with intravenous contrast. Coronal and Sagittal reconstruction series were provided. 3D, 3D post processing, 3D reconstructions, Maximum intensity projection (MIPs) Volume rendering and Shaded surface rendering was provided. One or more dose reduction techniques were used (e.g., Automated exposure control, adjustment of the mA and/or kV according to patient size, use of iterative reconstruction technique). COMPARISON: Noncontrast CT of the head from the same day FINDINGS: CTA HEAD FINDINGS: Internal carotid arteries: No acute thrombus or dissection. Vertebrobasilar arteries: No acute thrombus or dissection. Intracranial arteries: Abrupt termination of the insular branch of the posterior M2 segment of the right MCA (image 398 of series 2), most consistent with a thrombogenic large vessel occlusion. Venous sinuses: Unremarkable. CTA NECK FINDINGS: Aorta and proximal great vessels: No acute thrombus or dissection. Common carotid arteries: There is an acute focal nonocclusive thrombus in the right common carotid artery seen on image 90 of series 2, worrisome for an unstable clot. Internal carotid arteries: No acute thrombosis or dissection. Vertebral arteries: No acute thrombosis or dissection. Bones: Unremarkable. Soft tissues: Unremarkable. CT/STROKE CTA Head AND Neck W/Con IMPRESSION: 1. Acute large vessel occlusion involving the posterior M2 segment of the right MCA (image 398 of series 2). 2. Acute nonobstructive thrombus in the right common carotid artery, worrisome for an unstable clot. Findings reported to the ER physician at 1159 hours on 12/20/2024. Reading Location: [facility]
--- NOTE | 2024-12-19 23:40 | NURSING ---
2234: Pt returned to room form CT, [facility] called and notified pt back in room.
[2024-12-19 23:41] VITALS: BP 157/94; PULSE 114; RESP 24; TEMP 36.8; O2SAT 96
[2024-12-19 23:43] LABS: Partial Thromboplast Time 22.2 Seconds (24.1-36.2); Prothrombin Time (Protime)PT. 13.6 SECONDS (11.7-14.9)
[2024-12-19 23:52] VITALS: BP 157/91
[2024-12-19] MEDS: TENECTEPLASE 3268.8 MG IV (23:52)
--- NOTE | 2024-12-19 23:52 | EDS_ITS ---
HPI History of Present Illness Chief Complaint: Stroke Alert Informant: patient and spouse/S.O. Narrative Narrative: Patient is a 44-year-old male with past medical history of sleep apnea as well as supraventricular tachycardia and chronic anemia. He states roughly 30 minutes prior to arrival he was going to [employer] to get food. He then noticed that he was having left arm weakness and his girlfriend noted facial droop and with concern for stroke he comes in for evaluation. Patient denies any history of bleeding disorder or blood thinner use. He denies any recent head trauma. He denies any recent surgical procedures. 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 Hypotension Lumbar herniated disc Fibromyalgia Substance abuse Rheumatoid arthritis Hereditary hemochromatosis Osteopenia Depression History of blood transfusion Hemochromatosis associated with compound heterozygous mutation in HFE gene GERD (gastroesophageal reflux disease) Lymphopenia 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 Home Medications ?Medication ?Instructions ?Recorded ?Last Taken ?Type citalopram 40 mg tablet 40 mg PO DAILY 05/29/17 Unkn own History famotidine 20 mg tablet 20 mg PO BID 02/18/20 05:30 History hydroxychloroquine 200 mg tablet 200 mg PO BID 1 Unknown History (Plaquenil) omeprazole 40 mg capsule,delayed 40 mg PO DAILY Unknown History release tramadol 100 mg tablet,extended 100 mg PO DAILY Unknown History release 24 hr prednisone 10 mg tablet 40 mg PO DAILY 07/05/22 Unkn own History metoprolol tartrate 50 mg tablet 50 mg PO BID #180 tab s 02/20/24 Unknown Rx Allergy/AdvReac Type Severity Reaction Status Date / Time No Known Allergies Allergy Verified 12/19/24 23:19 Family History Father Pancreatic cancer Lung cancer CVA (cerebral vascular accident) Mother Ovarian cancer Lung cancer CVA (cerebral vascular accident) Briana-Blackfan anemia Son Briana-Blackfan anemia Uncle Colon cancer Surgical History Hx of exploratory laparotomy History of bone marrow biopsy (2014) [place] teeth extracted History of colonoscopy Social History Smoking Status: Current every day smoker tobacco type: cigarettes alcohol intake: never substance use type: other details: ocaasional marijuana use ROS ROS ED Constitutional Constitutional ED: Denies chills or fever(s) Eyes Eyes: Denies blurry vision or change in vision ENT ENT ED: Denies rhinorrhea or sore throat Cardiovascular Cardiovascular: Reports racing heartbeat; Denies chest pain or palpitations Respiratory/Chest Respiratory/Chest: Denies cough or dyspnea Gastrointestinal Gastrointestinal: Denies abdominal pain, diarrhea, nausea or vomiting Genitourinary Genitourinary ED: Denies dysuria Musculoskeletal Musculoskeletal: Denies myalgias Integumentary Denies rash Neurologic Neurologic: Reports paresthesias and weakness; Denies headache(s) Hematologic/Lymphatic Hematologic/Lymphatic: Reports anemia; Denies easy bleeding or easy bruising EXAM Physical Exam Const Vital Signs: 12/19/24 23:18 12/19/24 23:19 12/19/24 23:22 Temperature 98 F 98.1 F Temperature Source Oral Oral Pulse Rate 120 H 120 H 112 H Respiratory Rate 16 18 21 H Blood Pressure 163/96 H 163/96 H 138/92 H Blood Pressure Mean 118 118 107 Blood Pressure Source Blood Pressure Position Blood Pressure Location Pulse Ox 98 98 97 Oxygen Delivery Method Room Air Room Air Room Air 12/19/24 23:31 12/19/24 23:41 12/19/24 23:52 Temperature 98.2 F Temperature Source Oral Pulse Rate 114 H Respiratory Rate 24 H Blood Pressure 157/94 H 157/91 H Blood Pressure Mean 115 Blood Pressure Source Monitor Blood Pressure Position Semi-Fowlers Blood Pressure Location Left Arm Pulse Ox 96 Oxygen Delivery Method Room Air Room Air 12/19/24 23:56 Temperature 98.1 F Temperature Source Oral Pulse Rate 109 H Respiratory Rate 19 H Blood Pressure 139/80 H Blood Pressure Mean 99 Blood Pressure Source Monitor Blood Pressure Position Semi-Fowlers Blood Pressure Location Left Arm Pulse Ox 96 Oxygen Delivery Method Room Air Positive well nourished, well developed and obese General Appearance ED: well developed Nutritional Appearance: obese HEENT Reports moist mucous membranes HEENT Narrative: Normocephalic atraumatic No tongue or cheek biting to suggest seizure activity Eyes PERRL and EOMs intact bilaterally General Eye ED: Negative for pale conjunctiva or scleral icterus Neck supple Neck Narrative: No nuchal rigidity or meningeal signs Resp normal respiratory effort and clear to auscultation bilaterally Cardio regular rhythm Rate: tachycardic and other Other Details: Tachycardic rate with regular rhythm No murmurs rubs or gallops Radial and carotid pulses are equal and symmetric GI normal to inspection, nondistended, normoactive bowel sounds, non-tender, non- distended and no masses GI Narrative: No voluntary guarding or rigidity or pulsatile mass Auscultation: normoactive bowel sounds Palpation: soft Extremity Extremity Narrative: No bony deformity or joint effusion noted Neuro oriented x3, No CN's II-XII intact bilaterally and No no sensory deficits noted Neuro Narrative: GCS of 15 Patient has a left-sided facial droop/facial palsy which he receives a stroke scale score value of 2. He has flaccid paralysis of his left arm for which she receives a stroke scale value of 4. Patient has mild drift of his left leg for which he receives a stroke scale score of 1. Patient also receives a stroke scale score value of 1 for ataxia and a value of 1 for mild to moderate sensory loss. Total stroke scale score of 9 Sensorium / Orientation: alert Motor Exam: Negative for strength 5/5 throughout Psych mental status grossly normal Skin no rashes or lesions noted MDM MDM MDM Narrative Medical decision making narrative: Patient arrived to the ER hypertensive and tachycardic but otherwise afebrile. Patient reported sudden onset of unilateral weakness roughly 30 minutes prior to arrival. Based on his left facial droop and left arm weakness his symptoms were consistent with an acute CVA so stroke alert was activated. Based on the significant deficits present there is concern for an LVO so patient underwent a CT and CTA of the head and neck. CT revealed no acute hemorrhage. As the patient is present within the timeframe for TNK and he has a large stroke scale score of 9 and no bleed the decision was made to provide TNK. The patient's CTA revealed a right M3 MCA branch occlusion consistent with his symptoms. It also showed a loose thrombus and his carotid. The patient was evaluated by [facility] neurology Dr. Reich. She agrees that based on his significant symptoms and timeframe and lack of contraindications that TNK is appropriate. She states t hat recent literature does not suggest he requires a thrombectomy however and asked that patient potentially stay at this institution. I discussed the case with the hospitalist but he feels that with his young age significant deficit from the acute CVA and rare disease of Briana-Blackfan anemia that he would be better served at a tertiary center. I do agree with this recommendation. Therefore [facility] was contacted once again and Dr. Reich does agree to accept the patient. Therefore he will be transferred to [facility] for continued stroke evaluation History & Record Review Discussion w/independent historian: Patient and Significant other Lab Data Attestation: I reviewed the patient's lab results. Labs: Laboratory Results - last 24 hr 12/19/24 23:22 PT 13.6 INR 1.0 APTT 22.2 L Radiography Diagnostic Testing: Clinical Impression(s) from Imaging Studies Brain CT 12/19/24 23:22 IMPRESSION: 1. Subtle rounded area of hypoattenuation centered about the right posterior limb of the internal capsule measuring up to 2.9 cm, possibly representing a subacute infarction versus chronic ischemic mi croangiopathy. 2. No acute intracranial hemorrhage. 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, SVT (supraventricular tachycardia), MONCHO (obstructive sleep apnea), Briana-Blackfan anemia Prescriptions: No Action famotidine 20 mg tablet 20 mg PO BID hydroxychloroquine [Plaquenil] 200 mg tablet 200 mg PO BID omeprazole 40 mg capsule,delayed release(DR/EC) 40 mg PO DAILY tramadol 100 mg tablet extended release 24 hr 100 mg PO DAILY citalopram 40 MG tablet 40 mg PO DAILY prednisone 10 mg tablet 40 mg PO DAILY metoprolol tartrate 50 mg tablet 50 mg PO BID Qty: 180 3RF Primary Care Provider: Farooq Pearson Referrals: Farooq Pearson DO [Primary Care Provider] - Print Language: Kinyarwanda Disposition Disposition: Acute Care Hospital Discharge Location: [facility]
[2024-12-19 23:56] VITALS: BP 139/80; PULSE 109; RESP 19; TEMP 36.7; O2SAT 96
--- NOTE | 2024-12-20 01:15 | RAD_ITS ---
PROCEDURE: Portable upright chest radiograph, one view N/A REASON FOR EXAM: NEURO DEFICIT, ACUTE, STROKE SUSPECTED TECHNIQUE: Portable upright chest radiograph, one view COMPARISON: 06/26/2024 FINDINGS: The bones are osteopenic, grossly intact. No pneumothorax or pulmonary vascular congestion. The cardiomediastinal silhouette is similar. No focal airspace consolidation, or pleural effusion. A 2.4 cm vague area of opacity projecting over the lower right hemithorax is favored to be due to summation artifact. RAD/Chest 1 View IMPRESSION: No definite acute cardiopulmonary process. A 2.4 cm vague area of opacity projecting over the central right lower lung/hem ithorax this favored to be due to summation artifact. Recommend a follow-up PA and lateral chest radiograph in 1 week. Reading Location: [facility]
[2024-12-20 06:56] LABS: Anion Gap 15 (5-15); BUN 24 mg/dL (4-19); BUN/Creat Ratio 16.7 RATIO (10-20); Calcium,Total 10.5 mg/dL (7.6-11.0); Carbon Dioxide 24.9 mmol/L (21.0-32.0); Chloride 100 mmol/L (98-108); Creatinine, Serum 1.44 mg/dL (0.70-1.20); EST Glomerular Filtration Rate 62 (>60); Glucose 203 mg/dL (70-99); Sodium Level 141 mmol/L (133-145)
--- NOTE | 2024-12-20 06:59 | ED.RN ---
From 0000 to 0700 see downtime charting.
[2024-12-20 07:00] VITALS: BP 110/75; PULSE 104; PULSE 97; RESP 19; RESP 24; O2SAT 96
[2024-12-20 07:30] VITALS: BP 113/69; PULSE 113; RESP 16; O2SAT 98
[2024-12-20 08:00] VITALS: BP 108/81; PULSE 96; RESP 16; O2SAT 97
[2024-12-20 09:00] LABS: Absolute Lymphocyte Count 3.45 X10^3/uL (0.83-4.51); Absolute Neutrophil Count 10.3 X10^3/uL (2.0-7.7); Basophil# 0.03 X10^3/uL; Basophil% 0.2 % (0-1); Differential Indicated SCAN CRITERIA MET; Eosinophil# 0.02 X10^3/uL; Eosinophils% 0.1 % (0-5); Hemoglobin 12.2 g/dL (13.0-16.5); Lymphocyte # 3.45 X10^3/ul (0.83-4.51); Lymphocyte % 22.1 % (19-41); Mean Corp Hgb Conc 33.9 g/dL (32-36); Mean Corpuscular Hgb 41.4 pg (27.0-32.0); Mean Platelet Vol. 9.3 fl (6.2-12.0); Monocyte% 10.2 % (0-10); NRBC Flagged by Analyzer 0 % (0-5); Neutrophil % 65.9 % (47-70); POSITIVE DIFFERENTIAL YES; POSITIVE MORPHOLOGY YES; Platelet Count 321 K/mm3 (150-450); RBC Distribution Width CV 14.7 % (11.6-14.6); RBC Distribution Width SD 66.9 fl (35.1-43.9); Red Blood Count 2.95 M/mm3 (4.6-6.2); White Blood Count 15.6 K/mm3 (4.4-11.0)
[2024-12-20 09:02] LABS: Pathologist Review May foll
[2024-12-21 06:59] LABS: Bedside Glucose 104 mg/dL (74-106)
== END 2024-12-20 08:26 | disposition short-term general hospital (02) ==
PROVIDERS: Emergency Provider Emergency Medicine; PCP Family Medicine; Visit Provider Emergency Medicine
DX: I63.511 Cerebral infarction due to unspecified occlusion or stenosis of right middle cerebral artery (principal); D61.01 Constitutional (pure) red blood cell aplasia; G81.04 Flaccid hemiplegia affecting left nondominant side; G47.33 Obstructive sleep apnea (adult) (pediatric); I47.10 Supraventricular tachycardia, unspecified; I65.21 Occlusion and stenosis of right carotid artery; R29.810 Facial weakness; K21.9 Gastro-esophageal reflux disease without esophagitis; F17.210 Nicotine dependence, cigarettes, uncomplicated; R20.2 Paresthesia of skin; E66.9 Obesity, unspecified
CPT/HCPCS: 51702; 70450; 70496; 70498; 71045; 80048; 82962; 85025; 85610; 85730; 93005; 96374; 99285; J3101; Q9967; A4216; J2405

== ENCOUNTER 2025-02-04 16:00 | Outpatient (RCR) | payer MEDICARE, MEDICAID, SELFPAY ==
--- NOTE | 2024-12-29 14:49 | HP.OTEVAL ---
Patient's Visit Information Visit Information Visit Information: LEYLA HUNTER Jr. is a 44 year old M, referred to Occupational Therapy by DEVON HOLDER, with a diagnosis of CVA I63.9. Date of Evaluation: 12/29/24 Occupational Therapist: Miracle Klein Subjective Subjective: This 44 year old male arrives with dx of . Pt to ER 12/19/24 with L arm weakness and facial droop as well as slurred speech. pt with significant PMH of supraventricular tachycardia as well as anemia. Pt work up reveals R M3 MCA branch occlusion. TNK provided in hospital. Pt in [facility] for approx 3 days in which time pt states movement came back however does not feel normal. Pt is R hand dominant. Pt on disability at this time not working. 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 Pt states it feels weak, it doesnt do what i want it to do. denies issues with lower extremities at this time. pt lives with significant other who works multimedia designer during the day. Objective Objective/Observation: pt arrives able to complete mobility no AD from front to OT section. ROM ROM Comments: upper extremity ROM WFL does demonstrate tremor of B hands more so on the L side -- tremor increases when trying to focus on a task or with increased use of LUE Strength Shoulder: L shoulder flexion 19.8# R 23.1# Elbow: L bicep 34.8# R bicep: 34.1#; L tricep 25# R tricep 24# Corrosion Control Fitter: L 80# R 120# Lateral Pinch: L 10# R 13# Tripod Pinch: L 8# R 12# Strength Comments: L ER: 31.6# R ER 30.6# Edema Other: denies Sensation Sensation Comments: denies Movement Ataxia: LUE Tremors: B hands Movement Comments: increased difficulty with movement when focusing on it Nine Hole Peg Right: 25 sec Left: 36 sec In-Hand Manipulation Shift: Normal - Right and Moderate - Left Quick DASH-Disab of Arm,Shoulder& Hand Quick DASH Score: 18.1800 Goals Goal:: pt will improve L hand parachute panel joiner strength equal to or greater than non affected side in order to perform day to day tasks pt will improve L hand pinch strength equal to or greater than non affected side in order to perform day to day tasks Goal:: pt will decrease 9 hole peg assessment score equal to or less than non affected side in order to perform day to day tasks Goal:: pt will demonstrate reduction in L UE ataxia as evident by ability to perform simple meal prep tasks with MS reports of x0 spill/mess by discharge Goal:: pt will decrease quick dash score by 5 points or more in order to improve overall use of LUE during day to day tasks pt will rate completion of morning routine on modified dyspnea scale score as 4/10 or less in order to improve overall aerobic capacity Goal:: pt will improve L hand in hand manipulation as evident by ability to shift L fingers from top to bottom of pen 5/5 trials within 45 seconds by discharge pt will improve L hand dysmetria as evident by ability to perform finger to nose assessment 4/5 accuracy. Rehabilitation General Assessment: This 44 year old male arrives with dx of CVA. 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 L hand coordination, ataxia, dysmetria, oin hand manipulation as well as decreased overall aerobic capacity to task. pt does have tremor at baseline that has progressed since CVA. Pt would benefit form OT services 1x a week for 4-6weeks in order to address the above concerns. Rehabilitation Potential: Good Anticipated Interventions Anticipated Interventions: Strengthening, Joint Protection/Energy Conservation, Fine Motor Coord/Tarun, Neuro Reeducation, Education re Diagnosis and Home Program Visit Plan Frequency: 1x/Week Duration: 4-6 Weeks General Plan: L hand parachute panel joiner and pinch strengthening L hand coordination L ataxia L shifts in hand manipulation aerobic capacity dysmetria TEXT: Thank you for the opportunity to evaluate your patient. For Medicare and Medicare HMO plans, please review the plan of care and approve it. It will need to be FAXED BACK to us at [phone] for Medicare purposes. Please let me know if there are questions or concerns regarding this plan of care. Physician Signature: Date:
--- NOTE | 2025-01-11 15:44 | HP.SP.EV_ITS ---
Visit History Visit Info Date of Eval: 01/11/25 Visit: 1 Sewing Teacher: FLETCHER History Attending Doctor: DEVON HOLDER Referring Doctor: DEVON HOLDER Reason for Referral: STROKE/PT HAS RX Medical Diagnosis: CVA, dysarthria Date of Onset of Diagnosis: 12/19/24 Previous speech therapy: Yes Results: In elementary school for articulation. Other Relevant Medical History/Diagnoses/Surgery: Patient had a right MCA CVA on 12-19-24. He was given TPA which helped to resolve some of his symptoms shortly. He was then sent to [facility] where he spent 4 days and was discharged home. 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 Patient has an extensive medical list, much of which is due to his rare blood disorder with systemic steroid use. Other history is acid reflux, chronic pain. Medications related to this diagnosis: See medical list. Smoking Status: Former smoker Diagnosis Diagnosis: Right MCA CVA. Pain Is pain an issue with your current prescribed condition?: No Personal Preferred language: Portuguese Patient Allergies Allergies Allergies: Allergies No Known Allergies Allergy (Verified 12/19/24 23:19) Subjective Oral Motor Comments Comments: No facial drooping at this time. No slurred speech. Patient reported that his tongue feels thick but no numbness. Objective Oral Motor Labial Impairment: WNL Closure: WNL Pucker: WNL Involuntary Movement noted: No Lingual Impairment: WNL Involuntary Movement: No Jaw Impairment: WNL Respiratory Status Respiratory Status: Room Air Subjective Cog/Ling/Com Subjective Cognitive/Linguistic/Communication: Patient reported that at times he gets overloaded when multiple things are going on at the same time. Objective Cog/Ling/Com Test Administered Ejnrdybiq-Plghdpfobb-Ltujagifjsrqf Assessment Administered: Yes Xmyymgiey-Gnuiazvhwi-Wqupituzpqthr Assessment: Cognitive ? Linguistic skills were evaluated using patient/family interview, skilled observation and informal evaluation through tasks completed by the patient. Orientation Orientation: Person and Medical Diagnosis Conversational Tasks Conversational Tasks: WNL Comments: Patient was able to fully participate in conversation and answer all questions fully. Medication Completing medications independently: WNL Executive Function Comments Comments: Patient was able to explain how he does his medications appropriately. He has been completing them independently at home since his discharge. He is completing all tasks at home that he was prior to his CVA. He stated that he at times has difficulty with his left hand as his sensation is not the same as before. The patient states that he becomes overwhelmed with multiple activities (this may present as brain fog or confusion). He is not confused but needs a break from too much input ( quiet, reduced lights, less cognitive involvement of activities). Patient reported that this typically happens more in the evening or when out in high sensory areas like shopping. He was educated on completing tasks earlier in the day when his cognitive abilities are fresh. Also possibly make part of a meal ahead of time or use crock pots, especially on days that he has other appointments. No speech therapy recommended at this time for cognitive deficits. Objective Dysarthira/Motor Speech Intelligibility Phonemes: WNL Single Words: WNL Phrases: WNL Sentences: WNL Conversation: WNL Volume Volume: WNL Observation Observation of Apraxia of Speech: No Oral Groping for Placement: No Inconsistent Errors: No Comments Comments: -: Patient did not need to use any strategies as his speech was fully intelligible. He stated that it becomes more slurred as he fatigues in the evening which is common. Educated the patient on completing tasks earlier in the day when he is at his best. N-JONELLE [place] Dysarthria Assessment Tool Intelligibility:: Intelligible Phonation: Phonation: Adequate Pitch: Adequate Quality: Adequate Resonance: Resonance: Nasality: Adequate Prosody: Prosody: Ability to vary: Yes Articulation: Rate of speech: Adequate Phrase length: Adequate Additional Information: Comment: No therapy recommended for dysarthria. Reference: Neuro-QoL instrument HDQLIFE - Speech Difficulties In the past 7 days. It was difficult for other people to understand me.: Never Is was difficult to speak clearly?: Rarely In the past 7 days.. How often did you limit your social activites because you had difficulty speaking?: Never In the past 7 days... I had trouble speaking.: Not at all I was frustrated by my speech difficulties.: A little bit How much DIFFICULTY do you have... ...saying what you want to say?: No difficulty Score HDQLIFE Speech Difficulties Raw Score: 8 HDQLIFE Speech Difficulties T - Score: 47 Radiation Oncology Patient Plan Plan Plan: No speech therapy warranted at this time. 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 He was provided with education regarding cognitive overload and son was present for information provided. Recommendations Treatment Warranted: No Education Patient has Indicated that the Following Identified Educational Needs: None The Patient has indicated that they have no educational or learning abilities that may effect their care.: Yes Patient Instruction Patient Education: Diagnosis and Treatment Plan Person Taught: Patient and Family Response to teaching: Verbalize Understanding
--- NOTE | 2025-05-25 09:44 | HP.OT.NRP ---
Patient Information Patient Information: LEYLA HUNTER JrVicky was seen in my office for initial evaluation on 12/29/24. The following Plan of Care was established for this patient: POC Established Initial Frequency: 1x/Week Initial Duration: 4-6 Weeks Anticipated Interventions Anticipated Interventions: Strengthening, Joint Protection/Energy Conservation, Fine Motor Coord/Tarun, Neuro Reeducation, Education re Diagnosis and Home Program Last Seen Last Seen: This patient was last seen in our office 02/04/25. Pertinent comments regarding their Occupational therapy will appear below: This 45 year old male seen by OT with dx of CVA. pt seen for eval and 3 additional visits no showed last appointment. discharge from OT at this time due to lapse in time of services. At this point I will be discontinuing this patient from occupational therapy. I would be happy to see this patient again in the future if found appropriate by the physician. Thank you! Miracle Klein
== END 2025-02-04 19:00 | disposition home or self-care (01) ==
LOC: OT 16:00
PROVIDERS: PCP Family Medicine
DX: Z86.73 Personal history of transient ischemic attack (TIA), and cerebral infarction without residual deficits (principal); R47.01 Aphasia
CPT/HCPCS: 92523; 97110; 97166; 97530

== ENCOUNTER → 2025-08-13 | Outpatient (CLI) | payer MEDICARE, MEDICAID, SELFPAY ==
--- NOTE | 2025-08-13 13:09 | RAD_ITS ---
PROCEDURE: RIBS UNI MIN 3V W/PA CHEST 08/13/2025 REASON FOR EXAM: RIB PAIN History of broken ribs. Patient recently leaned over railing now having right rib pain. TECHNIQUE: Procedure Code: RADRIB Modality: DX Procedure: RIBS UNI MIN 3V W/PA CHEST COMPARISON: Chest x-ray dated 12/20/2024. FINDINGS: Cardiomediastinal silhouette is within normal limits. Trachea is midline. Pulmonary vasculature is unremarkable. A linear density is seen in the left lower lobe most likely representing atelectasis. Remaining left lung is clear. There is no pleural effusion or pneumothorax. Right lung is expanded and clear without evidence of lung contusion, pneumothorax, atelectasis, consolidation, effusion or pneumonic infiltrate. Bony demineralization of the bony thorax and ribs are noted. Old healed bilateral rib fractures are noted. There are acute fractures involving the lateral anterior aspect of the right 7th and 8th ribs. They do not appear to be displaced. RAD/Ribs Uni Min 3V w/PA Chest IMPRESSION: Nondisplaced acute fractures involving the lateral anterior aspect of the right 7th and 8th ribs. There is no pneumothorax or lung contusion. There is no pleural effusion. Diffuse osteopenia of the bony thorax is noted. Bilateral old healed rib fractures. Reading Location: [id number]
== END | disposition home or self-care (01) ==
LOC: MTRAD 13:08
PROVIDERS: PCP Family Medicine; Referring Provider Family Medicine; Visit Provider Family Medicine
DX: R07.89 Other chest pain (principal)
CPT/HCPCS: 71101